=== PATIENT | male | born 1955 | race Caucasian/White ===

== ENCOUNTER 2018-05-12 09:10 | Outpatient (CLI) | payer BC ==
[2018-05-12 09:36] LABS: Basophils % (Auto) 0.4 % (0.0-1.8); Eosinophils # (Auto) 0.1 K/mm3 (0.0-0.4); Eosinophils % (Auto) 3.5 % (0.0-4.3); Hematocrit 36.8 % (35.5-45.6); Hemoglobin 12.2 gm/dl (11.8-15.2); Lymphocytes # (Auto) 1.2 K/mm3 (1.2-5.4); Lymphocytes % (Auto) 29.7 % (13.4-35.0); Mean Corpuscular HGB Conc 33 % (32-34); Mean Corpuscular Hemoglobin 28 pg (28-32); Mean Corpuscular Volume 84 fl (84-94); Monocytes # (Auto) 0.6 K/mm3 (0.0-0.8); Monocytes % (Auto) 14.3 % (0.0-7.3); Platelet Count 136 K/mm3 (140-440); Red Blood Count 4.37 M/mm3 (3.65-5.03); Red Cell Distribution Width 15.8 % (13.2-15.2)
[2018-05-12 09:46] LABS: Bilirubin,Urine NEG (Negative); Color,Urine Straw (Yellow)
[2018-05-12 09:47] LABS: Blood,Urine MOD (Negative); Protein,Urine <15 mg/dL mg/dL (Negative); Urobilinogen,Urine < 2.0 mg/dL (<2.0); WBC,Urine < 1.0 /HPF (0.0-6.0)
[2018-05-12 10:02] LABS: Alanine Aminotransferase 11 units/L (7-56); Albumin 4.2 g/dL (3.9-5); BUN/Creatinine Ratio 18; Blood Urea Nitrogen 11 mg/dL (9-20); Calcium 9.1 mg/dL (8.4-10.2); Hemolysis Index 82
== END 2018-05-12 09:11 | disposition home or self-care (01) ==
LOC: LAB 09:10
PROVIDERS: ATTEND Internal Medicine Cardiovascular Disease
DX: K59.1 Functional diarrhea (principal)
CPT/HCPCS: 36415; 80053; 81001; 83036; 84443; 85025; 86803

== ENCOUNTER 2018-08-11 16:45 | Emergency (ER) | payer BC ==
[2018-08-11 16:59] VITALS: BP 177/97
[2018-08-11] MEDS ORDERED: MORPHINE IV ONE (17:21)
[2018-08-11] MEDS ORDERED: ZOFRAN IV ONE (17:21)
[2018-08-11] MEDS ORDERED: NACL 0.9% 1000 ML 1,000 ML IV ONE (17:21)
--- NOTE | 2018-08-11 17:30 | Emergency Department Report ---
ED Abdominal Pain HPI - General Chief Complaint: Abdominal Pain Stated Complaint: STOMACH BLOATED/SHAKY Time Seen by Provider: 08/11/18 17:08 Source: patient Mode of arrival: Ambulatory Limitations: No Limitations - History of Present Illness Initial Comments: 63 y/o male c/o fo 4 day history of abdominal pain, nausea, vomiting and bloating with constipation. Seen pcp but enema and oral rx no help. last bm 2 days ago. MD Complaint: abdominal pain Location: diffuse Radiation: none Migration to: no migration Severity: moderate Quality: fullness, dull Consistency: constant Improves With: nothing Worsens With: nothing Associated Symptoms: nausea, vomiting, constipation. denies: melena, hematuria, anorexia - Related Data Previous Rx's Medication Instructions Recorded Last Taken Type Hyoscyamine Subl [Levsin Sl 0.125 0.125 mg SL Q4HR PRN #20 tablet 08/11/18 Unknown Rx TAB] Ondansetron [Zofran ODT TAB] 8 mg PO Q8HR #10 tab.rapdis 08/11/18 Unknown Rx Allergies Allergy/AdvReac Type Severity Reaction Status Date / Time No Known Allergies Allergy Unverified 05/12/18 09:11 ED Review of Systems ROS: Stated complaint: STOMACH BLOATED/SHAKY Other details as noted in HPI Constitutional: denies: chills, fever Eyes: denies: eye pain, eye discharge, vision change ENT: denies: ear pain, throat pain Respiratory: denies: cough, shortness of breath, wheezing Cardiovascular: denies: chest pain, palpitations Endocrine: no symptoms reported Gastrointestinal: abdominal pain, nausea, vomiting, constipation. denies: diarrhea Genitourinary: denies: urgency, dysuria Musculoskeletal: denies: back pain, joint swelling, arthralgia Skin: denies: rash, lesions Neurological: denies: headache, weakness, paresthesias Psychiatric: denies: anxiety, depression Hematological/Lymphatic: denies: easy bleeding, easy bruising ED Past Medical Hx - Past Medical History Previous Medical History?: No - Surgical History Past Surgical History?: No - Social History Smoking Status: Never Smoker Substance Use Type: Alcohol - Medications Home Medications: Home Medications Medication Instructions Recorded Confirmed Last Taken Type Hyoscyamine Subl [Levsin Sl 0.125 0.125 mg SL Q4HR PRN #20 tablet 08/11/18 Unknown Rx TAB] Ondansetron [Zofran ODT TAB] 8 mg PO Q8HR #10 tab.rapdis 08/11/18 Unknown Rx ED Physical Exam - General Limitations: No Limitations General appearance: alert, in no apparent distress - Head Head exam: Present: atraumatic, normocephalic - Eye Eye exam: Present: normal appearance - ENT ENT exam: Present: normal exam, normal orophraynx, mucous membranes moist - Neck Neck exam: Present: normal inspection, full ROM - Respiratory Respiratory exam: Present: normal lung sounds bilaterally. Absent: respiratory distress, wheezes, rales, rhonchi - Cardiovascular Cardiovascular Exam: Present: regular rate, normal rhythm. Absent: systolic murmur, diastolic murmur, rubs, gallop - GI/Abdominal GI/Abdominal exam: Present: soft, tenderness, normal bowel sounds, hyperactive bowel sounds, other (no cullens or rovsing sign. no greyturner. ). Absent: guarding, rebound - Rectal Rectal exam: Present: deferred - Extremities Exam Extremities exam: Present: normal inspection - Back Exam Back exam: Present: normal inspection. Absent: CVA tenderness (R), CVA tenderness (L) - Neurological Exam Neurological exam: Present: alert, oriented X3, CN II-XII intact, normal gait - Psychiatric Psychiatric exam: Present: normal affect, normal mood - Skin Skin exam: Present: warm, dry, intact, normal color. Absent: rash ED Course Vital Signs 08/11/18 16:55 Temperature 97.5 F L Pulse Rate 89 Respiratory 20 Rate Blood Pressure 177/97 O2 Sat by Pulse 98 Oximetry - Consultations Consultation #1: 08/11/18 21:[address] Barber. CT scan was reviewed as well as labs in the past medical history of the patient. Plan is to consult general surgery to evaluate for admission. As well as large bowel obstruction process going on here likely of a malignant origin ED Medical Decision Making - Lab Data Result diagrams: 08/11/18 17:38 08/11/18 17:38 - Radiology Data Radiology results: report reviewed - Medical Decision Making I did discuss with the patient the findings on the CT scan and laboratory data. Also discomfort in the discussion I had with the attending, Dr. Barber, and recommendation for admission for further evaluation and likely surgical intervention. Patient did decline these recommendations, and he understood all of the risks involved is alert and oriented 3 and of sound judgment. She doesn't understand the risk of chronic infection, chronic bleeding, chronic vomiting, perforation, , severe pain. This was discussed with the patient by myself and also the nursing staff. I spoke with him on 2 separate occasions. However, he continues to decline further recommendations. Critical care attestation.: If time is entered above; I have spent that time in minutes in the direct care of this critically ill patient, excluding procedure time. ED Disposition Clinical Impression: Abdominal pain, Large bowel obstruction Disposition: DC-01 TO HOME OR SELFCARE Is pt being admited?: No Does the pt Need Aspirin: No Condition: Stable Instructions: Acute Abdominal Pain (ED) Prescriptions: Hyoscyamine Subl [Levsin Sl 0.125 TAB] 0.125 mg SL Q4HR PRN #20 tablet PRN Reason: Spasms Ondansetron [Zofran ODT TAB] 8 mg PO Q8HR #10 tab.rapdis Referrals: PRIMARY CARE, [Primary Care Provider] - 3-5 Days Forms: AMA Form
[2018-08-11 18:04] LABS: Basophils % (Auto) 0.2 % (0.0-1.8); Eosinophils % (Auto) 0.1 % (0.0-4.3); Hematocrit 39.7 % (35.5-45.6); Hemoglobin 13.3 gm/dl (11.8-15.2); Lymphocytes # (Auto) 0.9 K/mm3 (1.2-5.4); Lymphocytes % (Auto) 8.2 % (13.4-35.0); Mean Corpuscular HGB Conc 34 % (32-34); Mean Corpuscular Volume 86 fl (84-94); Monocytes % (Auto) 8.7 % (0.0-7.3); Platelet Count 215 K/mm3 (140-440); Red Blood Count 4.62 M/mm3 (3.65-5.03); Red Cell Distribution Width 14.9 % (13.2-15.2)
[2018-08-11 18:11] LABS: Alanine Aminotransferase 9 units/L (7-56); Albumin 4.2 g/dL (3.9-5); BUN/Creatinine Ratio 29; Blood Urea Nitrogen 20 mg/dL (9-20); Calcium 8.5 mg/dL (8.4-10.2); Hemolysis Index 6
--- NOTE | 2018-08-11 19:50 | Cat Scan Report ---
FINAL REPORT PROCEDURE: CT ABDOMEN PELVIS W CON TECHNIQUE: Computerized axial tomography of the abdomen and pelvis was performed after the IV inject ion of iodinated nonionic contrast. HISTORY: Abdominal Pain COMPARISON: No prior studies are available for comparison. FINDINGS: Lower Lung andrade: No focal abnormality seen. Upper Abdomen: Possible small hiatal hernia. The stomach is otherwise unremarkable. Gallbladder is un remarkable. The adrenal glands, the pancreas and spleen are unremarkable. Kidneys, Ureters and Urinary bladder: No abnormalities are seen. Retroperitoneum: Atherosclerotic changes are seen in the abdominal aorta. No aneurysm is visualized. Nonspecific subcentimeter lymph nodes are seen in the retroperitoneum. No pathologically enlarged lym ph nodes are identified. Bowel: On axial image 92 series 2, sagittal image fifty-[age] series 601 and coronal reconstruction im age 67 series 602 there is an abrupt transition in the descending colon. Proximal to this transition large and small bowel are diffusely fluid distended, distal to this the colon is decompressed. There appears to be a short segment stricture. This has somewhat of an apple core type appearance extending over approximately 2.8 centimeters. This could represent an inflammatory stricture. Malignancy in th is area cannot be excluded. Bowel loops otherwise are unremarkable. No ascites or free intraperitonea l gas is seen. Normal-appearing appendix is seen in the right lower quadrant. Small umbilical hernia containing adipose tissue visualized. No herniated loops of bowel are seen. Reproductive organs: Nonspecific diffuse prostate enlargement visualized. Other: No acute bony abnormalities are identified. IMPRESSION: Abnormal area of lumen narrowing in the descending colon as described. A stricture appears to be pres ent. Inflammatory and malignant stricture could both present this manner. Moderate obstruction is see n at this site. No free air or ascites is visualized. Possible small hiatal hernia. Nonspecific diffuse prostate enlargement.
== END 2018-08-11 22:01 | disposition left against medical advice (07) ==
LOC: ED 16:45
DX: K56.699 Other intestinal obstruction unspecified as to partial versus complete obstruction (principal)
CPT/HCPCS: 36415; 74177; 80053; 83690; 85025; 96374; 96375; 99284; J2270; J2405; J7030; Q9967

== ENCOUNTER 2018-08-13 05:56 | Inpatient (IN) | payer BC ==
[2018-08-13] MEDS ORDERED: NACL 0.9% 1000 ML 1,000 ML IV ONE (06:06)
[2018-08-13 06:33] LABS: Hematocrit 38.8 % (35.5-45.6); Hemoglobin 13.2 gm/dl (11.8-15.2); Mean Corpuscular HGB Conc 34 % (32-34); Mean Corpuscular Volume 85 fl (84-94); Platelet Count 209 K/mm3 (140-440); Red Blood Count 4.57 M/mm3 (3.65-5.03); Red Cell Distribution Width 15.1 % (13.2-15.2)
[2018-08-13 06:45] LABS: Bilirubin,Urine NEG (Negative); Blood,Urine MOD (Negative); Color,Urine Amber (Yellow); Mucus,Urine 3+ /HPF
--- NOTE | 2018-08-13 06:50 | Emergency Department Report ---
ED Abdominal Pain HPI - General Chief Complaint: Abdominal Pain Stated Complaint: STOMACH PAIN Time Seen by Provider: 08/13/18 06:31 Source: patient Mode of arrival: Ambulatory Limitations: No Limitations - History of Present Illness Initial Comments: Vision is 63-year-old male that presents emergency room with complaints of abdominal pain going on for 4-5 days. Patient states he was seen here 2 days ago and found to have a large bowel obstruction however refused admission to the hospital. Patient states that he will stay in the hospital for necessary this time. Patient states his symptoms are worsening. Patient states his abdomen is more distended and has nausea vomiting is worsening. Patient denies bowel movement for the last few days as well. Patient denies fever or chills. There is no chest pain shortness of breath. Patient denies blood in the vomitus. MD Complaint: abdominal pain -: Sudden Location: diffuse Radiation: none Migration to: no migration Severity: severe Severity scale (0 -10): 8 Quality: aching, fullness Consistency: constant Improves With: rest Worsens With: eating, vomiting Associated Symptoms: nausea, vomiting, constipation. denies: diarrhea, fever, chills, dysuria, hematemesis, hematochezia, melena, hematuria, anorexia, syncope - Related Data Previous Rx's Medication Instructions Recorded Last Taken Type Hyoscyamine Subl [Levsin Sl 0.125 0.125 mg SL Q4HR PRN #20 tablet 08/11/18 Unknown Rx TAB] Ondansetron [Zofran ODT TAB] 8 mg PO Q8HR #10 tab.rapdis 08/11/18 Unknown Rx Allergies Allergy/AdvReac Type Severity Reaction Status Date / Time No Known Allergies Allergy Verified 08/13/18 06:05 ED Review of Systems ROS: Stated complaint: STOMACH PAIN Other details as noted in HPI Constitutional: denies: chills, fever Eyes: denies: eye pain, eye discharge, vision change ENT: denies: ear pain, throat pain Respiratory: denies: cough, shortness of breath, wheezing Cardiovascular: denies: chest pain, palpitations Endocrine: no symptoms reported Gastrointestinal: abdominal pain, nausea, vomiting, constipation. denies: diarrhea Genitourinary: denies: urgency, dysuria Musculoskeletal: denies: back pain, joint swelling, arthralgia Skin: denies: rash, lesions Neurological: denies: headache, weakness, paresthesias Psychiatric: denies: anxiety, depression Hematological/Lymphatic: denies: easy bleeding, easy bruising ED Past Medical Hx - Past Medical History Previous Medical History?: No - Surgical History Past Surgical History?: No - Family History Family history: no significant - Social History Smoking Status: Never Smoker Substance Use Type: None - Medications Home Medications: Home Medications Medication Instructions Recorded Confirmed Last Taken Type Hyoscyamine Subl [Levsin Sl 0.125 0.125 mg SL Q4HR PRN #20 tablet 08/11/18 Unknown Rx TAB] Ondansetron [Zofran ODT TAB] 8 mg PO Q8HR #10 tab.rapdis 08/11/18 Unknown Rx ED Physical Exam - General Limitations: No Limitations General appearance: alert, in no apparent distress - Head Head exam: Present: atraumatic, normocephalic - Eye Eye exam: Present: normal appearance - ENT ENT exam: Present: mucous membranes moist - Neck Neck exam: Present: normal inspection - Respiratory Respiratory exam: Present: normal lung sounds bilaterally. Absent: respiratory distress - Cardiovascular Cardiovascular Exam: Present: regular rate, normal rhythm. Absent: systolic murmur, diastolic murmur, rubs, gallop - GI/Abdominal GI/Abdominal exam: Present: soft, distended, tenderness (generalized abdominal tenderness), normal bowel sounds - Rectal Rectal exam: Present: deferred - Extremities Exam Extremities exam: Present: normal inspection - Back Exam Back exam: Present: normal inspection - Neurological Exam Neurological exam: Present: alert, oriented X3 - Psychiatric Psychiatric exam: Present: normal affect, normal mood - Skin Skin exam: Present: warm, dry, intact, normal color. Absent: rash ED Course Vital Signs 08/13/18 08/13/18 08/13/18 06:01 06:31 06:53 Temperature 97.3 F L Pulse Rate 106 H 91 H Respiratory 22 21 16 Rate Blood Pressure 147/80 141/77 Blood Pressure [Left] O2 Sat by Pulse 99 96 96 Oximetry 08/13/18 07:08 Temperature 97.6 F Pulse Rate 90 Respiratory 16 Rate Blood Pressure Blood Pressure 132/79 [Left] O2 Sat by Pulse 98 Oximetry - Reevaluation(s) Reevaluation #1: Initial evaluation done. Reviewed previous CT and labs. Discussed previous results with patient. Patient agrees to admission this time. We will consult Gen. surgery 08/13/18 06:30 - Consultations Consultation #1: Discussed case with general surgery, Dr keys. They recommended admission and did not recommend a repeat CT of the abdomen. They also recommend GI consult 08/13/18 07:20 Consultation #2: Hospital is consult for admission. Hospitalist to admit patient. Hospitalist to assume care patient. Bridge orders placed 08/13/18 07:30 ED Medical Decision Making - Lab Data Result diagrams: 08/13/18 06:09 08/13/18 06:09 - Radiology Data Radiology results: report reviewed CT from previous visit are reviewed and shows large bowel obstruction - Medical Decision Making Patient is 63-year-old male who presents emergency with worsening abdominal distention and nausea vomiting. Patient found to have on previous ER visit a large bowel obstruction. Patient refuses admission. Patient agrees to admission this time. Patient admitted to the hospitalist service for further evaluation treatment. - Differential Diagnosis large bowel obstruction. Intractable nausea and vomiting. Abdominal pain Critical Care Time: Yes Critical care attestation.: If time is entered above; I have spent that time in minutes in the direct care of this critically ill patient, excluding procedure time. Critical Care Time: 35 minutes ED Disposition Clinical Impression: Large bowel obstruction Abdominal pain Qualifiers: Abdominal location: generalized Qualified Code(s): R10.84 - Generalized abdominal pain Intractable nausea and vomiting Qualifiers: Vomiting type: unspecified Qualified Code(s): R11.2 - Nausea with vomiting, unspecified Disposition: OP ADMIT IP TO THIS HOSP Is pt being admited?: Yes Does the pt Need Aspirin: No Condition: Critical Time of Disposition: 07:30
[2018-08-13 06:57] LABS: Alanine Aminotransferase 12 units/L (7-56); Albumin 3.9 g/dL (3.9-5); BUN/Creatinine Ratio 23; Blood Urea Nitrogen 16 mg/dL (9-20); Calcium 8.6 mg/dL (8.4-10.2); Hemolysis Index 5
[2018-08-13] MEDS ORDERED: DILAUDID IV ONE (08:08)
[2018-08-13 08:44] LABS: Band Neutrophils # (Manual) 0.3 K/mm3; Total Cells Counted 100
[2018-08-13 08:45] LABS: Ovalocytes Rare; Platelet Estimate Consistent w Auto; Poikilocytosis 1+
--- NOTE | 2018-08-13 10:08 | Consultation ---
History of Present Illness Consult date: 08/13/18 Reason for consult: abdominal pain Requesting physician: CHRISTIANO LOPEZ Chief complaint: abdominal pain and bloating - History of present illness History of present illness: 63yo, o/w healthy male, presents with a 1 week h/o abdominal distention, pain, N/V. Denies any recent passage of flatus. He reports that he last had a BM 2-3 days ago with an enema. Prior to that, it had been coming in a scattered fashion. It recently has been appearing black. Denies any BRBPR. Not sure if he has lost weight. Up until recently, has been feeling well with no change in appetite. No family history of intestinal problems or cancer. No personal history of intestinal problems, infections, etc. 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 denies: smoking, prescription drug abuse, IV drug use Family history: no significant family history Medications and Allergies Allergies Allergy/AdvReac Type Severity Reaction Status Date / Time No Known Allergies Allergy Verified 08/13/18 06:05 Home Medications Medication Instructions Recorded Confirmed Last Taken Type Hyoscyamine Subl [Levsin Sl 0.125 0.125 mg SL Q4HR PRN #20 tablet 08/11/18 Unknown Rx TAB] Ondansetron [Zofran ODT TAB] 8 mg PO Q8HR #10 tab.rapdis 08/11/18 Unknown Rx Review of Systems - Constitutional no weight loss, no weight gain, no fever, no chills, no sweats, no night sweats, no chronic pain - Cardiovascular no chest pain, no shortness of breath - Respiratory no cough, no hemoptysis - Gastrointestinal abdominal pain, nausea, vomiting, change in bowel habits, dyspepsia/bloating, no hematemesis, no coffee ground emesis, no BRBPR, no melena, no hematochezia - Genitourinary no dysuria, no flank pain - Muskuloskeletal no low back pain - Integumentary no rash, no pruritis, no redness, no sores, no wounds, no jaundice, no boils Exam Vital Signs Temp Pulse Resp BP Pulse Ox 97.3 F L 106 H 22 147/80 99 08/13/18 06:01 08/13/18 06:01 08/13/18 06:01 08/13/18 06:01 08/13/18 06:01 - General physical appearance Positive: no distress, no pain, other (very pleasant) - Eyes Positive: normal occular movement. Negative: icteric - Respiratory Positive: normal expansion, normal respiratory effort, clear to auscultation - Cardiovascular Rhythm: regular - Extremities Extremities: no ischemia, pulses symmetrical, No edema - Abdomen Abdomen: Present: soft, tender (minimal), bowel sounds hypoactive, distended. Absent: masses, guarding, rigid, wound, surgical scars - Integumentary no rash, no growths, no abnormal pigmentation - Neurologic Neurologic: alert and oriented to time, place and person, motor strength and sensation are grossly intact - Psychiatric Psychiatric: appropriate mood/affect, intact judgment & insight Results - Labs 08/13/18 06:09 08/13/18 06:09 Abnormal lab results 08/13/18 08/13/18 08/13/18 Range/Units 06:09 06:09 Unknown WBC 3.4 L (4.5-11.0) K/mm3 Monocytes % (Manual) 20.0 H (0.0-7.3) % Basophils % (Manual) 3.0 H (0.0-1.8) % Seg Neutrophils # Man 1.7 L (1.8-7.7) K/mm3 Lymphocytes # (Manual) 0.6 L (1.2-5.4) K/mm3 Sodium 136 L (137-145) mmol/L Chloride 95.3 L (98-107) mmol/L Creatinine 0.7 L (0.8-1.5) mg/dL Glucose 118 H (75-100) mg/dL Lipase 12 L (13-60) units/L Ur Specific [place] 1.036 H (1.003-1.030) Diabetes panel 08/13/18 Range/Units 06:09 Sodium 136 L (137-145) mmol/L Potassium 3.8 (3.6-5.0) mmol/L Chloride 95.3 L (98-107) mmol/L Carbon Dioxide 24 (22-30) mmol/L BUN 16 (9-20) mg/dL Creatinine 0.7 L (0.8-1.5) mg/dL Glucose 118 H (75-100) mg/dL Calcium 8.6 (8.4-10.2) mg/dL AST 18 (5-40) units/L ALT 12 (7-56) units/L Alkaline Phosphatase 52 (35-129) units/L Total Protein 6.7 (6.3-8.2) g/dL Albumin 3.9 (3.9-5) g/dL Calcium panel 08/13/18 Range/Units 06:09 Calcium 8.6 (8.4-10.2) mg/dL Albumin 3.9 (3.9-5) g/dL Pituitary panel 08/13/18 Range/Units 06:09 Sodium 136 L (137-145) mmol/L Potassium 3.8 (3.6-5.0) mmol/L Chloride 95.3 L (98-107) mmol/L Carbon Dioxide 24 (22-30) mmol/L BUN 16 (9-20) mg/dL Creatinine 0.7 L (0.8-1.5) mg/dL Glucose 118 H (75-100) mg/dL Calcium 8.6 (8.4-10.2) mg/dL Adrenal panel 08/13/18 Range/Units 06:09 Sodium 136 L (137-145) mmol/L Potassium 3.8 (3.6-5.0) mmol/L Chloride 95.3 L (98-107) mmol/L Carbon Dioxide 24 (22-30) mmol/L BUN 16 (9-20) mg/dL Creatinine 0.7 L (0.8-1.5) mg/dL Glucose 118 H (75-100) mg/dL Calcium 8.6 (8.4-10.2) mg/dL Total Bilirubin 0.70 (0.1-1.2) mg/dL AST 18 (5-40) units/L ALT 12 (7-56) units/L Alkaline Phosphatase 52 (35-129) units/L Total Protein 6.7 (6.3-8.2) g/dL Albumin 3.9 (3.9-5) g/dL - Imaging CT scan - abdomen: report reviewed, image reviewed CT scan - pelvis: report reviewed, image reviewed Assessment and Plan - Patient Problems (1) Large bowel obstruction Current Visit: Yes Status: Acute Plan to address problem: Pt stable. No emergency procedure needed at this time. Pt appears to have an obstructing lesion in the left colon. My suspicion is that this is a cancer and would benefit from surgery. Pt would like to explore alternatives. I spoke with GI and asked them to consult. Hopefully, they will be able to scope the patient. Will order a CEA level. Would keep patient NPO for now. Will be available as needed. Please call with questions.
--- NOTE | 2018-08-13 10:19 | History and Physical Report ---
History of Present Illness Date of examination: 08/13/18 Date of admission: 08/13/18 07:59 History of present illness: 63-year-old male w/o ant PMH presents to the emergency room with complaints of abdominal pain going on for 4-5 days. Patient was seen here 2 days ago and found to have a large bowel obstruction however he refused admission to the hospital. but Patient states his symptoms are worsening with more abdominal distention along with N/V and that he will stay in the hospital as necessary this time. Patient denies denies fever or chills, had no bowel movement for the last few days as well. GS consulted from ER and he is being admitted for further evaluation and management. Review of Systems Constitutional: denies: chills, fever Eyes: denies: eye pain, eye discharge, vision change ENT: denies: ear pain, throat pain Respiratory: denies: cough, shortness of breath, wheezing Cardiovascular: denies: chest pain, palpitations Endocrine: no symptoms reported Gastrointestinal: abdominal pain, nausea, vomiting, constipation. denies: diarrhea Genitourinary: denies: urgency, dysuria Musculoskeletal: denies: back pain, joint swelling, arthralgia Skin: denies: rash, lesions Neurological: denies: headache, weakness, paresthesias Psychiatric: denies: anxiety, depression Hematological/Lymphatic: denies: easy bleeding, easy bruising Past History Past Medical History: No medical history Past Surgical History: No surgical history Social history: , lives with family. denies: smoking, prescription drug abuse Family history: denies: CAD, cancer, diabetes, hypertension, stroke Medications and Allergies Allergies Allergy/AdvReac Type Severity Reaction Status Date / Time No Known Allergies Allergy Verified 08/13/18 06:05 Home Medications Medication Instructions Recorded Confirmed Last Taken Type Hyoscyamine Subl [Levsin Sl 0.125 0.125 mg SL Q4HR PRN #20 tablet 08/11/18 08/13/18 Unknown Rx TAB] Ondansetron [Zofran ODT TAB] 8 mg PO Q8HR #10 tab.rapdis 08/11/18 08/13/18 Unknown Rx Exam - Constitutional Vitals: Temp Pulse Resp BP Pulse Ox 97.6 F 90 16 132/79 98 08/13/18 07:08 08/13/18 07:08 08/13/18 07:08 08/13/18 07:08 08/13/18 07:08 General appearance: Present: mild distress - EENT Eyes: Present: PERRL ENT: hearing intact, clear oral mucosa - Neck Neck: Present: supple, normal ROM - Respiratory Respiratory effort: normal Respiratory: bilateral: CTA - Cardiovascular Heart Sounds: Present: S1 & S2. Absent: rub, click - Extremities Extremities: pulses symmetrical, No edema Peripheral Pulses: within normal limits - Abdominal General gastrointestinal: Present: tender, distended, normal bowel sounds Localized gastrointestinal: tender: diffuse - Integumentary Integumentary: Present: clear, warm, dry - Musculoskeletal Musculoskeletal: gait normal, strength equal bilaterally - Psychiatric Psychiatric: appropriate mood/affect, intact judgment & insight - Neurologic Neurologic: CNII-XII intact, moves all extremities Results - Labs CBC & Chem 7: 08/13/18 06:09 08/13/18 06:09 Labs: Abnormal lab results 08/13/18 08/13/18 08/13/18 Range/Units 06:09 06:09 Unknown WBC 3.4 L (4.5-11.0) K/mm3 Monocytes % (Manual) 20.0 H (0.0-7.3) % Basophils % (Manual) 3.0 H (0.0-1.8) % Seg Neutrophils # Man 1.7 L (1.8-7.7) K/mm3 Lymphocytes # (Manual) 0.6 L (1.2-5.4) K/mm3 Sodium 136 L (137-145) mmol/L Chloride 95.3 L (98-107) mmol/L Creatinine 0.7 L (0.8-1.5) mg/dL Glucose 118 H (75-100) mg/dL Lipase 12 L (13-60) units/L Ur Specific [place] 1.036 H (1.003-1.030) Assessment and Plan Abdominal pain with n/v - Intestinal obstruction - likely due to an obstructing lesion in the left colon. - admit to surgical unit, refusing surgery and asking for different options - GI consulted, keep NPO, - supportive care with iv fluid, pain control - DVt Px CT abdomen/pelvis: Abnormal area of lumen narrowing in the descending colon as described. A stricture appears to be present. Inflammatory and malignant stricture could both present this manner. Moderate obstruction is seen at this site. No free air or ascites is visualized. Possible small hiatal hernia. Nonspecific diffuse prostate enlargement.
[2018-08-13] MEDS ORDERED: ZOFRAN IV PRN (10:20)
[2018-08-13] MEDS ORDERED: APRESOLINE IV PRN (10:20)
[2018-08-13] MEDS ORDERED: ATIVAN IV PRN (10:20)
[2018-08-13] MEDS: MORPHINE IV PRN ×2 (11:59→18:27)
[2018-08-13] MEDS: D5NS 1,000 ML IV SCH ×2 (12:00→22:47)
--- NOTE | 2018-08-13 13:53 | Gastroenterology Consultation ---
Addendum entered and electronically signed by CORRINE BARRIOS MD 08/13/18 15:14: I have personally interviewed and examined the patient. I agree with the above A/P. I discussed the risks of perforation with the patient, in someone already markedly distended (or aspiration), as well as the fact that stenting is a temporary bridge to surgery, and would not prevent the ultimate need for surgical intervention. Ideally, visualization and biopsy of the unerlying colon lesion would be done first, but given the degree of distention the high-grade obstruction, I think the patient would be most effectively treated by surgery, even if a (temporary) colostomy is needed after the procedure. The patient voiced understanding of the problem, and wishes to rediscuss surgical int ervention with Dr Teixeira. Original Note: History of Present Illness - Reason for Consult Consult date: 08/13/18 colon obstruction Requesting physician: ELISHA TEIXEIRA - History of Present Illness Patient is a 63 y/o male with no significant medical history who presented to ED with w/o abd pain with associated abd distention, N/V, and constipation. He was seen here 2 days ago and found to have a large bowel obstruction seen on CT, however he refused admission to the hospital at that time. Patient has been seen by surgery with recommendations for surgery, however patient is currently refusing and would like to explore alternative options if possible. GI has been consulted for a possible colonoscopy. This afternoon patient was resting in bed w/o acute distress. He reports intermittent abd pain with a change in bowel habits/constipation x 3 months that has progressively worsened over the last 4-5 days with developing N/V and inabilty to tolerate PO. Last BM 2-3 days ago with an enema. No recent flatus. Denies fever, CP, SOB, signs of bleeding, or d iarrhea. He is unsure if he has lost weight. No hx or Fhx of IBD or GI cancers. No previous colonoscopy. Upon exam, abdomen is distended with hypoactive bowel sounds. 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 denies: smoking, prescription drug abuse, IV drug use Family history: no significant family history Medications and Allergies Allergies Allergy/AdvReac Type Severity Reaction Status Date / Time No Known Allergies Allergy Verified 08/13/18 06:05 Home Medications Medication Instructions Recorded Confirmed Last Taken Type Hyoscyamine Subl [Levsin Sl 0.125 0.125 mg SL Q4HR PRN #20 tablet 08/11/18 Unknown Rx TAB] Ondansetron [Zofran ODT TAB] 8 mg PO Q8HR #10 tab.rapdis 08/11/18 Unknown Rx Active Meds: Active Medications Hydralazine HCl (Apresoline) 5 mg IV Q30MIN PRN PRN Reason: Hypertension Dextrose/Sodium Chloride (D5ns) 1,000 mls @ 125 mls/hr IV DIRECT CK Last Admin: 08/13/18 12:00 Dose: 125 mls/hr Documented by: Lorazepam (Ativan) 2 mg IV Q4H PRN PRN Reason: Agitation Morphine Sulfate (Morphine) 2 mg IV Q3H PRN PRN Reason: Pain, Moderate (4-6) Last Admin: 08/13/18 11:59 Dose: 2 mg Documented by: Ondansetron HCl (Zofran) 4 mg IV Q8H PRN PRN Reason: Nausea And Vomiting medications reviewed/updated as required Review of Systems - Review of Systems All systems: negative Gastrointestinal: abdominal pain, nausea, vomiting, constipation Exam - Constitutional Vital Signs: Temp Pulse Resp BP Pulse Ox 97.6 F 90 16 132/79 98 08/13/18 07:08 08/13/18 07:08 08/13/18 07:08 08/13/18 07:08 08/13/18 07:08 General appearance: no acute distress - Respiratory Respiratory: bilateral: CTA - Cardiovascular Rhythm: regular Heart Sounds: Present: S1 & S2 - Gastrointestinal General gastrointestinal: Present: soft, tender (slight generalized TTP), distended, hypoactive bowel sounds - Neurologic Neurological: alert and oriented x3 - Labs CBC & Chem 7: 08/13/18 06:09 08/13/18 06:09 Lab Results: Laboratory Results - last 24 hr 08/13/18 08/13/18 08/13/18 06:09 06:09 07:32 WBC 3.4 L RBC 4.57 Hgb 13.2 Hct 38.8 MCV 85 MCH 29 MCHC 34 RDW 15.1 Plt Count 209 [place] % (Auto) Billet Heater Add Manual Diff Complete Total Counted 100 Seg Neuts % (Manual) 49.0 Band Neutrophils % 9.0 Lymphocytes % (Manual) 18.0 Reactive Lymphs % (Man) 0 Monocytes % (Manual) 20.0 H Eosinophils % (Manual) 1.0 Basophils % (Manual) 3.0 H Metamyelocytes % 0 Myelocytes % 0 Promyelocytes % 0 Blast Cells % 0 Nucleated RBC % Not Reportable Seg Neutrophils # Man 1.7 L Band Neutrophils # 0.3 Lymphocytes # (Manual) 0.6 L Abs React Lymphs (Man) 0.0 Monocytes # (Manual) 0.7 Eosinophils # (Manual) 0.0 Basophils # (Manual) 0.1 Metamyelocytes # 0.0 Myelocytes # 0.0 Promyelocytes # 0.0 Blast Cells # 0.0 WBC Morphology Not Reportable Hypersegmented Neuts Not Reportable Hyposegmented Neuts Not Reportable Hypogranular Neuts Not Reportable Smudge Cells Not Reportable Toxic Granulation Not Reportable Toxic Vacuolation Not Reportable Dohle Bodies Not Reportable Pelger-Huet Anomaly Not Reportable Emy Rods Not Reportable Platelet Estimate Consistent w auto Clumped Platelets Not Reportable Plt Clumps, EDTA Not Reportable Large Platelets Not Reportable Giant Platelets Not Reportable Platelet Satelliting Not Reportable Plt Morphology Comment Not Reportable RBC Morphology Not Reportable Dimorphic RBCs Not Reportable Polychromasia Not Reportable Hypochromasia Not Reportable Poikilocytosis 1+ Anisocytosis Not Reportable Microcytosis Not Reportable Macrocytosis Not Reportable Spherocytes Not Reportable Pappenheimer Bodies Not Reportable Sickle Cells Not Reportable Target Cells Not Reportable Tear Drop Cells Not Reportable Ovalocytes Rare Helmet Cells Not Reportable Urias-[place] Bodies Not Reportable Zumbrota Rings Not Reportable Hixton Cells Not Reportable Bite Cells Not Reportable Crenated Cell Not Reportable Elliptocytes Not Reportable Acanthocytes (Spur) Not Reportable Rouleaux Not Reportable Hemoglobin C Crystals Not Reportable Schistocytes Not Reportable Malaria parasites Not Reportable Dannie Bodies Not Reportable Hem Pathologist Commnt No Sodium 136 L Potassium 3.8 Chloride 95.3 L Carbon Dioxide 24 Anion Gap 21 BUN 16 Creatinine 0.7 L Estimated GFR > 60 BUN/Creatinine Ratio 23 Glucose 118 H Lactic Acid 0.70 Calcium 8.6 Total Bilirubin 0.70 AST 18 ALT 12 Alkaline Phosphatase 52 Total Protein 6.7 Albumin 3.9 Albumin/Globulin Ratio 1.4 Lipase 12 L Urine Color Urine Turbidity Urine pH Ur Specific Menan Urine Protein Urine Glucose (UA) Urine Ketones Urine Blood Urine Nitrite Urine Bilirubin Urine Urobilinogen Ur Leukocyte Esterase Urine WBC (Auto) Urine RBC (Auto) U Epithel Cells (Auto) Urine Mucus 08/13/18 Unknown WBC RBC Hgb Hct MCV MCH MCHC RDW Plt Count Traverse % (Auto) Add Manual Diff Total Counted Seg Neuts % (Manual) Band Neutrophils % Lymphocytes % (Manual) Reactive Lymphs % (Man) Monocytes % (Manual) Eosinophils % (Manual) Basophils % (Manual) Metamyelocytes % Myelocytes % Promyelocytes % Blast Cells % Nucleated RBC % Seg Neutrophils # Man Band Neutrophils # Lymphocytes # (Manual) Abs React Lymphs (Man) Monocytes # (Manual) Eosinophils # (Manual) Basophils # (Manual) Metamyelocytes # Myelocytes # Promyelocytes # Blast Cells # WBC Morphology Hypersegmented Neuts Hyposegmented Neuts Hypogranular Neuts Smudge Cells Toxic Granulation Toxic Vacuolation Dohle Bodies Pelger-Huet Anomaly Emy Rods Platelet Estimate Clumped Platelets Plt Clumps, EDTA Large Platelets Giant Platelets Platelet Satelliting Plt Morphology Comment RBC Morphology Dimorphic RBCs Polychromasia Hypochromasia Poikilocytosis Anisocytosis Microcytosis Macrocytosis Spherocytes Pappenheimer Bodies Sickle Cells Target Cells Tear Drop Cells Ovalocytes Helmet Cells Urias-Rob[place] Bodies Zumbrota Rings Mariusz Cells Bite Cells Crenated Cell Elliptocytes Acanthocytes (Spur) Rouleaux Hemoglobin C Crystals Schistocytes Malaria parasites Dannie Bodies Hem Pathologist Commnt Sodium Potassium Chloride Carbon Dioxide Anion Gap BUN Creatinine Estimated GFR BUN/Creatinine Ratio Glucose Lactic Acid Calcium Total Bilirubin AST ALT Alkaline Phosphatase Total Protein Albumin Albumin/Globulin Ratio Lipase Urine Color Velia Urine Turbidity Hazy Urine pH 5.0 Ur Specific Menan 1.036 H Urine Protein 30 mg/dl Urine Glucose (UA) Neg Urine Ketones 80 Urine Blood Mod Urine Nitrite Neg Urine Bilirubin Neg Urine Urobilinogen 4.0 Ur Leukocyte Esterase Neg Urine WBC (Auto) 3.0 Urine RBC (Auto) 28.0 U Epithel Cells (Auto) < 1.0 Urine Mucus 3+ Assessment and Plan 1.large bowel obstruction -etiology-likely malignant in origin -abd CT showed abnormal area of lumen narrowing in the descending colon (inflammatory vs malignant stricture?) with moderate obstruction -surgery is following- patient currently refusing surgical intervention -CEA level pending -Keep NPO -will discuss the option of a colonoscopy/flex sig with Dr. Barrios and have him review imaging -continue supportive care -further recommendations to follow
[2018-08-13] MEDS ORDERED: FLEET PR ONE (20:00)
[2018-08-14] MEDS: D5NS 1,000 ML IV SCH ×2 (07:29→17:16)
--- NOTE | 2018-08-14 09:52 | Progress Note ---
Assessment and Plan - Patient Problems (1) Large bowel obstruction Current Visit: Yes Status: Acute Plan to address problem: Pt stable. Tentatively planning for left hemicolectomy tomorrow. Pre-op orders placed for today. Pt had good result with enema last night. Will repeat today to further aid cleaning and help decompress the colon. Consent obtained last night. Please call with questions. time=10min Subjective Date of service: 08/14/18 Patient Reports: Positive: feels better, pain is less, bowel movement (with enema). Negative: nausea, vomiting Objective Vital Signs - 12hr 08/13/18 08/14/18 08/14/18 22:00 05:00 07:45 Temperature 98.2 F 97.9 F Pulse Rate 94 H 92 H Pulse Rate [ 95 H Left Radial] Respiratory 16 18 Rate Respiratory 17 Rate [abd] Blood Pressure 109/78 114/79 [Left] O2 Sat by Pulse 95 95 96 Oximetry - General physical appearance no distress, no pain - Eyes normal occular movement - Respiratory normal expansion, normal respiratory effort - Abdomen soft, not tender, distended (less today), not masses, not guarding, not rigid - Integumentary no rash, no growths, no abnormal pigmentation - Psychiatric oriented to time, oriented to person, oriented to place, speech is normal, memory intact - Labs 08/13/18 06:09 08/13/18 06:09
[2018-08-14] MEDS ORDERED: FLEET PR ONE (10:00)
--- NOTE | 2018-08-14 11:35 | Gastroenterology Progress Note ---
Addendum entered and electronically signed by CORRINE BARRIOS MD 08/14/18 15:01: I have personally interviewed and examined the patient. I agree with the above A/P. Agree with the current plan. Original Note: Assessment and Plan 1.large bowel obstruction -etiology-likely malignant in origin -abd CT showed abnormal area of lumen narrowing in the descending colon (inflammatory vs malignant stricture?) with moderate obstruction -CEA level pending -no plans for colonoscopy-contraindicated given high-grade obstruction -surgery following with patient now agreeable to proceed with left hemicolectomy (scheduled for tomorrow) -Keep NPO -continue supportive care -further management per surgery -will sign off, please call if needed Subjective Date of service: 08/14/18 Principal diagnosis: large bowel obstruction Interval history: Patient resting in bed this am w/o acute distress. Reports feeling better today with abd pain/distention improved after BM overnight with enema. No N/V. Objective - Constitutional Vitals: Temp Pulse Resp BP Pulse Ox 97.9 F 92 H 18 114/79 96 08/14/18 07:45 08/14/18 07:45 08/14/18 07:45 08/14/18 07:45 08/14/18 07:45 General appearance: no acute distress - Respiratory Respiratory: bilateral: CTA - Cardiovascular Rhythm: regular Heart Sounds: Present: S1 & S2 - Gastrointestinal General gastrointestinal: Present: soft, non-tender, distended (improved today), hypoactive bowel sounds - Neurologic Neurological: alert and oriented x3 - Labs CBC & Chem 7: 08/13/18 06:09 08/13/18 06:09
--- NOTE | 2018-08-14 13:54 | Progress Note ---
Assessment and Plan Abdominal pain with n/v - Intestinal obstruction - likely due to an obstructing lesion in the left colon. - monitor at surgical unit, surgery following with patient now agreeable to proceed with left hemicolectomy (scheduled for tomorrow) - keep NPO, cont supportive care with iv fluid, pain control - DVt Px, monitor and replete electrolytes as needed CT abdomen/pelvis: Abnormal area of lumen narrowing in the descending colon as described. A stricture appears to be present. Inflammatory and malignant stricture could both present this manner. Moderate obstruction is seen at this site. No free air or ascites is visualized. Possible small hiatal hernia. Nonspecific diffuse prostate enlargement. Subjective Date of service: 08/14/18 Principal diagnosis: large bowel obstruction Interval history: Patient seen and examined had BM with enema as a part of bowel prep patient agreeable for surgery Objective - Exam Narrative Exam: General appearance: Present: mild distress - EENT Eyes: Present: PERRL ENT: hearing intact, clear oral mucosa - Neck Neck: Present: supple, normal ROM - Respiratory Respiratory effort: normal Respiratory: bilateral: CTA - Cardiovascular Heart Sounds: Present: S1 & S2. Absent: rub, click - Extremities Extremities: pulses symmetrical, No edema Peripheral Pulses: within normal limits - Abdominal General gastrointestinal: Present: tender, distended, normal bowel sounds Localized gastrointestinal: tender: diffuse - Integumentary Integumentary: Present: clear, warm, dry - Musculoskeletal Musculoskeletal: gait normal, strength equal bilaterally - Psychiatric Psychiatric: appropriate mood/affect, intact judgment & insight - Neurologic Neurologic: CNII-XII intact, moves all extremities - Constitutional Vitals: Vital Signs - 12hr 08/14/18 08/14/18 08/14/18 05:00 07:45 11:14 Temperature 98.2 F 97.9 F Pulse Rate 94 H 92 H 84 Respiratory 16 18 Rate Blood Pressure 127/66 Blood Pressure 109/78 114/79 [Left] O2 Sat by Pulse 95 96 96 Oximetry 08/14/18 11:20 Temperature 97.9 F Pulse Rate 74 Respiratory 18 Rate Blood Pressure 144/56 Blood Pressure [Left] O2 Sat by Pulse 93 Oximetry - Labs CBC & Chem 7: 08/15/18 05:18 08/15/18 05:18
[2018-08-15] MEDS: D5NS 1,000 ML IV SCH ×2 (00:52→08:38)
[2018-08-15 05:49] LABS: Hematocrit 32.3 % (35.5-45.6); Hemoglobin 11.2 gm/dl (11.8-15.2); Mean Corpuscular HGB Conc 35 % (32-34); Mean Corpuscular Volume 85 fl (84-94); Platelet Count 148 K/mm3 (140-440); Red Blood Count 3.79 M/mm3 (3.65-5.03); Red Cell Distribution Width 14.6 % (13.2-15.2)
[2018-08-15 06:08] LABS: BUN/Creatinine Ratio 4; Blood Urea Nitrogen 2 mg/dL (9-20); Calcium 7.7 mg/dL (8.4-10.2); Hemolysis Index 6
[2018-08-15 06:46] LABS: Band Neutrophils # (Manual) 0.2 K/mm3; Basophils % (Manual) 0 % (0.0-1.8); Total Cells Counted 100
[2018-08-15 06:47] LABS: Anisocytosis Few; Ovalocytes Rare; Platelet Estimate Consistent w Auto
[2018-08-15] MEDS: KCL 10MEQ/100ML 10 MEQ/100 ML BAG IV SCH ×2 (08:41→09:55)
--- NOTE | 2018-08-15 09:34 | Progress Note ---
Assessment and Plan - Patient Problems (1) Large bowel obstruction Current Visit: Yes Status: Acute Plan to address problem: Pt stable. left hemicolectomy today. K low. Ordered replacements. Plan for RODRIGO block in OR. Consent on chart. Please call with questions. time=10min Subjective Date of service: 08/15/18 Patient Reports: Positive: feels better, diarrhea, other (no problems o/n.) Objective Vital Signs - 12hr 08/14/18 08/15/18 08/15/18 23:43 04:23 07:42 Temperature 98.6 F 98.4 F 98.4 F Pulse Rate 80 74 73 Respiratory 20 20 18 Rate Blood Pressure 132/66 122/69 Blood Pressure 106/52 [Left] O2 Sat by Pulse 98 97 100 Oximetry - General physical appearance no distress, no pain - Eyes normal occular movement - Respiratory normal expansion, normal respiratory effort - Abdomen soft, not tender, not guarding, not rigid, other (abdomen almost back to normal size. ) - Integumentary no rash, no growths, no abnormal pigmentation - Psychiatric oriented to time, oriented to person, oriented to place, speech is normal, memory intact - Labs 08/15/18 05:18 08/15/18 05:18 Diabetes panel 08/15/18 Range/Units 05:18 Sodium 139 (137-145) mmol/L Potassium 3.1 L (3.6-5.0) mmol/L Chloride 102.8 (98-107) mmol/L Carbon Dioxide 27 (22-30) mmol/L BUN 2 L (9-20) mg/dL Creatinine 0.5 L (0.8-1.5) mg/dL Glucose 124 H (75-100) mg/dL Calcium 7.7 L (8.4-10.2) mg/dL Calcium panel 08/15/18 Range/Units 05:18 Calcium 7.7 L (8.4-10.2) mg/dL Pituitary panel 08/15/18 Range/Units 05:18 Sodium 139 (137-145) mmol/L Potassium 3.1 L (3.6-5.0) mmol/L Chloride 102.8 (98-107) mmol/L Carbon Dioxide 27 (22-30) mmol/L BUN 2 L (9-20) mg/dL Creatinine 0.5 L (0.8-1.5) mg/dL Glucose 124 H (75-100) mg/dL Calcium 7.7 L (8.4-10.2) mg/dL Adrenal panel 08/15/18 Range/Units 05:18 Sodium 139 (137-145) mmol/L Potassium 3.1 L (3.6-5.0) mmol/L Chloride 102.8 (98-107) mmol/L Carbon Dioxide 27 (22-30) mmol/L BUN 2 L (9-20) mg/dL Creatinine 0.5 L (0.8-1.5) mg/dL Glucose 124 H (75-100) mg/dL Calcium 7.7 L (8.4-10.2) mg/dL
[2018-08-15] MEDS ORDERED: UNASYN/NS 3 GM/100 ML 3 GM/100 ML BAG IV SCH (10:00)
[2018-08-15] MEDS ORDERED: MARCAINE 0.5% INFILTRATI ONE (10:26)
[2018-08-15] MEDS ORDERED: SUBLIMAZE ONE ×4 (10:30→15:25)
[2018-08-15] MEDS ORDERED: VERSED ONE (10:31)
[2018-08-15] MEDS ORDERED: DECADRON ONE (10:34)
[2018-08-15] MEDS ORDERED: LACTATED RINGERS 1,000 ML ONE (10:52)
[2018-08-15] MEDS ORDERED: DIPRIVAN 10 MG/ML IV ONE ×2 (10:53→12:32)
[2018-08-15] MEDS ORDERED: XYLOCAINE MPF 2% ONE (10:55)
[2018-08-15] MEDS ORDERED: ZEMURON IV ONE ×2 (10:55→14:31)
[2018-08-15] MEDS ORDERED: NEURONTIN ONE (11:41)
--- NOTE | 2018-08-15 12:26 | Anesthesia Day of Surgery ---
Anesthesia Day of Surgery - Day of Surgery Patient Examined: Yes Patient H&P Reviewed: Yes Patient is NPO: Yes
--- NOTE | 2018-08-15 12:41 | Anesthesia Consultation ---
Anesthesia Consult and Med Hx Date of service: 08/15/18 - Airway Anesthetic Teeth Evaluation: Poor ROM Head & Neck: Adequate Mental/Hyoid Distance: Adequate Mallampati Class: Class III Intubation Access Assessment: Possibly Difficult - Pulmonary Exam CTA: Yes - Cardiac Exam Cardiac Exam: RRR - Pre-Operative Health Status ASA Pre-Surgery Classification: ASA2 Proposed Anesthetic Plan: General
[2018-08-15] MEDS ORDERED: NACL 0.9% IR ONE (14:57)
[2018-08-15] MEDS ORDERED: ZOFRAN ONE (15:16)
[2018-08-15] MEDS ORDERED: BLOXIVERZ ONE (15:23)
[2018-08-15] MEDS ORDERED: ROBINUL ONE (15:23)
--- NOTE | 2018-08-15 15:54 | Post Operative Note ---
Date of procedure: 08/15/18 (Dictation:[id number]) Pre-op diagnosis: colon obstruction Post-op diagnosis: same Findings: mass in left colon with multiple adhesions. presumed bilateral testicles in the pelvis. appendix was retrocecal. Procedure: Open left hemicolectomy with primary anastomosis splenix flexure mobilization Anesthesia: SEBASTIAN Surgeon: ELISHA PECK Station Cook: TWAN MICHELE Estimated blood loss: 50-100ml Pathology: list (left colon and part of omentum) Specimen disposition: to lab Condition: stable Disposition: PACU
--- NOTE | 2018-08-15 17:12 | Progress Note ---
Assessment and Plan Abdominal pain with n/v - Intestinal obstruction - likely due to an obstructing lesion in the left colon. - monitor at surgical unit, surgery following with patient, planned for left hemicolectomy today - keep NPO, cont supportive care with iv fluid, pain control - DVt Px, monitor and replete electrolytes as needed CT abdomen/pelvis: Abnormal area of lumen narrowing in the descending colon as described. A stricture appears to be present. Inflammatory and malignant stricture could both present this manner. Moderate obstruction is seen at this site. No free air or ascites is visualized. Possible small hiatal hernia. Nonspecific diffuse prostate enlargement. Subjective Date of service: 08/15/18 Principal diagnosis: large bowel obstruction Interval history: Patient seen and examined patient agreeable for surgery no acute event Objective - Exam Narrative Exam: General appearance: Present: mild distress - EENT Eyes: Present: PERRL ENT: hearing intact, clear oral mucosa - Neck Neck: Present: supple, normal ROM - Respiratory Respiratory effort: normal Respiratory: bilateral: CTA - Cardiovascular Heart Sounds: Present: S1 & S2. Absent: rub, click - Extremities Extremities: pulses symmetrical, No edema Peripheral Pulses: within normal limits - Abdominal General gastrointestinal: Present: tender, distended, normal bowel sounds Localized gastrointestinal: tender: diffuse - Integumentary Integumentary: Present: clear, warm, dry - Musculoskeletal Musculoskeletal: gait normal, strength equal bilaterally - Psychiatric Psychiatric: appropriate mood/affect, intact judgment & insight - Neurologic Neurologic: CNII-XII intact, moves all extremities - Constitutional Vitals: Vital Signs - 12hr 08/15/18 08/15/18 08/15/18 07:42 11:00 11:11 Temperature 98.4 F 981 F H Pulse Rate 73 71 81 Respiratory 18 16 11 L Rate Blood Pressure 126/69 133/72 Blood Pressure 106/52 [Left] O2 Sat by Pulse 100 98 96 Oximetry 08/15/18 08/15/18 08/15/18 11:19 11:24 11:29 Temperature Pulse Rate 71 66 64 Respiratory 10 L 9 L 11 L Rate Blood Pressure 115/65 121/65 115/66 Blood Pressure [Left] O2 Sat by Pulse 94 92 96 Oximetry 08/15/18 08/15/18 08/15/18 15:50 15:55 16:00 Temperature 95 F L Pulse Rate 84 68 74 Respiratory 18 14 11 L Rate Blood Pressure 111/55 114/64 116/63 Blood Pressure [Left] O2 Sat by Pulse 100 100 100 Oximetry 08/15/18 08/15/18 08/15/18 16:05 16:10 16:15 Temperature Pulse Rate 73 70 69 Respiratory 12 11 L 16 Rate Blood Pressure 109/63 114/62 102/58 Blood Pressure [Left] O2 Sat by Pulse 100 100 100 Oximetry 08/15/18 08/15/18 16:30 17:00 Temperature 99 F 97.3 F L Pulse Rate 72 69 Respiratory 14 17 Rate Blood Pressure 108/57 Blood Pressure 103/57 [Left] O2 Sat by Pulse 100 97 Oximetry - Labs CBC & Chem 7: 08/16/18 07:50 08/16/18 07:50 Labs: Abnormal lab results 08/15/18 08/15/18 Range/Units 05:18 05:18 WBC 3.3 L (4.5-11.0) K/mm3 Hgb 11.2 L (11.8-15.2) gm/dl Hct 32.3 L D (35.5-45.6) % MCHC 35 H (32-34) % Monocytes % (Manual) 13.0 H (0.0-7.3) % Lymphocytes # (Manual) 0.6 L (1.2-5.4) K/mm3 Potassium 3.1 L (3.6-5.0) mmol/L BUN 2 L (9-20) mg/dL Creatinine 0.5 L (0.8-1.5) mg/dL Glucose 124 H (75-100) mg/dL Calcium 7.7 L (8.4-10.2) mg/dL
[2018-08-15] MEDS: D5W/0.45% NACL/KCL 20 MEQ 20 MEQ/1,000 ML BAG IV SCH (17:26)
[2018-08-15] MEDS: DILAUDID IV PRN (17:31)
--- NOTE | 2018-08-15 18:04 | Event Note ---
Date: 08/15/18 Post-op check. Pt thankful for our care. Reports that he has significant pain. The dilaudid helped a little. Nurse feels that COGNOS LEAD would be helpful. Will order COGNOS LEAD with loading dose. Continue routine care.
--- NOTE | 2018-08-15 19:00 | Operative Report ---
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 PROCEDURE: 1. Left hemicolectomy with primary anastomosis. 2. Splenic flexure mobilization. ATTENDING PHYSICIAN: Abhijeet Teixeira MD VICE PRESIDENT RISK MANAGEMENT: Dr. Cary. ANESTHESIA: General. ESTIMATED BLOOD LOSS: Approximately 100 mL. FLUIDS: 2 liters of crystalloid. URINE OUTPUT: 650 mL (no evidence of blood in the urine). SPECIMEN: Left colon and portion of omentum. DRAINS: None. COMPLICATIONS: None. DISPOSITION: Stable, transferred to Recovery. INDICATIONS: This is a 63-year-old male, who presented with abdominal distention and abdominal pain. Workup revealed a mechanical obstruction in the left colon. The patient was unable to have a colonoscopy for tissue biopsy. Based on the appearance there was concern for colon cancer as the patient had no other past medical history to suggest any other etiology. The patient assessed to need for left hemicolectomy. Procedure, risks, benefits were explained to the patient. Risks included but were not limited to infection, bleeding, pain, injury to surrounding structures, possible ostomy creation, possible need for further surgery in the future. The patient understood and consented. OPERATIVE NOTE: The patient was brought to the operating room and placed on the table in supine position. After adequate general anesthesia was established, the patient was prepped and draped in usual sterile fashion. Asif catheter was inserted. SCDs were in place. Preop antibiotics had been given. After timeout was called I made a midline incision. I entered the peritoneal cavity safely. Abdomen was inspected. We immediately identified the location of the obstruction, which was a very firm narrow mass in the left colon. There was no dense adhesion to the side wall or surrounding tissue. I did not see any signs of peritoneal implants. Spleen, stomach, liver, gallbladder all appeared normal. There was no visual or palpable abnormality. Gallbladder did not have any stones. The rest of the colon appeared normal by palpation and visually small bowel was run. I did not find any abnormalities there. Appendix was noted to be retrocecal and normal in appearance. Bookwalter retractor was set up. We packed the small bowel into the right lower quadrant and then examined the colon to decide upon how much we would resect. The patient had a very long redundant sigmoid colon. We figured this would be a good target site for the anastomosis. The planned resection would involve the left colon and the proximal division point ended up being about 9 cm away from the mass and the distal end was at least 20 cm away. We began by mobilizing the jejunum, which was adhered near the base of the omentum. We freed those adhesions. The patient was noted to have multiple adhesions between loops of colon as well as in various places along the sidewall, which was unusual. It was not really clear why he would have had those attachments or adhesions in those areas. However, we began by mobilizing the jejunum and then packed that small bowel away and then we took down the adhesions between the sigmoid and the left colon and then I proceeded to mobilize the left colon along the white line of Toldt. We did this under direct visualization and with electrocautery. Once we were close to the splenic flexure I then opened up the gastrocolic ligament and got into the lesser sac. We identified where the middle colic vessels were and then divided the colon just to the left of that to preserve the middle colic vessels. We used a 75 mm GI stapler with a blue load and divided the colon. Then from both hands both proximally and distally we approached the splenic flexure using a combination of blunt dissection and advanced bipolar device, which was the Voyant. We took down the attachments to the spleen. We did have a couple of areas of bleeding despite sealing that area twice with the Voyant device. These areas were then controlled with electrocautery. We were then able to mobilize the colon completely and there was no obvious damage to the spleen or the stomach and we dissected the mesentery bluntly towards the midline. We were in the right fascial plane such that the retroperitoneum was not disturbed at all. There were no tears or breaks in the retroperitoneum. Therefore, we were not concerned about any potential injury to the ureter. We were able to mobilize the omentum all the way to the midline. In palpating the mesentery, which ended up being surprisingly short. We identified its attachment all the way down to the retroperitoneum and then we divided this with the Voyant device. Again, we doubled field each time before we divided. We not able to identify the left colic artery; however, on CT scan prior to the start of the procedure, I was also not able to identify it, so I think the blood supply was coming from one of the other major vessels and the patient did not have the normal left colic artery or it was very small in its diameter, but in any case, neither Dr. Cary or I could feel a pulsation in that area. Once the mesentery was divided the specimen was passed off the table. We placed a stitch at the distal end to aixa that and we again checked where the staple ends were from the center of the tumor the proximal staple line was 9 cm away. The distal was at least 20. Specimens passed off table in sterile fashion. We examined the field again. There was no residual mesentery that we could take so as to make sure we had enough lymph nodes for evaluation. It appeared as though we got all the mesentery that was available to get. We washed out the abdomen, checked for hemostasis. Everything looked good. We then proceeded to line up the transverse colon and the remaining portion of sigmoid colon. It laid together very nicely. 6-0 silk stitch was used to hold the two limbs together. We cut portions of the staple line from each end so that we could slide the JOSE ANTONIO stapler with a blue load into each lumen. We made sure that the tinea of both were lined up and once we had made sure that there was no fat or anything in between the two limbs that might interfere with anastomosis we then fired. We had excellent hemostasis inside. We used the TA stapler to close the enterotomies that we had made, which was now one enterotomy and then we oversewed that staple line with interrupted 3-0 silk suture. Mesentery was also closed with 3-0 silk suture. We attached the mesentery to the scar tissue in the retroperitoneum to make sure that we did not have any opening left through which a small bowel could slip through. The new anastomosis was easily palpable and fairly wide. I was pleased with that. There was no tension on the anastomosis. We put an extra 3-0 silk stitch closer to the staple line crotch to minimize any excess pressure there. Once we had done that, we examined the abdomen again. We looked in the left upper quadrant to make sure there was no bleeding there. We had previously noted some bleeding from where the omentum had been attached and we divided it. We examined that area again. We saw no further evidence of bleeding. As a precaution, Jewel was placed all along the left upper quadrant and the left gutter to minimize any postoperative bleeding risk. We at this point had already irrigated the abdomen, so no further irrigation was necessary. We examined everything and then at that time we noticed that the patient had 2 masses in the pelvis. Upon further inspection, we came to the conclusion that these were bilateral undescended testicles. They appeared normal. At the end of the case, we checked the scrotum and indeed the patient did not have any testicles in the scrotum, therefore we think that had been undescended. We will discuss this with him once he recovers from the anesthesia. We examined the appendix as well. This was retrocecal. We discussed whether we should take it out at this time or not as this showed no signs of any abnormalities there. We felt it would be best not to do any further resections at this time for fear of leak and subsequent complication. I had already mentioned that the gallbladder was completely normal and had no stones; therefore, we did not consider removing that. At this point, we laid the omentum over the small bowel as well as the anastomosis and then we closed the fascia with a running #1 looped PDS suture and tied it at the superior end. We took care periodically to check the suture line to make sure nothing was caught in there. We had a malleable down against the bowel as we were closing the fascia. We then cleaned the subcutaneous tissue with saline irrigation. Hemostasis was achieved with electrocautery and skin was closed with ángel. Skin was cleaned and dried, dressings were placed. The patient tolerated procedure well. There were no complications. All counts were correct at the end of the case. JOB# [id number] COOPER/LOBITO QUEZADA
[2018-08-15] MEDS: DILAUDID PCA 6MG/30ML IV SCH (19:45)
[2018-08-16] MEDS: D5W/0.45% NACL/KCL 20 MEQ 20 MEQ/1,000 ML BAG IV SCH ×3 (00:39→21:16)
[2018-08-16 08:12] LABS: Basophils % (Auto) 0.3 % (0.0-1.8); Eosinophils % (Auto) 0.2 % (0.0-4.3); Hematocrit 34.1 % (35.5-45.6); Hemoglobin 11.7 gm/dl (11.8-15.2); Lymphocytes # (Auto) 0.9 K/mm3 (1.2-5.4); Lymphocytes % (Auto) 13.6 % (13.4-35.0); Mean Corpuscular HGB Conc 34 % (32-34); Mean Corpuscular Volume 85 fl (84-94); Monocytes # (Auto) 0.8 K/mm3 (0.0-0.8); Monocytes % (Auto) 12.8 % (0.0-7.3); Platelet Count 164 K/mm3 (140-440); Red Blood Count 3.99 M/mm3 (3.65-5.03); Red Cell Distribution Width 15.1 % (13.2-15.2)
[2018-08-16 08:27] LABS: BUN/Creatinine Ratio 12; Blood Urea Nitrogen 7 mg/dL (9-20); Calcium 7.2 mg/dL (8.4-10.2); Hemolysis Index 22
[2018-08-16] MEDS ORDERED: NACL 0.9% 1000 ML 1,000 ML IV ONE (12:26)
--- NOTE | 2018-08-16 12:43 | Progress Note ---
Assessment and Plan 63 yo M s/p exlap, left hemicolectomy, POD1 Plan: 1. NPO except ice chip and sips of water. If no n/v this pm, will start clear liquid diet for dinner 2. IVF 3. void trial 4. YARN WASHER for pain control 5. DVT ppx 6. OOB/ambulate 7. IS/pulm toilet 8. await path Thank you, please call with questions. Subjective Date of service: 08/16/18 Narrative: Pt seen and examined. No complaints. Pain is well controlled. NO f/c, cp, sob, n/v. No flatus or BM. Has not been OOB. Asif removed this am. Objective Vital Signs - 12hr 08/16/18 08/16/18 08/16/18 01:45 03:45 04:37 Temperature 98.9 F Pulse Rate 89 Respiratory 16 17 17 Rate Respiratory Rate [abd] Blood Pressure 90/54 Blood Pressure [Left] Blood Pressure [Right] O2 Sat by Pulse 97 Oximetry 08/16/18 08/16/18 08/16/18 04:44 05:45 06:35 Temperature 98.9 F Pulse Rate 90 78 Respiratory 17 17 17 Rate Respiratory Rate [abd] Blood Pressure 94/49 Blood Pressure 91/50 [Left] Blood Pressure 90/58 [Right] O2 Sat by Pulse 100 100 Oximetry 08/16/18 08/16/18 08/16/18 07:45 07:52 09:45 Temperature 98.2 F Pulse Rate 90 Respiratory 17 18 18 Rate Respiratory Rate [abd] Blood Pressure 94/60 Blood Pressure [Left] Blood Pressure [Right] O2 Sat by Pulse 100 Oximetry 08/16/18 08/16/18 10:00 11:46 Temperature 99.1 F Pulse Rate 91 H Respiratory 18 Rate Respiratory 16 Rate [abd] Blood Pressure 96/56 Blood Pressure [Left] Blood Pressure [Right] O2 Sat by Pulse 93 Oximetry - General physical appearance Narrative Exam: Gen: AAOx3. NAD CV: S1, S2+ Resp: even and unlabored Abd: soft, ND, mild incisional TTP. no r/r/g. Dressing c/d/i Ext: no c/c/e - Labs 08/16/18 07:50 08/16/18 07:50 Diabetes panel 08/16/18 Range/Units 07:50 Sodium 136 L (137-145) mmol/L Potassium 4.4 D (3.6-5.0) mmol/L Chloride 100.4 (98-107) mmol/L Carbon Dioxide 27 (22-30) mmol/L BUN 7 L (9-20) mg/dL Creatinine 0.6 L (0.8-1.5) mg/dL Glucose 138 H (75-100) mg/dL Calcium 7.2 L (8.4-10.2) mg/dL Calcium panel 08/16/18 Range/Units 07:50 Calcium 7.2 L (8.4-10.2) mg/dL Pituitary panel 08/16/18 Range/Units 07:50 Sodium 136 L (137-145) mmol/L Potassium 4.4 D (3.6-5.0) mmol/L Chloride 100.4 (98-107) mmol/L Carbon Dioxide 27 (22-30) mmol/L BUN 7 L (9-20) mg/dL Creatinine 0.6 L (0.8-1.5) mg/dL Glucose 138 H (75-100) mg/dL Calcium 7.2 L (8.4-10.2) mg/dL Adrenal panel 08/16/18 Range/Units 07:50 Sodium 136 L (137-145) mmol/L Potassium 4.4 D (3.6-5.0) mmol/L Chloride 100.4 (98-107) mmol/L Carbon Dioxide 27 (22-30) mmol/L BUN 7 L (9-20) mg/dL Creatinine 0.6 L (0.8-1.5) mg/dL Glucose 138 H (75-100) mg/dL Calcium 7.2 L (8.4-10.2) mg/dL
[2018-08-16] MEDS: DILAUDID PCA 6MG/30ML IV SCH (13:17)
--- NOTE | 2018-08-16 15:22 | Progress Note ---
Assessment and Plan Abdominal pain with n/v - Intestinal obstruction - likely due to an obstructing lesion in the left colon. - monitor at surgical unit, surgery following with patient, s/p left hemicolectomy yesterday - keep NPO, cont supportive care with iv fluid, pain control - DVt Px, monitor and replete electrolytes as needed CT abdomen/pelvis: Abnormal area of lumen narrowing in the descending colon as described. A stricture appears to be present. Inflammatory and malignant stricture could both present this manner. Moderate obstruction is seen at this site. No free air or ascites is visualized. Possible small hiatal hernia. Nonspecific diffuse prostate enlargement. Subjective Date of service: 08/16/18 Principal diagnosis: large bowel obstruction Interval history: Patient seen and examined no acute event, POD #`1 doing well, on PSYCH TECH pump Objective - Exam Narrative Exam: General appearance: Present: no distress - EENT Eyes: Present: PERRL ENT: hearing intact, clear oral mucosa - Neck Neck: Present: supple, normal ROM - Respiratory Respiratory effort: normal Respiratory: bilateral: CTA - Cardiovascular Heart Sounds: Present: S1 & S2. Absent: rub, click - Extremities Extremities: pulses symmetrical, No edema Peripheral Pulses: within normal limits - Abdominal General gastrointestinal: Present: no bowel sounds, - Integumentary Integumentary: Present: clear, warm, dry - Musculoskeletal Musculoskeletal: gait normal, strength equal bilaterally - Psychiatric Psychiatric: appropriate mood/affect, intact judgment & insight - Neurologic Neurologic: CNII-XII intact, moves all extremities - Constitutional Vitals: Vital Signs - 12hr 08/16/18 08/16/18 08/16/18 03:45 04:37 04:44 Temperature 98.9 F 98.9 F Pulse Rate 89 90 Respiratory 17 17 17 Rate Respiratory Rate [abd] Blood Pressure 90/54 94/49 Blood Pressure [Left] Blood Pressure [Right] O2 Sat by Pulse 97 100 Oximetry 08/16/18 08/16/18 08/16/18 05:45 06:35 07:45 Temperature Pulse Rate 78 Respiratory 17 17 17 Rate Respiratory Rate [abd] Blood Pressure Blood Pressure 91/50 [Left] Blood Pressure 90/58 [Right] O2 Sat by Pulse 100 Oximetry 08/16/18 08/16/18 08/16/18 07:52 09:45 10:00 Temperature 98.2 F Pulse Rate 90 Respiratory 18 18 Rate Respiratory 16 Rate [abd] Blood Pressure 94/60 Blood Pressure [Left] Blood Pressure [Right] O2 Sat by Pulse 100 Oximetry 08/16/18 08/16/18 08/16/18 11:45 11:46 13:45 Temperature 99.1 F Pulse Rate 91 H Respiratory 18 18 18 Rate Respiratory Rate [abd] Blood Pressure 96/56 Blood Pressure [Left] Blood Pressure [Right] O2 Sat by Pulse 93 Oximetry - Labs CBC & Chem 7: 08/16/18 07:50 08/16/18 07:50 Labs: Abnormal lab results 08/16/18 08/16/18 Range/Units 07:50 07:50 Hgb 11.7 L (11.8-15.2) gm/dl Hct 34.1 L (35.5-45.6) % Richardson % (Auto) 12.8 H (0.0-7.3) % Lymph # 0.9 L (1.2-5.4) K/mm3 Seg Neutrophils % 73.1 H (40.0-70.0) % Sodium 136 L (137-145) mmol/L BUN 7 L (9-20) mg/dL Creatinine 0.6 L (0.8-1.5) mg/dL Glucose 138 H (75-100) mg/dL Calcium 7.2 L (8.4-10.2) mg/dL
[2018-08-16] MEDS: LOVENOX SUB-Q SCH (21:16)
[2018-08-17] MEDS: DILAUDID PCA 6MG/30ML IV SCH (03:51)
[2018-08-17] MEDS: D5W/0.45% NACL/KCL 20 MEQ 20 MEQ/1,000 ML BAG IV SCH ×2 (06:18→18:17)
[2018-08-17] MEDS ORDERED: TYLENOL PO ONE (10:13)
[2018-08-17] MEDS ORDERED: ZOFRAN IV ONE (10:13)
[2018-08-17] MEDS ORDERED: ZOFRAN IV PRN (10:14)
--- NOTE | 2018-08-17 11:17 | Progress Note ---
Assessment and Plan 63 yo M s/p exlap, left hemicolectomy, POD2 Plan: 1. NPO except ice chips. Will not advance diet 2. IVF 3. CLIENT SOLUTIONS SPECIALIST for pain control 4. DVT ppx 5. OOB/ambulate - I explained to the patient the importance of being OOB today. He needs to be up in a chair today 6. IS/pulm toilet - encouraged 7. await path 8. prn nausea control - will give additional dose of zofran now 9. tylenol for low grade temp - likely secondary to atelectasis 10. BMP, Mg, Phos today Thank you, please call with questions. Subjective Date of service: 08/17/18 Narrative: Pt seen and examined. States he started feeling unwell last night when his IV stopped working and he was not getting fluids or able to get pain medication. IV was replaced but infiltrated shortly after. He feels better now that the IV was replaced again and he was able to get pain medications. He had multiple episodes of emesis overnight which he describes as mucous. He attempted to walk yesterday but states his right leg gave out on him and feels "". He has not been OOB since. He is urinating. Tm 99.7. He is not using incentive spirometry often. No flatus or BM Objective Vital Signs - 12hr 08/16/18 08/16/18 08/16/18 23:17 23:42 23:43 Temperature 100.5 F H Pulse Rate 104 H 106 H Respiratory 18 18 Rate Blood Pressure 121/68 Blood Pressure [Right] O2 Sat by Pulse 96 95 Oximetry 08/17/18 08/17/18 08/17/18 01:17 04:35 05:18 Temperature 99.7 F H Pulse Rate 91 H 95 H Respiratory 18 20 Rate Blood Pressure Blood Pressure 124/68 [Right] O2 Sat by Pulse 96 95 Oximetry 08/17/18 08/17/18 05:51 07:04 Temperature 98.6 F Pulse Rate 90 Respiratory 18 18 Rate Blood Pressure 107/61 Blood Pressure [Right] O2 Sat by Pulse 95 Oximetry - General physical appearance Narrative Exam: Gen: AAOx3. appears flushed ENT: no scleral icterus or conjunctival pallor CV: s1, s2+ Resp: even and unlabored. poor inspiratory effort - <500cc on IS Abd: soft, distended, mild incisional TTP. Dressing removed, incision c/d/i Ext; no c/c/e. 5/5/ strength in right leg and sensation intact, full independent ROM - Labs 08/16/18 07:50 08/16/18 07:50
[2018-08-17 12:12] LABS: BUN/Creatinine Ratio 14; Blood Urea Nitrogen 7 mg/dL (9-20); Calcium 7.9 mg/dL (8.4-10.2)
[2018-08-17 12:13] LABS: Hemolysis Index 5
[2018-08-17] MEDS ORDERED: NACL 0.9% 1000 ML 1,000 ML IV ONE (13:00)
--- NOTE | 2018-08-17 15:10 | Progress Note ---
Assessment and Plan Abdominal pain with n/v - Intestinal obstruction - likely due to an obstructing lesion in the left colon. - monitor at surgical unit, surgery following with patient, s/p left hemicolectomy on 08/15/18 - keep NPO, cont supportive care with iv fluid, pain control, PT eval for ambulation - DVt Px, monitor and replete electrolytes as needed CT abdomen/pelvis: Abnormal area of lumen narrowing in the descending colon as described. A strictu re appears to be present. Inflammatory and malignant stricture could both present this manner. Moderate obstruction is seen at this site. No free air or ascites is visualized. Possible small hiatal hernia. Nonspecific diffuse prostate enlargement. Subjective Date of service: 08/17/18 Principal diagnosis: large bowel obstruction Interval history: Patient seen and examined no acute event, POD #`2 doing well, on WATER REUSE PROGRAM MANAGER pump, PT consulted Objective - Exam Narrative Exam: General appearance: Present: no distress - EENT Eyes: Present: PERRL ENT: hearing intact, clear oral mucosa - Neck Neck: Present: supple, normal ROM - Respiratory Respiratory effort: normal Respiratory: bilateral: CTA - Cardiovascular Heart Sounds: Present: S1 & S2. Absent: rub, click - Extremities Extremities: pulses symmetrical, No edema Peripheral Pulses: within normal limits - Abdominal General gastrointestinal: Present: no bowel sounds, - Integumentary Integumentary: Present: clear, warm, dry - Musculoskeletal Musculoskeletal: gait normal, strength equal bilaterally - Psychiatric Psychiatric: appropriate mood/affect, intact judgment & insight - Neurologic Neurologic: CNII-XII intact, moves all extremities - Constitutional Vitals: Vital Signs - 12hr 08/17/18 08/17/18 08/17/18 04:35 05:18 05:51 Temperature 99.7 F H Pulse Rate 91 H 95 H Respiratory 20 18 Rate Blood Pressure Blood Pressure 124/68 [Right] O2 Sat by Pulse 96 95 Oximetry 08/17/18 08/17/18 07:04 11:13 Temperature 98.6 F 98.0 F Pulse Rate 90 86 Respiratory 18 20 Rate Blood Pressure 107/61 121/71 Blood Pressure [Right] O2 Sat by Pulse 95 95 Oximetry - Labs CBC & Chem 7: 08/16/18 07:50 08/18/18 05:49 Labs: Abnormal lab results 08/17/18 Range/Units 11:36 Sodium 132 L (137-145) mmol/L Chloride 94.6 L (98-107) mmol/L BUN 7 L (9-20) mg/dL Creatinine 0.5 L (0.8-1.5) mg/dL Glucose 164 H (75-100) mg/dL Calcium 7.9 L (8.4-10.2) mg/dL
[2018-08-18] MEDS: LOVENOX SUB-Q SCH ×2 (02:49→21:18)
[2018-08-18 06:24] LABS: BUN/Creatinine Ratio 13; Blood Urea Nitrogen 8 mg/dL (9-20); Calcium 7.9 mg/dL (8.4-10.2); Hemolysis Index 5
--- NOTE | 2018-08-18 08:39 | Progress Note ---
Assessment and Plan - Patient Problems (1) Large bowel obstruction Current Visit: Yes Status: Acute Plan to address problem: Pt stable. s/p left hemicolectomy with primary anastomosis - 08/15/18 - POD#3. Pt had issues with IV problems, pain control, and vomiting over the weekend. All better now. Need to work on ambulation. There is no objective evidence of neuro problem with lower extremities. Needs to at least get OOB to chair today. IS effort is very poor. Instructed on proper technique and goal for today. Bilious fluid in NGT is expected with prolonged obstruction that he had. Pt is clinically dry. Will hydrate and replace Ca. 1) OOB to chair 2) IS 3) hydrate 4) Cont NGT. Please call with questions. time=10min Subjective Date of service: 08/18/18 Patient Reports: Positive: feels better, pain is less, no flatus, no bowel movement. Negative: nausea, vomiting Objective Vital Signs - 12hr 08/17/18 08/17/18 08/17/18 21:17 21:51 23:17 Temperature Pulse Rate Respiratory 18 18 18 Rate Blood Pressure O2 Sat by Pulse Oximetry 08/17/18 08/18/18 08/18/18 23:51 00:20 01:17 Temperature 98.8 F Pulse Rate 103 H Respiratory 18 17 18 Rate Blood Pressure 121/69 O2 Sat by Pulse 97 Oximetry 08/18/18 08/18/18 08/18/18 01:51 03:17 03:51 Temperature Pulse Rate Respiratory 18 18 18 Rate Blood Pressure O2 Sat by Pulse Oximetry 08/18/18 08/18/18 08/18/18 04:07 05:17 06:47 Temperature 98.2 F 98.2 F Pulse Rate 92 H 90 Respiratory 17 18 20 Rate Blood Pressure 122/76 105/75 O2 Sat by Pulse 97 98 Oximetry - General physical appearance no distress, no pain, other (has apprehensive look) - Eyes normal occular movement - Respiratory normal expansion, normal respiratory effort, other (poor IS effort.) - Abdomen soft, not tender, bowel sounds hypoactive, distended (mild), not guarding, not rigid, surgical scars (C/D/I) - Integumentary no rash, no growths, no abnormal pigmentation - Neurologic normal coordination, normal sensation (no evidence of decreased sensation) - Psychiatric oriented to time, oriented to person, oriented to place, speech is normal, memory intact - Labs 08/16/18 07:50 08/18/18 05:49 Diabetes panel 08/17/18 08/18/18 Range/Units 11:36 05:49 Sodium 132 L 135 L (137-145) mmol/L Potassium 3.7 3.5 L (3.6-5.0) mmol/L Chloride 94.6 L 93.5 L (98-107) mmol/L Carbon Dioxide 27 30 (22-30) mmol/L BUN 7 L 8 L (9-20) mg/dL Creatinine 0.5 L 0.6 L (0.8-1.5) mg/dL Glucose 164 H 146 H (75-100) mg/dL Calcium 7.9 L 7.9 L (8.4-10.2) mg/dL Calcium panel 08/17/18 08/18/18 Range/Units 11:36 05:49 Calcium 7.9 L 7.9 L (8.4-10.2) mg/dL Phosphorus 2.90 2.50 (2.5-4.5) mg/dL Pituitary panel 08/17/18 08/18/18 Range/Units 11:36 05:49 Sodium 132 L 135 L (137-145) mmol/L Potassium 3.7 3.5 L (3.6-5.0) mmol/L Chloride 94.6 L 93.5 L (98-107) mmol/L Carbon Dioxide 27 30 (22-30) mmol/L BUN 7 L 8 L (9-20) mg/dL Creatinine 0.5 L 0.6 L (0.8-1.5) mg/dL Glucose 164 H 146 H (75-100) mg/dL Calcium 7.9 L 7.9 L (8.4-10.2) mg/dL Adrenal panel 08/17/18 08/18/18 Range/Units 11:36 05:49 Sodium 132 L 135 L (137-145) mmol/L Potassium 3.7 3.5 L (3.6-5.0) mmol/L Chloride 94.6 L 93.5 L (98-107) mmol/L Carbon Dioxide 27 30 (22-30) mmol/L BUN 7 L 8 L (9-20) mg/dL Creatinine 0.5 L 0.6 L (0.8-1.5) mg/dL Glucose 164 H 146 H (75-100) mg/dL Calcium 7.9 L 7.9 L (8.4-10.2) mg/dL
[2018-08-18] MEDS ORDERED: CALCIUM GLUCONATE 2,000 MG in NACL 0.9% 100 ML IV ONE (08:40)
[2018-08-18] MEDS: NACL 0.9% 1000 ML 1,000 ML IV SCH ×2 (11:42→14:43)
[2018-08-18] MEDS: D5W/0.45% NACL/KCL 20 MEQ 20 MEQ/1,000 ML BAG IV SCH (14:30)
--- NOTE | 2018-08-18 14:31 | Progress Note ---
Assessment and Plan Abdominal pain with n/v - Intestinal obstruction - likely due to an obstructing lesion in the left colon. - monitor at surgical unit, surgery following with patient, s/p left hemicolectomy on 08/15/18 - keep NPO, cont supportive care with iv fluid, pain control, PT eval for ambulation, cont NG suction - DVt Px, monitor and replete electrolytes as needed CT abdomen/pelvis: Abnormal area of lumen narrowing in the descending colon as described. A stricture appears to be present. Inflammatory and malignant stricture could both present this manner. Moderate obstruction is seen at this site. No free air or ascites is visualized. Possible small hiatal hernia. Nonspecific diffuse prostate enlargement. Brief History: 63-year-old male w/o any PMH presented to the emergency room with complaints of abdominal pain, CT abdomen showed a large bowel obstruction however he refused admission to the hospital. but Patient came back in 2 dys with worsening abdominal distention along with N/V, GS consulted, s/p s/p left hemicolectomy on 08/15/18 . Biopsy result pending. Subjective Date of service: 08/18/18 Principal diagnosis: large bowel obstruction Interval history: Patient seen and examined no acute event, POD #`3 doing well, on SUPPORT TEACHER pump, PT consulted On NG suction Objective - Exam Narrative Exam: General appearance: Present: no distress - EENT Eyes: Present: PERRL ENT: hearing intact, clear oral mucosa - Neck Neck: Present: supple, normal ROM - Respiratory Respiratory effort: normal Respiratory: bilateral: CTA - Cardiovascular Heart Sounds: Present: S1 & S2. Absent: rub, click - Extremities Extremities: pulses symmetrical, No edema Peripheral Pulses: within normal limits - Abdominal General gastrointestinal: Present: no bowel sounds, - Integumentary Integumentary: Present: clear, warm, dry - Musculoskeletal Musculoskeletal: gait normal, strength equal bilaterally - Psychiatric Psychiatric: appropriate mood/affect, intact judgment & insight - Neurologic Neurologic: CNII-XII intact, moves all extremities - Constitutional Vitals: Vital Signs - 12hr 08/18/18 08/18/18 08/18/18 03:17 03:51 04:07 Temperature 98.2 F Pulse Rate 92 H Respiratory 18 18 17 Rate Blood Pressure 122/76 O2 Sat by Pulse 97 Oximetry 08/18/18 08/18/18 05:17 06:47 Temperature 98.2 F Pulse Rate 90 Respiratory 18 20 Rate Blood Pressure 105/75 O2 Sat by Pulse 98 Oximetry - Labs CBC & Chem 7: 08/16/18 07:50 08/18/18 05:49 Labs: Abnormal lab results 08/18/18 Range/Units 05:49 Sodium 135 L (137-145) mmol/L Potassium 3.5 L (3.6-5.0) mmol/L Chloride 93.5 L (98-107) mmol/L BUN 8 L (9-20) mg/dL Creatinine 0.6 L (0.8-1.5) mg/dL Glucose 146 H (75-100) mg/dL Calcium 7.9 L (8.4-10.2) mg/dL
[2018-08-18] MEDS: TORADOL IV SCH ×2 (16:28→23:25)
[2018-08-18] MEDS: DILAUDID PCA 6MG/30ML IV SCH (17:31)
[2018-08-19 05:51] LABS: Basophils % (Auto) 0.5 % (0.0-1.8); Eosinophils # (Auto) 0.1 K/mm3 (0.0-0.4); Eosinophils % (Auto) 1.2 % (0.0-4.3); Hematocrit 29.2 % (35.5-45.6); Hemoglobin 9.9 gm/dl (11.8-15.2); Lymphocytes # (Auto) 0.6 K/mm3 (1.2-5.4); Lymphocytes % (Auto) 11.5 % (13.4-35.0); Mean Corpuscular HGB Conc 34 % (32-34); Mean Corpuscular Volume 85 fl (84-94); Monocytes # (Auto) 0.8 K/mm3 (0.0-0.8); Monocytes % (Auto) 15.3 % (0.0-7.3); Platelet Count 204 K/mm3 (140-440); Red Blood Count 3.42 M/mm3 (3.65-5.03); Red Cell Distribution Width 14.8 % (13.2-15.2)
[2018-08-19 06:18] LABS: BUN/Creatinine Ratio 14; Blood Urea Nitrogen 7 mg/dL (9-20); Calcium 7.6 mg/dL (8.4-10.2); Hemolysis Index 1
[2018-08-19] MEDS: TORADOL IV SCH ×4 (06:26→23:18)
[2018-08-19] MEDS ORDERED: CALCIUM GLUCONATE 2,000 MG in NACL 0.9% 100 ML IV ONE (09:30)
[2018-08-19] MEDS ORDERED: HURRICAINE ONE 20% TOPICAL SPRAY MM NR (09:30)
[2018-08-19] MEDS ORDERED: LIDOCAINE VISCOUS 2% MM ONE (09:30)
[2018-08-19] MEDS ORDERED: LIDOCAINE VISCOUS 2% PO ONE (09:30)
--- NOTE | 2018-08-19 09:54 | Progress Note ---
Assessment and Plan - Patient Problems (1) Large bowel obstruction Current Visit: Yes Status: Acute Plan to address problem: Pt stable. s/p left hemicolectomy with primary anastomosis - 08/15/18 - POD#4. Pt looks better today Weakness - able to ambulate in hallway with assistance. No obvious neuro deficit. Work with PT NGT - accidental removal last night. As patient is asymptomatic now and nose is hurting, will replace only if patient becomes symptomatic. Dehydration - improved. Still with dark urine and some dry mouth. Will give another 1L bolus Anemia - part acute blood loss and part dilutional. VS are completely stable. Doubt active bleed. Will recheck in AM. Atelectasis - re-educated on appropriate IS technique. Must do frequently. Hypocalcemia - replace again today. May shower. Please call with questions. time=10min Subjective Date of service: 08/19/18 Patient Reports: Positive: feels better, pain is less, no flatus, no bowel movement, other (Feel better. Was sitting up with family yesterday. NGT came out o/n. Multiple attempts made to replace. ). Negative: nausea, vomiting Objective Vital Signs - 12hr 08/18/18 08/18/18 08/18/18 22:00 23:25 23:50 Temperature 99.1 F Pulse Rate 87 Respiratory 17 17 17 Rate Blood Pressure 121/58 Blood Pressure [Right] O2 Sat by Pulse 98 98 Oximetry 08/19/18 08/19/18 08/19/18 04:17 05:26 06:26 Temperature 98.5 F 97.8 F Pulse Rate 85 80 Respiratory 17 17 16 Rate Blood Pressure 115/69 112/66 Blood Pressure [Right] O2 Sat by Pulse 98 97 Oximetry 08/19/18 07:08 Temperature 98.1 F Pulse Rate 71 Respiratory 18 Rate Blood Pressure Blood Pressure 110/60 [Right] O2 Sat by Pulse 99 Oximetry - General physical appearance no distress, no pain, other (looks better today) - Eyes normal occular movement - Respiratory normal expansion, normal respiratory effort, other (still poor IS effort. ) - Abdomen soft, not tender, bowel sounds hypoactive (improved BS), distended, not guarding, not rigid, surgical scars (C/D/I) - Integumentary no rash, no growths, no abnormal pigmentation - Musculoskeletal other (ambulated in hallway with periodic support due to intermittent weakness) - Psychiatric oriented to time, oriented to person, oriented to place, speech is normal, memory intact - Labs 08/19/18 05:21 08/19/18 05:21 Diabetes panel 08/19/18 Range/Units 05:21 Sodium 138 (137-145) mmol/L Potassium 3.5 L (3.6-5.0) mmol/L Chloride 100.0 (98-107) mmol/L Carbon Dioxide 28 (22-30) mmol/L BUN 7 L (9-20) mg/dL Creatinine 0.5 L (0.8-1.5) mg/dL Glucose 130 H (75-100) mg/dL Calcium 7.6 L (8.4-10.2) mg/dL Calcium panel 08/19/18 Range/Units 05:21 Calcium 7.6 L (8.4-10.2) mg/dL Pituitary panel 08/19/18 Range/Units 05:21 Sodium 138 (137-145) mmol/L Potassium 3.5 L (3.6-5.0) mmol/L Chloride 100.0 (98-107) mmol/L Carbon Dioxide 28 (22-30) mmol/L BUN 7 L (9-20) mg/dL Creatinine 0.5 L (0.8-1.5) mg/dL Glucose 130 H (75-100) mg/dL Calcium 7.6 L (8.4-10.2) mg/dL Adrenal panel 08/19/18 Range/Units 05:21 Sodium 138 (137-145) mmol/L Potassium 3.5 L (3.6-5.0) mmol/L Chloride 100.0 (98-107) mmol/L Carbon Dioxide 28 (22-30) mmol/L BUN 7 L (9-20) mg/dL Creatinine 0.5 L (0.8-1.5) mg/dL Glucose 130 H (75-100) mg/dL Calcium 7.6 L (8.4-10.2) mg/dL
[2018-08-19] MEDS ORDERED: NACL 0.9% 1000 ML 1,000 ML IV ONE (10:00)
--- NOTE | 2018-08-19 11:04 | Progress Note ---
Assessment and Plan Assessment and plan: 63-year-old male w/o any PMH presented to the emergency room with complaints of abdominal pain, CT abdomen showed a large bowel obstruction however he refused admission to the hospital. but Patient came back in 2 dys with worsening abdominal distention along with N/V, GS consulted, s/p s/p left hemicolectomy on 08/15/18 . Biopsy result pending. --Abdominal pain with n/v -Large Bowel obstruction s/p Open left hemicolectomy with primary anastomosis 08/15/18 and splenic flexure mobilization Continue postop care, nothing by mouth status, PT as tolerated --Hypokalemia; replace per protocol and monitor levels --DVt prophylaxis, SCDs, ambulate as tolerated Surgery recommendations noted and appreciated. Continue current management Plan of care is reviewed with the patient and his nurse Possible discharge in 1-2 days if stable History Interval history: Patient seen and examined medical records reviewed The patient feels slightly better no new complaints Did not have flatus, no bowel movement Mild nausea no vomiting Patient is sitting in the chair is alert awake oriented 3 Vital signs reviewed Hospitalist Physical - Constitutional Vitals: Temp Pulse Resp BP Pulse Ox 98.1 F 71 18 110/60 99 08/19/18 07:08 08/19/18 07:08 08/19/18 07:08 08/19/18 07:08 08/19/18 07:08 General appearance: Present: no acute distress, well-nourished - EENT Eyes: Present: PERRL, EOM intact - Neck Neck: Present: supple, normal ROM - Respiratory Respiratory effort: normal Respiratory: bilateral: diminished, negative: rales, rhonchi, wheezing - Cardiovascular Rhythm: regular Heart Sounds: Present: S1 & S2 - Extremities Extremities: no ischemia, No edema - Abdominal General gastrointestinal: soft, non-tender, non-distended, normal bowel sounds - Integumentary Integumentary: Present: clear, warm - Psychiatric Psychiatric: appropriate mood/affect, cooperative - Neurologic Neurologic: moves all extremities Results - Labs CBC & Chem 7: 08/19/18 05:21 08/19/18 05:21 Labs: Laboratory Last Values WBC 4.9 K/mm3 (4.5-11.0) 08/19/18 05:21 RBC 3.42 M/mm3 (3.65-5.03) L 08/19/18 05:21 Hgb 9.9 gm/dl (11.8-15.2) L 08/19/18 05:21 Hct 29.2 % (35.5-45.6) L 08/19/18 05:21 MCV 85 fl (84-94) 08/19/18 05:21 MCH 29 pg (28-32) 08/19/18 05:21 MCHC 34 % (32-34) 08/19/18 05:21 RDW 14.8 % (13.2-15.2) 08/19/18 05:21 Plt Count 204 K/mm3 (140-440) 08/19/18 05:21 Lymph % (Auto) 11.5 % (13.4-35.0) L 08/19/18 05:21 Grand % (Auto) 15.3 % (0.0-7.3) H 08/19/18 05:21 Eos % (Auto) 1.2 % (0.0-4.3) 08/19/18 05:21 Baso % (Auto) 0.5 % (0.0-1.8) 08/19/18 05:21 Lymph # 0.6 K/mm3 (1.2-5.4) L 08/19/18 05:21 Grand # 0.8 K/mm3 (0.0-0.8) 08/19/18 05:21 Eos # 0.1 K/mm3 (0.0-0.4) 08/19/18 05:21 Baso # 0.0 K/mm3 (0.0-0.1) 08/19/18 05:21 Add Manual Diff Complete 08/15/18 05:18 Total Counted 100 08/15/18 05:18 Seg Neutrophils % 71.5 % (40.0-70.0) H 08/19/18 05:21 Seg Neuts % (Manual) 58.0 % (40.0-70.0) 08/15/18 05:18 Band Neutrophils % 6.0 % 08/15/18 05:18 Lymphocytes % (Manual) 19.0 % (13.4-35.0) 08/15/18 05:18 Reactive Lymphs % (Man) 0 % 08/15/18 05:18 Monocytes % (Manual) 13.0 % (0.0-7.3) H 08/15/18 05:18 Eosinophils % (Manual) 4.0 % (0.0-4.3) 08/15/18 05:18 Basophils % (Manual) 0 % (0.0-1.8) 08/15/18 05:18 Metamyelocytes % 0 % 08/15/18 05:18 Myelocytes % 0 % 08/15/18 05:18 Promyelocytes % 0 % 08/15/18 05:18 Blast Cells % 0 % 08/15/18 05:18 Nucleated RBC % Not Reportable 08/15/18 05:18 Seg Neutrophils # 3.5 K/mm3 (1.8-7.7) 08/19/18 05:21 Seg Neutrophils # Man 1.9 K/mm3 (1.8-7.7) 08/15/18 05:18 Band Neutrophils # 0.2 K/mm3 08/15/18 05:18 Lymphocytes # (Manual) 0.6 K/mm3 (1.2-5.4) L 08/15/18 05:18 Abs React Lymphs (Man) 0.0 K/mm3 08/15/18 05:18 Monocytes # (Manual) 0.4 K/mm3 (0.0-0.8) 08/15/18 05:18 Eosinophils # (Manual) 0.1 K/mm3 (0.0-0.4) 08/15/18 05:18 Basophils # (Manual) 0.0 K/mm3 (0.0-0.1) 08/15/18 05:18 Metamyelocytes # 0.0 K/mm3 08/15/18 05:18 Myelocytes # 0.0 K/mm3 08/15/18 05:18 Promyelocytes # 0.0 K/mm3 08/15/18 05:18 Blast Cells # 0.0 K/mm3 08/15/18 05:18 WBC Morphology Not Reportable 08/15/18 05:18 Hypersegmented Neuts Not Reportable 08/15/18 05:18 Hyposegmented Neuts Not Reportable 08/15/18 05:18 Hypogranular Neuts Not Reportable 08/15/18 05:18 Smudge Cells Not Reportable 08/15/18 05:18 Toxic Granulation Not Reportable 08/15/18 05:18 Toxic Vacuolation Not Reportable 08/15/18 05:18 Dohle Bodies Not Reportable 08/15/18 05:18 Pelger-Huet Anomaly Not Reportable 08/15/18 05:18 Emy Rods Not Reportable 08/15/18 05:18 Platelet Estimate Consistent w auto 08/15/18 05:18 Clumped Platelets Not Reportable 08/15/18 05:18 Plt Clumps, EDTA Not Reportable 08/15/18 05:18 Large Platelets Not Reportable 08/15/18 05:18 Giant Platelets Not Reportable 08/15/18 05:18 Platelet Satelliting Not Reportable 08/15/18 05:18 Plt Morphology Comment Not Reportable 08/15/18 05:18 RBC Morphology Not Reportable 08/15/18 05:18 Dimorphic RBCs Not Reportable 08/15/18 05:18 Polychromasia Not Reportable 08/15/18 05:18 Hypochromasia Not Reportable 08/15/18 05:18 Poikilocytosis Not Reportable 08/15/18 05:18 Anisocytosis Few 08/15/18 05:18 Microcytosis Not Reportable 08/15/18 05:18 Macrocytosis Not Reportable 08/15/18 05:18 Spherocytes Not Reportable 08/15/18 05:18 Pappenheimer Bodies Not Reportable 08/15/18 05:18 Sickle Cells Not Reportable 08/15/18 05:18 Target Cells Not Reportable 08/15/18 05:18 Tear Drop Cells Not Reportable 08/15/18 05:18 Ovalocytes Rare 08/15/18 05:18 Helmet Cells Not Reportable 08/15/18 05:18 [place] Bodies Not Reportable 08/15/18 05:18 [place] Rings Not Reportable 08/15/18 05:18 Mariusz Cells Not Reportable 08/15/18 05:18 Bite Cells Not Reportable 08/15/18 05:18 Crenated Cell Not Reportable 08/15/18 05:18 Elliptocytes Not Reportable 08/15/18 05:18 Acanthocytes (Spur) Not Reportable 08/15/18 05:18 Rouleaux Not Reportable 08/15/18 05:18 Hemoglobin C Crystals Not Reportable 08/15/18 05:18 Schistocytes Not Reportable 08/15/18 05:18 Malaria parasites Not Reportable 08/15/18 05:18 Dannie Bodies Not Reportable 08/15/18 05:18 Hem Pathologist Commnt No 08/15/18 05:18 Sodium 138 mmol/L (137-145) 08/19/18 05:21 Potassium 3.5 mmol/L (3.6-5.0) L 08/19/18 05:21 Chloride 100.0 mmol/L (98-107) 08/19/18 05:21 Carbon Dioxide 28 mmol/L (22-30) 08/19/18 05:21 Anion Gap 14 mmol/L 08/19/18 05:21 BUN 7 mg/dL (9-20) L 08/19/18 05:21 Creatinine 0.5 mg/dL (0.8-1.5) L 08/19/18 05:21 Estimated GFR > 60 ml/min 08/19/18 05:21 BUN/Creatinine Ratio 14 % 08/19/18 05:21 Glucose 130 mg/dL (75-100) H 08/19/18 05:21 Lactic Acid 0.70 mmol/L (0.7-2.0) 08/13/18 07:32 Calcium 7.6 mg/dL (8.4-10.2) L 08/19/18 05:21 Phosphorus 2.50 mg/dL (2.5-4.5) 08/18/18 05:49 Magnesium 1.80 mg/dL (1.7-2.3) 08/18/18 05:49 Total Bilirubin 0.70 mg/dL (0.1-1.2) 08/13/18 06:09 AST 18 units/L (5-40) 08/13/18 06:09 ALT 12 units/L (7-56) 08/13/18 06:09 Alkaline Phosphatase 52 units/L (35-129) 08/13/18 06:09 Total Protein 6.7 g/dL (6.3-8.2) 08/13/18 06:09 Albumin 3.9 g/dL (3.9-5) 08/13/18 06:09 Albumin/Globulin Ratio 1.4 % 08/13/18 06:09 Lipase 12 units/L (13-60) L 01/09/19 06:09 Urine Color Velia (Yellow) 08/13/18 Unknown Urine Turbidity Hazy (Clear) 08/13/18 Unknown Urine pH 5.0 (5.0-7.0) 08/13/18 Unknown Ur Specific [place] 1.036 (1.003-1.030) H 08/13/18 Unknown Urine Protein 30 mg/dl mg/dL (Negative) 08/13/18 Unknown Urine Glucose (UA) Neg mg/dL (Negative) 08/13/18 Unknown Urine Ketones 80 mg/dL (Negative) 08/13/18 Unknown Urine Blood Mod (Negative) 08/13/18 Unknown Urine Nitrite Neg (Negative) 08/13/18 Unknown Urine Bilirubin Neg (Negative) 08/13/18 Unknown Urine Urobilinogen 4.0 mg/dL (<2.0) 08/13/18 Unknown Ur Leukocyte Esterase Neg (Negative) 08/13/18 Unknown Urine WBC (Auto) 3.0 /HPF (0.0-6.0) 08/13/18 Unknown Urine RBC (Auto) 28.0 /HPF (0.0-6.0) 08/13/18 Unknown U Epithel Cells (Auto) < 1.0 /HPF (0-13.0) 08/13/18 Unknown Urine Mucus 3+ /HPF 08/13/18 Unknown
[2018-08-19] MEDS: LOVENOX SUB-Q SCH (21:38)
[2018-08-19] MEDS: D5W/0.45% NACL/KCL 20 MEQ 20 MEQ/1,000 ML BAG IV SCH (23:18)
[2018-08-20] MEDS: TORADOL IV SCH ×4 (05:40→18:02)
[2018-08-20 09:03] LABS: Hemoglobin 10.7 gm/dl (11.8-15.2)
[2018-08-20 09:41] LABS: BUN/Creatinine Ratio 15; Blood Urea Nitrogen 6 mg/dL (9-20); Calcium 8.2 mg/dL (8.4-10.2); Hemolysis Index 2
--- NOTE | 2018-08-20 11:50 | Progress Note ---
Assessment and Plan - Patient Problems (1) Large bowel obstruction Current Visit: Yes Status: Acute Plan to address problem: Pt stable. s/p left hemicolectomy with primary anastomosis - 08/15/18 - POD#5. Pt looks much better today. Bowel function seems to be returning with liquid BM this AM. Will start clears. Path - Spoke with pathologist. AdenoCa - Mod Diff -- [id number]. Probably Stage IIIC. Discussed with Dr. Raya who will see him as an outpatient. Will give report to patient and family this afternoon. Weakness - Walked more with PT. continue PT Dehydration - improved. Anemia - Improved today. Lab error? Atelectasis - IS much better. Hypocalcemia - better today. No further replacement. May shower. Please call with questions. time=10min Subjective Date of service: 08/20/18 Patient Reports: Positive: feels better, pain is less, bowel movement (liquid). Negative: nausea, vomiting Objective Vital Signs - 12hr 08/20/18 08/20/18 04:44 05:40 Temperature 98.2 F Pulse Rate 78 Respiratory 18 18 Rate Blood Pressure 123/67 O2 Sat by Pulse 99 Oximetry - General physical appearance no distress, no pain, other (looks great) - Eyes normal occular movement - Respiratory normal expansion, normal respiratory effort - Abdomen soft, not tender, bowel sounds hypoactive, not distended, not guarding, not rigid, surgical scars (C/D/I) - Integumentary no rash, no growths, no abnormal pigmentation - Psychiatric oriented to time, oriented to person, oriented to place, speech is normal, memory intact - Labs 08/20/18 07:54 08/20/18 07:54 Diabetes panel 08/20/18 Range/Units 07:54 Sodium 137 (137-145) mmol/L Potassium 3.6 (3.6-5.0) mmol/L Chloride 97.4 L (98-107) mmol/L Carbon Dioxide 26 (22-30) mmol/L BUN 6 L (9-20) mg/dL Creatinine 0.4 L (0.8-1.5) mg/dL Glucose 98 (75-100) mg/dL Calcium 8.2 L (8.4-10.2) mg/dL Calcium panel 08/20/18 Range/Units 07:54 Calcium 8.2 L (8.4-10.2) mg/dL Pituitary panel 08/20/18 Range/Units 07:54 Sodium 137 (137-145) mmol/L Potassium 3.6 (3.6-5.0) mmol/L Chloride 97.4 L (98-107) mmol/L Carbon Dioxide 26 (22-30) mmol/L BUN 6 L (9-20) mg/dL Creatinine 0.4 L (0.8-1.5) mg/dL Glucose 98 (75-100) mg/dL Calcium 8.2 L (8.4-10.2) mg/dL Adrenal panel 08/20/18 Range/Units 07:54 Sodium 137 (137-145) mmol/L Potassium 3.6 (3.6-5.0) mmol/L Chloride 97.4 L (98-107) mmol/L Carbon Dioxide 26 (22-30) mmol/L BUN 6 L (9-20) mg/dL Creatinine 0.4 L (0.8-1.5) mg/dL Glucose 98 (75-100) mg/dL Calcium 8.2 L (8.4-10.2) mg/dL
--- NOTE | 2018-08-20 16:17 | Event Note ---
Date: 08/20/18 Spoke with patient and family. Discussed pathology report. Patient has been set up to see Dr. Raya. A PETCT will be ordered as an outpt. All questions were answered. Pt is currently tolerating clears well.
--- NOTE | 2018-08-20 19:12 | Progress Note ---
Assessment and Plan Assessment and plan: 63-year-old male w/o any PMH presented to the emergency room with complaints of abdominal pain, CT abdomen showed a large bowel obstruction however he refused admission to the hospital. but Patient came back in 2 dys with worsening abdominal distention along with N/V, GS consulted, s/p s/p left hemicolectomy on 08/15/18 . Biopsy result pending. 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 Surgeon discussed the findings with the patient and the family Referred to oncologist --Hypokalemia; corrected --DVt prophylaxis, SCDs, Increase ambulation as tolerated Possible discharge in 1-2 days if stable History Interval history: Reason seen and examined medical records reviewed No new events reported by the nursing Patient had a bowel movement, started clear liquids patient is tolerating well Histopathology report reviewed Vital signs noted Hospitalist Physical - Constitutional Vitals: Temp Pulse Resp BP Pulse Ox 98.3 F 85 18 149/77 98 08/20/18 16:57 08/20/18 16:57 08/20/18 16:57 08/20/18 16:57 08/20/18 16:57 General appearance: Present: no acute distress, well-nourished - EENT Eyes: Present: PERRL, EOM intact - Neck Neck: Present: supple, normal ROM - Respiratory Respiratory effort: normal Respiratory: bilateral: diminished, negative: rales, rhonchi, wheezing - Cardiovascular Rhythm: regular Heart Sounds: Present: S1 & S2 - Extremities Extremities: no ischemia, No edema - Abdominal General gastrointestinal: soft, non-tender, non-distended, normal bowel sounds - Integumentary Integumentary: Present: clear, warm - Psychiatric Psychiatric: appropriate mood/affect, cooperative - Neurologic Neurologic: CNII-XII intact, moves all extremities Results - Labs CBC & Chem 7: 08/20/18 07:54 08/20/18 07:54 Labs: Laboratory Last Values WBC 4.9 K/mm3 (4.5-11.0) 08/19/18 05:21 RBC 3.42 M/mm3 (3.65-5.03) L 08/19/18 05:21 Hgb 10.7 gm/dl (11.8-15.2) L 08/20/18 07:54 Hct 31.0 % (35.5-45.6) L 08/20/18 07:54 MCV 85 fl (84-94) 08/19/18 05:21 MCH 29 pg (28-32) 08/19/18 05:21 MCHC 34 % (32-34) 08/19/18 05:21 RDW 14.8 % (13.2-15.2) 08/19/18 05:21 Plt Count 204 K/mm3 (140-440) 08/19/18 05:21 Lymph % (Auto) 11.5 % (13.4-35.0) L 08/19/18 05:21 [place] % (Auto) 15.3 % (0.0-7.3) H 08/19/18 05:21 Eos % (Auto) 1.2 % (0.0-4.3) 08/19/18 05:21 Baso % (Auto) 0.5 % (0.0-1.8) 08/19/18 05:21 Lymph # 0.6 K/mm3 (1.2-5.4) L 08/19/18 05:21 [place] # 0.8 K/mm3 (0.0-0.8) 08/19/18 05:21 Eos # 0.1 K/mm3 (0.0-0.4) 08/19/18 05:21 Baso # 0.0 K/mm3 (0.0-0.1) 08/19/18 05:21 Add Manual Diff Complete 08/15/18 05:18 Total Counted 100 08/15/18 05:18 Seg Neutrophils % 71.5 % (40.0-70.0) H 08/19/18 05:21 Seg Neuts % (Manual) 58.0 % (40.0-70.0) 08/15/18 05:18 Band Neutrophils % 6.0 % 08/15/18 05:18 Lymphocytes % (Manual) 19.0 % (13.4-35.0) 08/15/18 05:18 Reactive Lymphs % (Man) 0 % 08/15/18 05:18 Monocytes % (Manual) 13.0 % (0.0-7.3) H 08/15/18 05:18 Eosinophils % (Manual) 4.0 % (0.0-4.3) 08/15/18 05:18 Basophils % (Manual) 0 % (0.0-1.8) 08/15/18 05:18 Metamyelocytes % 0 % 08/15/18 05:18 Myelocytes % 0 % 08/15/18 05:18 Promyelocytes % 0 % 08/15/18 05:18 Blast Cells % 0 % 08/15/18 05:18 Nucleated RBC % Not Reportable 08/15/18 05:18 Seg Neutrophils # 3.5 K/mm3 (1.8-7.7) 08/19/18 05:21 Seg Neutrophils # Man 1.9 K/mm3 (1.8-7.7) 08/15/18 05:18 Band Neutrophils # 0.2 K/mm3 08/15/18 05:18 Lymphocytes # (Manual) 0.6 K/mm3 (1.2-5.4) L 08/15/18 05:18 Abs React Lymphs (Man) 0.0 K/mm3 08/15/18 05:18 Monocytes # (Manual) 0.4 K/mm3 (0.0-0.8) 08/15/18 05:18 Eosinophils # (Manual) 0.1 K/mm3 (0.0-0.4) 08/15/18 05:18 Basophils # (Manual) 0.0 K/mm3 (0.0-0.1) 08/15/18 05:18 Metamyelocytes # 0.0 K/mm3 08/15/18 05:18 Myelocytes # 0.0 K/mm3 08/15/18 05:18 Promyelocytes # 0.0 K/mm3 08/15/18 05:18 Blast Cells # 0.0 K/mm3 08/15/18 05:18 WBC Morphology Not Reportable 08/15/18 05:18 Hypersegmented Neuts Not Reportable 08/15/18 05:18 Hyposegmented Neuts Not Reportable 08/15/18 05:18 Hypogranular Neuts Not Reportable 08/15/18 05:18 Smudge Cells Not Reportable 08/15/18 05:18 Toxic Granulation Not Reportable 08/15/18 05:18 Toxic Vacuolation Not Reportable 08/15/18 05:18 Dohle Bodies Not Reportable 08/15/18 05:18 Pelger-Huet Anomaly Not Reportable 08/15/18 05:18 Emy Rods Not Reportable 08/15/18 05:18 Platelet Estimate Consistent w auto 08/15/18 05:18 Clumped Platelets Not Reportable 08/15/18 05:18 Plt Clumps, EDTA Not Reportable 08/15/18 05:18 Large Platelets Not Reportable 08/15/18 05:18 Giant Platelets Not Reportable 08/15/18 05:18 Platelet Satelliting Not Reportable 08/15/18 05:18 Plt Morphology Comment Not Reportable 08/15/18 05:18 RBC Morphology Not Reportable 08/15/18 05:18 Dimorphic RBCs Not Reportable 08/15/18 05:18 Polychromasia Not Reportable 08/15/18 05:18 Hypochromasia Not Reportable 08/15/18 05:18 Poikilocytosis Not Reportable 08/15/18 05:18 Anisocytosis Few 08/15/18 05:18 Microcytosis Not Reportable 08/15/18 05:18 Macrocytosis Not Reportable 08/15/18 05:18 Spherocytes Not Reportable 08/15/18 05:18 Pappenheimer Bodies Not Reportable 08/15/18 05:18 Sickle Cells Not Reportable 08/15/18 05:18 Target Cells Not Reportable 08/15/18 05:18 Tear Drop Cells Not Reportable 08/15/18 05:18 Ovalocytes Rare 08/15/18 05:18 Helmet Cells Not Reportable 08/15/18 05:18 [place] Bodies Not Reportable 08/15/18 05:18 [place] Rings Not Reportable 08/15/18 05:18 Mariusz Cells Not Reportable 08/15/18 05:18 Bite Cells Not Reportable 08/15/18 05:18 Crenated Cell Not Reportable 08/15/18 05:18 Elliptocytes Not Reportable 08/15/18 05:18 Acanthocytes (Spur) Not Reportable 08/15/18 05:18 Rouleaux Not Reportable 08/15/18 05:18 Hemoglobin C Crystals Not Reportable 08/15/18 05:18 Schistocytes Not Reportable 08/15/18 05:18 Malaria parasites Not Reportable 08/15/18 05:18 Dannie Bodies Not Reportable 08/15/18 05:18 Hem Pathologist Commnt No 08/15/18 05:18 Sodium 137 mmol/L (137-145) 08/20/18 07:54 Potassium 3.6 mmol/L (3.6-5.0) 08/20/18 07:54 Chloride 97.4 mmol/L (98-107) L 08/20/18 07:54 Carbon Dioxide 26 mmol/L (22-30) 08/20/18 07:54 Anion Gap 17 mmol/L 08/20/18 07:54 BUN 6 mg/dL (9-20) L 08/20/18 07:54 Creatinine 0.4 mg/dL (0.8-1.5) L 08/20/18 07:54 Estimated GFR > 60 ml/min 08/20/18 07:54 BUN/Creatinine Ratio 15 % 08/20/18 07:54 Glucose 98 mg/dL (75-100) 08/20/18 07:54 Lactic Acid 0.70 mmol/L (0.7-2.0) 08/13/18 07:32 Calcium 8.2 mg/dL (8.4-10.2) L 08/20/18 07:54 Phosphorus 2.50 mg/dL (2.5-4.5) 08/18/18 05:49 Magnesium 1.80 mg/dL (1.7-2.3) 08/18/18 05:49 Total Bilirubin 0.70 mg/dL (0.1-1.2) 08/13/18 06:09 AST 18 units/L (5-40) 08/13/18 06:09 ALT 12 units/L (7-56) 08/13/18 06:09 Alkaline Phosphatase 52 units/L (35-129) 08/13/18 06:09 Total Protein 6.7 g/dL (6.3-8.2) 08/13/18 06:09 Albumin 3.9 g/dL (3.9-5) 08/13/18 06:09 Albumin/Globulin Ratio 1.4 % 08/13/18 06:09 Lipase 12 units/L (13-60) L 08/13/18 06:09 Urine Color Velia (Yellow) 08/13/18 Unknown Urine Turbidity Hazy (Clear) 08/13/18 Unknown Urine pH 5.0 (5.0-7.0) 08/13/18 Unknown Ur Specific [place] 1.036 (1.003-1.030) H 08/13/18 Unknown Urine Protein 30 mg/dl mg/dL (Negative) 08/13/18 Unknown Urine Glucose (UA) Neg mg/dL (Negative) 08/13/18 Unknown Urine Ketones 80 mg/dL (Negative) 08/13/18 Unknown Urine Blood Mod (Negative) 08/13/18 Unknown Urine Nitrite Neg (Negative) 08/13/18 Unknown Urine Bilirubin Neg (Negative) 08/13/18 Unknown Urine Urobilinogen 4.0 mg/dL (<2.0) 08/13/18 Unknown Ur Leukocyte Esterase Neg (Negative) 08/13/18 Unknown Urine WBC (Auto) 3.0 /HPF (0.0-6.0) 08/13/18 Unknown Urine RBC (Auto) 28.0 /HPF (0.0-6.0) 08/13/18 Unknown U Epithel Cells (Auto) < 1.0 /HPF (0-13.0) 08/13/18 Unknown Urine Mucus 3+ /HPF 08/13/18 Unknown Nutrition/Malnutrition Assess - Dietary Evaluation Nutrition/Malnutrition Findings: Nutrition Notes Start: 08/20/18 14:18 Freq: Status: Active Protocol: Document 08/20/18 14:18 RM (Rec: 08/20/18 14:33 RM [id number]) Nutrition Notes Need for Assessment generated from: LOS Initial or Follow up Assessment Other Pertinent Diagnosis Abdominal surgical wound, Large bowel obstruction, S/P left hemicolectomy Current Diet Clear liquid Labs/Tests Reviewed Pertinent Medications Reviewed Height 5 ft 9 in Weight 95.6 kg Usual Body Weight 72.27 kg [place] Body Weight (lbs) 160.0 BMI 31.1 Subjective/Other Information Pt screened for LOS. NGT removed. NPO in place earlier today. Diet advanced to clear liquid later today. Pt stated that he has no appetite. Denied N/V today. Stated that his UBW was 159 lbs 1 week ago. Burn Absent Trauma Absent #1 Nutrition Diagnosis Altered GI function Etiology large bowel obstruction As Evidenced by Signs and Symptoms S/P hemicolectomy Is patient on ventilator? No Is Patient Ambulatory and/or Out of Bed Yes REE-([facility]-ambulatory/OOB) [ 2276.794 NUTR.MSJOOB] Calculation Used for Recommendations [facility] Additional Notes Protein Needs: 101-126g (1.2-1 .5g/kg, 84kg adjBW) Fluid Needs: 1 ml/kcal Nutrition Intervention Change Diet Order: Advance diet when medically able Add Supplement/Snack (indicate name/kcal Ensure Clear Mixed [place] 1 /protein ) daily Provides kCal: 240 Provides Protein (gm) 8 Goal #1 Diet advancement Anticipated Discharge Needs: Unable to determine at this time Follow-Up By: 08/22/18 Additional Comments Follow for PO and ONS intakes
[2018-08-20] MEDS: DILAUDID IV PRN (20:52)
[2018-08-20] MEDS: D5W/0.45% NACL/KCL 20 MEQ 20 MEQ/1,000 ML BAG IV SCH (21:30)
[2018-08-20] MEDS: LOVENOX SUB-Q SCH (21:30)
[2018-08-21] MEDS: TORADOL IV SCH ×4 (00:29→18:14)
--- NOTE | 2018-08-21 11:15 | Progress Note ---
Assessment and Plan - Patient Problems (1) Large bowel obstruction Current Visit: Yes Status: Acute Plan to address problem: Pt stable. s/p left hemicolectomy with primary anastomosis - 08/15/18 - POD#6. Looks well. Having regular bowel function now. advance to soft diet. If tolerated, may d/c home with f/u in 2 weeks with me. May shower. d/c IVF. Path - Spoke with pathologist. AdenoCa - Mod Diff -- [id number]. Probably Stage IIIC. Appreciate Dr. Raya seeing the patient today. Weakness - Walked more with PT. continue PT. Overall, improved. May shower. Please call with questions. time=10min Subjective Date of service: 08/21/18 Patient Reports: Positive: no new complaints, feels better, tolerating liquids well, flatus, bowel movement. Negative: nausea, vomiting Objective Vital Signs - 12hr 08/21/18 08/21/18 08/21/18 00:29 00:59 05:00 Temperature 97.6 F Pulse Rate 82 Respiratory 17 17 17 Rate Blood Pressure 125/62 [Right] O2 Sat by Pulse 97 Oximetry 08/21/18 08/21/18 05:20 05:50 Temperature Pulse Rate Respiratory 17 17 Rate Blood Pressure [Right] O2 Sat by Pulse Oximetry - General physical appearance no distress, no pain, other (looks well) - Eyes normal occular movement - Abdomen soft, not tender, not distended, not guarding, not rigid, surgical scars (C/D/I) - Psychiatric oriented to time, oriented to person, oriented to place, speech is normal, memory intact - Labs 08/20/18 07:54 08/20/18 07:54
--- NOTE | 2018-08-21 13:07 | Progress Note ---
Assessment and Plan Assessment and plan: 63-year-old male w/o any PMH presented to the emergency room with complaints of abdominal pain, CT abdomen showed a large bowel obstruction however he refused admission to the hospital. but Patient came back in 2 dys with worsening abdominal distention along with N/V, GS consulted, s/p s/p left hemicolectomy on 08/15/18 . 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 Surgeon discussed the findings with the patient and the family oncologist evaluated the patient Recommend follow up upon discharge --Hypokalemia; corrected --DVt prophylaxis, SCDs, Increase ambulation as tolerated Possible discharge in 1-2 days if stable Plan of care is reviewed with the patient and his nurse History Interval history: Patient seen and examined medical records reviewed Patient feels better, ambulatory Had bowel movement, tolerating diet Denies any nausea vomiting Vital signs reviewed Hospitalist Physical - Constitutional Vitals: Temp Pulse Resp BP Pulse Ox 97.6 F 82 20 125/62 97 08/21/18 05:00 08/21/18 05:00 08/21/18 11:54 08/21/18 05:00 08/21/18 05:00 General appearance: Present: no acute distress, well-nourished - EENT Eyes: Present: PERRL, EOM intact - Neck Neck: Present: supple, normal ROM - Respiratory Respiratory effort: normal Respiratory: bilateral: diminished, negative: rales, rhonchi, wheezing - Cardiovascular Rhythm: regular Heart Sounds: Present: S1 & S2 - Extremities Extremities: no ischemia, No edema Peripheral Pulses: within normal limits - Abdominal General gastrointestinal: soft, non-tender, non-distended, normal bowel sounds, other (surgical sutures clean) - Integumentary Integumentary: Present: clear, warm - Psychiatric Psychiatric: appropriate mood/affect, cooperative - Neurologic Neurologic: CNII-XII intact, moves all extremities Results - Labs CBC & Chem 7: 08/20/18 07:54 08/20/18 07:54 Labs: Laboratory Last Values WBC 4.9 K/mm3 (4.5-11.0) 08/19/18 05:21 RBC 3.42 M/mm3 (3.65-5.03) L 08/19/18 05:21 Hgb 10.7 gm/dl (11.8-15.2) L 08/20/18 07:54 Hct 31.0 % (35.5-45.6) L 08/20/18 07:54 MCV 85 fl (84-94) 08/19/18 05:21 MCH 29 pg (28-32) 08/19/18 05:21 MCHC 34 % (32-34) 08/19/18 05:21 RDW 14.8 % (13.2-15.2) 08/19/18 05:21 Plt Count 204 K/mm3 (140-440) 08/19/18 05:21 Lymph % (Auto) 11.5 % (13.4-35.0) L 08/19/18 05:21 [place] % (Auto) 15.3 % (0.0-7.3) H 08/19/18 05:21 Eos % (Auto) 1.2 % (0.0-4.3) 08/19/18 05:21 Baso % (Auto) 0.5 % (0.0-1.8) 08/19/18 05:21 Lymph # 0.6 K/mm3 (1.2-5.4) L 08/19/18 05:21 [place] # 0.8 K/mm3 (0.0-0.8) 08/19/18 05:21 Eos # 0.1 K/mm3 (0.0-0.4) 08/19/18 05:21 Baso # 0.0 K/mm3 (0.0-0.1) 08/19/18 05:21 Add Manual Diff Complete 08/15/18 05:18 Total Counted 100 08/15/18 05:18 Seg Neutrophils % 71.5 % (40.0-70.0) H 08/19/18 05:21 Seg Neuts % (Manual) 58.0 % (40.0-70.0) 08/15/18 05:18 Band Neutrophils % 6.0 % 08/15/18 05:18 Lymphocytes % (Manual) 19.0 % (13.4-35.0) 08/15/18 05:18 Reactive Lymphs % (Man) 0 % 08/15/18 05:18 Monocytes % (Manual) 13.0 % (0.0-7.3) H 08/15/18 05:18 Eosinophils % (Manual) 4.0 % (0.0-4.3) 08/15/18 05:18 Basophils % (Manual) 0 % (0.0-1.8) 08/15/18 05:18 Metamyelocytes % 0 % 08/15/18 05:18 Myelocytes % 0 % 08/15/18 05:18 Promyelocytes % 0 % 08/15/18 05:18 Blast Cells % 0 % 08/15/18 05:18 Nucleated RBC % Not Reportable 08/15/18 05:18 Seg Neutrophils # 3.5 K/mm3 (1.8-7.7) 08/19/18 05:21 Seg Neutrophils # Man 1.9 K/mm3 (1.8-7.7) 08/15/18 05:18 Band Neutrophils # 0.2 K/mm3 08/15/18 05:18 Lymphocytes # (Manual) 0.6 K/mm3 (1.2-5.4) L 08/15/18 05:18 Abs React Lymphs (Man) 0.0 K/mm3 08/15/18 05:18 Monocytes # (Manual) 0.4 K/mm3 (0.0-0.8) 08/15/18 05:18 Eosinophils # (Manual) 0.1 K/mm3 (0.0-0.4) 08/15/18 05:18 Basophils # (Manual) 0.0 K/mm3 (0.0-0.1) 08/15/18 05:18 Metamyelocytes # 0.0 K/mm3 08/15/18 05:18 Myelocytes # 0.0 K/mm3 08/15/18 05:18 Promyelocytes # 0.0 K/mm3 08/15/18 05:18 Blast Cells # 0.0 K/mm3 08/15/18 05:18 WBC Morphology Not Reportable 08/15/18 05:18 Hypersegmented Neuts Not Reportable 08/15/18 05:18 Hyposegmented Neuts Not Reportable 08/15/18 05:18 Hypogranular Neuts Not Reportable 08/15/18 05:18 Smudge Cells Not Reportable 08/15/18 05:18 Toxic Granulation Not Reportable 08/15/18 05:18 Toxic Vacuolation Not Reportable 08/15/18 05:18 Dohle Bodies Not Reportable 08/15/18 05:18 Pelger-Huet Anomaly Not Reportable 08/15/18 05:18 Emy Rods Not Reportable 08/15/18 05:18 Platelet Estimate Consistent w auto 08/15/18 05:18 Clumped Platelets Not Reportable 08/15/18 05:18 Plt Clumps, EDTA Not Reportable 08/15/18 05:18 Large Platelets Not Reportable 08/15/18 05:18 Giant Platelets Not Reportable 08/15/18 05:18 Platelet Satelliting Not Reportable 08/15/18 05:18 Plt Morphology Comment Not Reportable 08/15/18 05:18 RBC Morphology Not Reportable 08/15/18 05:18 Dimorphic RBCs Not Reportable 08/15/18 05:18 Polychromasia Not Reportable 08/15/18 05:18 Hypochromasia Not Reportable 08/15/18 05:18 Poikilocytosis Not Reportable 08/15/18 05:18 Anisocytosis Few 08/15/18 05:18 Microcytosis Not Reportable 08/15/18 05:18 Macrocytosis Not Reportable 08/15/18 05:18 Spherocytes Not Reportable 08/15/18 05:18 Pappenheimer Bodies Not Reportable 08/15/18 05:18 Sickle Cells Not Reportable 08/15/18 05:18 Target Cells Not Reportable 08/15/18 05:18 Tear Drop Cells Not Reportable 08/15/18 05:18 Ovalocytes Rare 08/15/18 05:18 Helmet Cells Not Reportable 08/15/18 05:18 Uri[place] Bodies Not Reportable 08/15/18 05:18 [place] Rings Not Reportable 08/15/18 05:18 Mariusz Cells Not Reportable 08/15/18 05:18 Bite Cells Not Reportable 08/15/18 05:18 Crenated Cell Not Reportable 08/15/18 05:18 Elliptocytes Not Reportable 08/15/18 05:18 Acanthocytes (Spur) Not Reportable 08/15/18 05:18 Rouleaux Not Reportable 08/15/18 05:18 Hemoglobin C Crystals Not Reportable 08/15/18 05:18 Schistocytes Not Reportable 08/15/18 05:18 Malaria parasites Not Reportable 08/15/18 05:18 Dannie Bodies Not Reportable 08/15/18 05:18 Hem Pathologist Commnt No 08/15/18 05:18 Sodium 137 mmol/L (137-145) 08/20/18 07:54 Potassium 3.6 mmol/L (3.6-5.0) 08/20/18 07:54 Chloride 97.4 mmol/L (98-107) L 08/20/18 07:54 Carbon Dioxide 26 mmol/L (22-30) 08/20/18 07:54 Anion Gap 17 mmol/L 08/20/18 07:54 BUN 6 mg/dL (9-20) L 08/20/18 07:54 Creatinine 0.4 mg/dL (0.8-1.5) L 08/20/18 07:54 Estimated GFR > 60 ml/min 08/20/18 07:54 BUN/Creatinine Ratio 15 % 08/20/18 07:54 Glucose 98 mg/dL (75-100) 08/20/18 07:54 Lactic Acid 0.70 mmol/L (0.7-2.0) 08/13/18 07:32 Calcium 8.2 mg/dL (8.4-10.2) L 08/20/18 07:54 Phosphorus 2.50 mg/dL (2.5-4.5) 08/18/18 05:49 Magnesium 1.80 mg/dL (1.7-2.3) 08/18/18 05:49 Total Bilirubin 0.70 mg/dL (0.1-1.2) 08/13/18 06:09 AST 18 units/L (5-40) 08/13/18 06:09 ALT 12 units/L (7-56) 08/13/18 06:09 Alkaline Phosphatase 52 units/L (35-129) 08/13/18 06:09 Total Protein 6.7 g/dL (6.3-8.2) 08/13/18 06:09 Albumin 3.9 g/dL (3.9-5) 08/13/18 06:09 Albumin/Globulin Ratio 1.4 % 08/13/18 06:09 Lipase 12 units/L (13-60) L 08/13/18 06:09 Urine Color Velia (Yellow) 08/13/18 Unknown Urine Turbidity Hazy (Clear) 08/13/18 Unknown Urine pH 5.0 (5.0-7.0) 08/13/18 Unknown Ur Specific [place] 1.036 (1.003-1.030) H 08/13/18 Unknown Urine Protein 30 mg/dl mg/dL (Negative) 08/13/18 Unknown Urine Glucose (UA) Neg mg/dL (Negative) 08/13/18 Unknown Urine Ketones 80 mg/dL (Negative) 08/13/18 Unknown Urine Blood Mod (Negative) 08/13/18 Unknown Urine Nitrite Neg (Negative) 08/13/18 Unknown Urine Bilirubin Neg (Negative) 08/13/18 Unknown Urine Urobilinogen 4.0 mg/dL (<2.0) 08/13/18 Unknown Ur Leukocyte Esterase Neg (Negative) 08/13/18 Unknown Urine WBC (Auto) 3.0 /HPF (0.0-6.0) 08/13/18 Unknown Urine RBC (Auto) 28.0 /HPF (0.0-6.0) 08/13/18 Unknown U Epithel Cells (Auto) < 1.0 /HPF (0-13.0) 08/13/18 Unknown Urine Mucus 3+ /HPF 08/13/18 Unknown Nutrition/Malnutrition Assess - Dietary Evaluation Nutrition/Malnutrition Findings: Nutrition Notes Start: 08/20/18 14:18 Freq: Status: Active Protocol: Document 08/20/18 14:18 RM (Rec: 08/20/18 14:33 RM [id number]) Nutrition Notes Need for Assessment generated from: LOS Initial or Follow up Assessment Other Pertinent Diagnosis Abdominal surgical wound, Large bowel obstruction, S/P left hemicolectomy Current Diet Clear liquid Labs/Tests Reviewed Pertinent Medications Reviewed Height 5 ft 9 in Weight 95.6 kg Usual Body Weight 72.27 kg [place] Body Weight (lbs) 160.0 BMI 31.1 Subjective/Other Information Pt screened for LOS. NGT removed. NPO in place earlier today. Diet advanced to clear liquid later today. Pt stated that he has no appetite. Denied N/V today. Stated that his UBW was 159 lbs 1 week ago. Burn Absent Trauma Absent #1 Nutrition Diagnosis Altered GI function Etiology large bowel obstruction As Evidenced by Signs and Symptoms S/P hemicolectomy Is patient on ventilator? No Is Patient Ambulatory and/or Out of Bed Yes REE-([facility]-ambulatory/OOB) [ 2276.794 NUTR.MSJOOB] Calculation Used for Recommendations [facility] Additional Notes Protein Needs: 101-126g (1.2-1 .5g/kg, 84kg adjBW) Fluid Needs: 1 ml/kcal Nutrition Intervention Change Diet Order: Advance diet when medically able Add Supplement/Snack (indicate name/kcal Ensure Clear Mixed [place] 1 /protein ) daily Provides kCal: 240 Provides Protein (gm) 8 Goal #1 Diet advancement Anticipated Discharge Needs: Unable to determine at this time Follow-Up By: 08/22/18 Additional Comments Follow for PO and ONS intakes
[2018-08-21] MEDS: NORCO 5/325 PO PRN (14:24)
--- NOTE | 2018-08-21 17:20 | Event Note ---
Date: 08/21/18 I stopped by to discuss the operative finding of the undescended testicles and what we recommend. He informed me that he was already aware of it and has already been evaluated by a urologist in the past. According to him, the urologist recommended that nothing be done about it.
--- NOTE | 2018-08-21 21:42 | Event Note ---
Date: 08/21/18 [id number]
[2018-08-21] MEDS: LOVENOX SUB-Q SCH (22:11)
--- NOTE | 2018-08-21 22:46 | Consultation ---
REFERRED BY: Dr. Teixeira. REASON FOR CONSULTATION: Colon cancer stage 3, postop. HISTORY PRESENT ILLNESS: I saw the patient, a 63-year-old male in the medical floor. The patient came to the hospital because of abdominal pain, who was in the ER, was found to have large bowel obstruction; however, he refused admission and went home, he came back because of increased distention, nausea, vomiting. During this time, the patient has been seen by GI team and surgical team. The patient underwent surgery on 08/15/2018. This shows left hemicolectomy, 4 cm adenocarcinoma, moderately differentiated, extending through muscularis propria to serosa and continuous with serosal surface. Margins negative. No lymphovascular or perineural invasion identified. A 4/14 lymph nodes are positive. Stage T4a N2a Mx. At this time, the patient is having abdominal discomfort, distention. He has had a bowel movement. He is on a liquid diet. CEA was ordered and it is not elevated surprisingly. REVIEW OF SYSTEMS: at this time, no headache, no visual disturbances. No ear discharge, no chest pain, no palpitations, no shortness of breath at rest. He has abdominal discomfort. The patient is postop and has ángel. No seizure or syncope. PAST MEDICAL HISTORY: Not contributory. PAST SURGICAL HISTORY: Nil. SOCIAL HISTORY: , lives with some relatives. No history of smoking. FAMILY HISTORY: Nil acute. PHYSICAL EXAMINATION: VITAL SIGNS: Temperature 98, pulse 83, respirations 18, BP 125/68. HEENT: Mild pallor, no icterus. NECK: No neck lymph nodes. HEART: S1, S2. LUNGS: Clear to auscultation anteriorly. ABDOMEN: Soft. [place] seen, distended. EXTREMITIES: No calf tenderness. NEUROLOGIC: Alert, awake, oriented. LABORATORY DATA: White cell 4.9, hemoglobin 10.7, MCV 85, platelet 204, potassium 3.6, creatinine 0.4, hemoglobin A1c 6.3, calcium 8.2, bilirubin 0.7, B12 of 213. ASSESSMENT: T4a N2a colon cancer, 4/14 lymph node positive, tumor extending through muscularis propria to serosa. CT abdomen done on 08/11/2018 shows abnormal areas of lumen, descending colon stricture. ASSESSMENT AND PLAN: 1. Colon cancer adenocarcinoma. 2. CEA is surprisingly not elevated. 3. The patient is postop. 4. PET CT will help as an outpatient. 5. Electrolyte issues. 6. The patient would need port placement as most likely chemotherapy options will be looked into. We will also look into genetic testing as an outpatient. 7. Mild anemia, we will follow. B12 level is on the low normal side. JOB# [id number] NM/NTS
[2018-08-22] MEDS: TORADOL IV SCH ×5 (00:24→22:05)
--- NOTE | 2018-08-22 12:11 | Progress Note ---
Assessment and Plan Assessment and plan: 63-year-old male w/o any PMH presented to the emergency room with complaints of abdominal pain, CT abdomen showed a large bowel obstruction however he refused admission to the hospital. but Patient came back in 2 dys with worsening abdominal distention along with N/V, GS consulted, s/p s/p left hemicolectomy on 08/15/18 . Biopsy result adenocarcinoma colon IIIC -Large Bowel obstruction: Present on admission s/p Open left hemicolectomy with primary anastomosis 08/15/18 and splenic flexure mobilization, --Cancer cancer /adenocarcinoma colon/probably stage III C Oncologist following --Hypokalemia; corrected --DVt prophylaxis, SCDs, Increase ambulation as tolerated Possible discharge in 1-2 days if stable Plan of care is reviewed with the patient and his nurse History Interval history: Patient seen and examined medical records reviewed Patient feels better no new complaints Ambulatory, tolerating oral nutrition Vital signs noted Hospitalist Physical - Constitutional Vitals: Temp Pulse Resp BP Pulse Ox 97.6 F 98 H 18 111/73 99 08/22/18 08:08 08/22/18 08:08 08/22/18 08:08 08/22/18 08:08 08/22/18 08:08 General appearance: Present: no acute distress, well-nourished - EENT Eyes: Present: PERRL, EOM intact - Neck Neck: Present: supple, normal ROM - Respiratory Respiratory effort: normal Respiratory: negative: rales, rhonchi, wheezing - Cardiovascular Rhythm: regular Heart Sounds: Present: S1 & S2 - Extremities Extremities: no ischemia, No edema - Abdominal General gastrointestinal: soft, non-tender, non-distended, normal bowel sounds, other (surgical scar clean) - Integumentary Integumentary: Present: clear, warm - Psychiatric Psychiatric: appropriate mood/affect, cooperative - Neurologic Neurologic: CNII-XII intact, moves all extremities Results - Labs CBC & Chem 7: 08/20/18 07:54 08/20/18 07:54 Labs: Laboratory Last Values WBC 4.9 K/mm3 (4.5-11.0) 08/19/18 05:21 RBC 3.42 M/mm3 (3.65-5.03) L 08/19/18 05:21 Hgb 10.7 gm/dl (11.8-15.2) L 08/20/18 07:54 Hct 31.0 % (35.5-45.6) L 08/20/18 07:54 MCV 85 fl (84-94) 08/19/18 05:21 MCH 29 pg (28-32) 08/19/18 05:21 MCHC 34 % (32-34) 08/19/18 05:21 RDW 14.8 % (13.2-15.2) 08/19/18 05:21 Plt Count 204 K/mm3 (140-440) 08/19/18 05:21 Lymph % (Auto) 11.5 % (13.4-35.0) L 08/19/18 05:21 [place] % (Auto) 15.3 % (0.0-7.3) H 08/19/18 05:21 Eos % (Auto) 1.2 % (0.0-4.3) 08/19/18 05:21 Baso % (Auto) 0.5 % (0.0-1.8) 08/19/18 05:21 Lymph # 0.6 K/mm3 (1.2-5.4) L 08/19/18 05:21 [place] # 0.8 K/mm3 (0.0-0.8) 08/19/18 05:21 Eos # 0.1 K/mm3 (0.0-0.4) 08/19/18 05:21 Baso # 0.0 K/mm3 (0.0-0.1) 08/19/18 05:21 Add Manual Diff Complete 08/15/18 05:18 Total Counted 100 08/15/18 05:18 Seg Neutrophils % 71.5 % (40.0-70.0) H 08/19/18 05:21 Seg Neuts % (Manual) 58.0 % (40.0-70.0) 08/15/18 05:18 Band Neutrophils % 6.0 % 08/15/18 05:18 Lymphocytes % (Manual) 19.0 % (13.4-35.0) 08/15/18 05:18 Reactive Lymphs % (Man) 0 % 08/15/18 05:18 Monocytes % (Manual) 13.0 % (0.0-7.3) H 08/15/18 05:18 Eosinophils % (Manual) 4.0 % (0.0-4.3) 08/15/18 05:18 Basophils % (Manual) 0 % (0.0-1.8) 08/15/18 05:18 Metamyelocytes % 0 % 08/15/18 05:18 Myelocytes % 0 % 08/15/18 05:18 Promyelocytes % 0 % 08/15/18 05:18 Blast Cells % 0 % 08/15/18 05:18 Nucleated RBC % Not Reportable 08/15/18 05:18 Seg Neutrophils # 3.5 K/mm3 (1.8-7.7) 08/19/18 05:21 Seg Neutrophils # Man 1.9 K/mm3 (1.8-7.7) 08/15/18 05:18 Band Neutrophils # 0.2 K/mm3 08/15/18 05:18 Lymphocytes # (Manual) 0.6 K/mm3 (1.2-5.4) L 08/15/18 05:18 Abs React Lymphs (Man) 0.0 K/mm3 08/15/18 05:18 Monocytes # (Manual) 0.4 K/mm3 (0.0-0.8) 08/15/18 05:18 Eosinophils # (Manual) 0.1 K/mm3 (0.0-0.4) 08/15/18 05:18 Basophils # (Manual) 0.0 K/mm3 (0.0-0.1) 08/15/18 05:18 Metamyelocytes # 0.0 K/mm3 08/15/18 05:18 Myelocytes # 0.0 K/mm3 08/15/18 05:18 Promyelocytes # 0.0 K/mm3 08/15/18 05:18 Blast Cells # 0.0 K/mm3 08/15/18 05:18 WBC Morphology Not Reportable 08/15/18 05:18 Hypersegmented Neuts Not Reportable 08/15/18 05:18 Hyposegmented Neuts Not Reportable 08/15/18 05:18 Hypogranular Neuts Not Reportable 08/15/18 05:18 Smudge Cells Not Reportable 08/15/18 05:18 Toxic Granulation Not Reportable 08/15/18 05:18 Toxic Vacuolation Not Reportable 08/15/18 05:18 Dohle Bodies Not Reportable 08/15/18 05:18 Pelger-Huet Anomaly Not Reportable 08/15/18 05:18 Emy Rods Not Reportable 08/15/18 05:18 Platelet Estimate Consistent w auto 08/15/18 05:18 Clumped Platelets Not Reportable 08/15/18 05:18 Plt Clumps, EDTA Not Reportable 08/15/18 05:18 Large Platelets Not Reportable 08/15/18 05:18 Giant Platelets Not Reportable 08/15/18 05:18 Platelet Satelliting Not Reportable 08/15/18 05:18 Plt Morphology Comment Not Reportable 08/15/18 05:18 RBC Morphology Not Reportable 08/15/18 05:18 Dimorphic RBCs Not Reportable 08/15/18 05:18 Polychromasia Not Reportable 08/15/18 05:18 Hypochromasia Not Reportable 08/15/18 05:18 Poikilocytosis Not Reportable 08/15/18 05:18 Anisocytosis Few 08/15/18 05:18 Microcytosis Not Reportable 08/15/18 05:18 Macrocytosis Not Reportable 08/15/18 05:18 Spherocytes Not Reportable 08/15/18 05:18 Pappenheimer Bodies Not Reportable 08/15/18 05:18 Sickle Cells Not Reportable 08/15/18 05:18 Target Cells Not Reportable 08/15/18 05:18 Tear Drop Cells Not Reportable 08/15/18 05:18 Ovalocytes Rare 08/15/18 05:18 Helmet Cells Not Reportable 08/15/18 05:18 Urias-Harts Bodies Not Reportable 08/15/18 05:18 [place] Rings Not Reportable 08/15/18 05:18 Mariusz Cells Not Reportable 08/15/18 05:18 Bite Cells Not Reportable 08/15/18 05:18 Crenated Cell Not Reportable 08/15/18 05:18 Elliptocytes Not Reportable 08/15/18 05:18 Acanthocytes (Spur) Not Reportable 08/15/18 05:18 Rouleaux Not Reportable 08/15/18 05:18 Hemoglobin C Crystals Not Reportable 08/15/18 05:18 Schistocytes Not Reportable 08/15/18 05:18 Malaria parasites Not Reportable 08/15/18 05:18 Dannie Bodies Not Reportable 08/15/18 05:18 Hem Pathologist Commnt No 08/15/18 05:18 Sodium 137 mmol/L (137-145) 08/20/18 07:54 Potassium 3.6 mmol/L (3.6-5.0) 08/20/18 07:54 Chloride 97.4 mmol/L (98-107) L 08/20/18 07:54 Carbon Dioxide 26 mmol/L (22-30) 08/20/18 07:54 Anion Gap 17 mmol/L 08/20/18 07:54 BUN 6 mg/dL (9-20) L 08/20/18 07:54 Creatinine 0.4 mg/dL (0.8-1.5) L 08/20/18 07:54 Estimated GFR > 60 ml/min 08/20/18 07:54 BUN/Creatinine Ratio 15 % 08/20/18 07:54 Glucose 98 mg/dL (75-100) 08/20/18 07:54 Lactic Acid 0.70 mmol/L (0.7-2.0) 08/13/18 07:32 Calcium 8.2 mg/dL (8.4-10.2) L 08/20/18 07:54 Phosphorus 2.50 mg/dL (2.5-4.5) 08/18/18 05:49 Magnesium 1.80 mg/dL (1.7-2.3) 08/18/18 05:49 Total Bilirubin 0.70 mg/dL (0.1-1.2) 08/13/18 06:09 AST 18 units/L (5-40) 08/13/18 06:09 ALT 12 units/L (7-56) 08/13/18 06:09 Alkaline Phosphatase 52 units/L (35-129) 08/13/18 06:09 Total Protein 6.7 g/dL (6.3-8.2) 08/13/18 06:09 Albumin 3.9 g/dL (3.9-5) 08/13/18 06:09 Albumin/Globulin Ratio 1.4 % 08/13/18 06:09 Lipase 12 units/L (13-60) L 08/13/18 06:09 Carcinoembryonic Ag See scanned report 08/13/18 11:39 Urine Color Velia (Yellow) 08/13/18 Unknown Urine Turbidity Hazy (Clear) 08/13/18 Unknown Urine pH 5.0 (5.0-7.0) 08/13/18 Unknown Ur Specific [place] 1.036 (1.003-1.030) H 08/13/18 Unknown Urine Protein 30 mg/dl mg/dL (Negative) 08/13/18 Unknown Urine Glucose (UA) Neg mg/dL (Negative) 08/13/18 Unknown Urine Ketones 80 mg/dL (Negative) 08/13/18 Unknown Urine Blood Mod (Negative) 08/13/18 Unknown Urine Nitrite Neg (Negative) 08/13/18 Unknown Urine Bilirubin Neg (Negative) 08/13/18 Unknown Urine Urobilinogen 4.0 mg/dL (<2.0) 08/13/18 Unknown Ur Leukocyte Esterase Neg (Negative) 08/13/18 Unknown Urine WBC (Auto) 3.0 /HPF (0.0-6.0) 08/13/18 Unknown Urine RBC (Auto) 28.0 /HPF (0.0-6.0) 08/13/18 Unknown U Epithel Cells (Auto) < 1.0 /HPF (0-13.0) 08/13/18 Unknown Urine Mucus 3+ /HPF 08/13/18 Unknown Nutrition/Malnutrition Assess - Dietary Evaluation Nutrition/Malnutrition Findings: Nutrition Notes Start: 08/20/18 14:18 Freq: Status: Active Protocol: Document 08/20/18 14:18 RM (Rec: 08/20/18 14:33 RM [id number]) Nutrition Notes Need for Assessment generated from: LOS Initial or Follow up Assessment Other Pertinent Diagnosis Abdominal surgical wound, Large bowel obstruction, S/P left hemicolectomy Current Diet Clear liquid Labs/Tests Reviewed Pertinent Medications Reviewed Height 5 ft 9 in Weight 95.6 kg Usual Body Weight 72.27 kg [place] Body Weight (lbs) 160.0 BMI 31.1 Subjective/Other Information Pt screened for LOS. NGT removed. NPO in place earlier today. Diet advanced to clear liquid later today. Pt stated that he has no appetite. Denied N/V today. Stated that his UBW was 159 lbs 1 week ago. Burn Absent Trauma Absent #1 Nutrition Diagnosis Altered GI function Etiology large bowel obstruction As Evidenced by Signs and Symptoms S/P hemicolectomy Is patient on ventilator? No Is Patient Ambulatory and/or Out of Bed Yes REE-([facility]-ambulatory/OOB) [ [id number] [id number]] Calculation Used for Recommendations [facility] Additional Notes Protein Needs: 101-126g (1.2-1 .5g/kg, 84kg adjBW) Fluid Needs: 1 ml/kcal Nutrition Intervention Change Diet Order: Advance diet when medically able Add Supplement/Snack (indicate name/kcal Ensure Clear Mixed [place] 1 /protein ) daily Provides kCal: 240 Provides Protein (gm) 8 Goal #1 Diet advancement Anticipated Discharge Needs: Unable to determine at this time Follow-Up By: 08/22/18 Additional Comments Follow for PO and ONS intakes
--- NOTE | 2018-08-22 15:22 | Query- SIRS ---
Cal Mena___Nu Date:___08/22/18 Core Shaper/CDS:__manju Phone#:____[phone] Exercise your independent professional judgment when responding to query. Questions asked do not imply a particular answer is desired or expected. We greatly appreciate your clarification on this issue. Clinical Documentation States: 63-year-old male w/o any PMH presented to the emergency room with complaints of abdominal pain, CT abdomen showed a large bowel obstruction however he refused admission to the hospital. but Patient came back in 2 dys with worsening abdominal distention along with N/V, GS consulted, s/p s/p left hemicolectomy on 08/15/18 . Biopsy result adenocarcinoma colon IIIC -Large Bowel obstruction: Present on admission s/p Open left hemicolectomy with primary anastomosis 08/15/18 and splenic flexure mobilization, --Cancer cancer /adenocarcinoma colon/probably stage III C Oncologist following --Hypokalemia; corrected Clinical Findings Show (include reference to source document): 08/13/18 WBC 3.4 OH 106 RR 25 Based on the above clinical scenario and your knowledge of the patient, please indicate the most appropriate diagnosis: [ ] SIRS (non-infectious) with Acute Organ Dysfunction [x ] SIRS (non-infectious) without Acute Organ Dysfunction [ ] Other: [ ] Unable to determine [ ] Comment/Explanation: Present on Admission: [ x] Yes (Y) [ ] Clinically undeterminable (W) [ ] No (N) Please also document response in your Progress Notes and/or Discharge Summary and indicate if the condition was present on admission. MTDD
--- NOTE | 2018-08-22 15:52 | Progress Note ---
Assessment and Plan - Patient Problems (1) Large bowel obstruction Current Visit: Yes Status: Acute Plan to address problem: Pt stable. s/p left hemicolectomy with primary anastomosis - 08/15/18 - POD#7. Looks well. Having regular bowel function now. tolerating soft diet. May d/c home with f/u in 2 weeks with me. May shower. d/c IVF. Path - [facility]eno[facility] - Mod Diff -- [id number]. Probably Stage IIIC. Weakness - Overall, improved. Please call with questions. time=10min Subjective Date of service: 08/22/18 Patient Reports: Positive: feels better, tolerating a regular diet, bowel movement. Negative: nausea, vomiting Objective Vital Signs - 12hr 08/22/18 08/22/18 08/22/18 04:23 08:08 12:00 Temperature 98.3 F 97.6 F 97.8 F Pulse Rate 85 98 H 73 Respiratory 18 18 18 Rate Blood Pressure 107/70 111/73 Blood Pressure 126/71 [Right] O2 Sat by Pulse 100 99 Oximetry 08/22/18 15:26 Temperature 97.2 F L Pulse Rate 85 Respiratory 18 Rate Blood Pressure 133/72 Blood Pressure [Right] O2 Sat by Pulse 100 Oximetry - General physical appearance no distress, no pain, other (looks well) - Eyes normal occular movement - Respiratory normal expansion, normal respiratory effort - Labs 08/20/18 07:54 08/20/18 07:54
--- NOTE | 2018-08-22 18:53 | Hem/Onc Progress Note ---
Assessment and Plan 1. Colon cancer adenocarcinoma. 2. CEA is surprisingly not elevated. 3. The patient is postop. 4. PET CT will help as an outpatient. 5. Electrolyte issues. 6. The patient would need port placement as most likely chemotherapy options will be looked into. We will also look into genetic testing as an outpatient. 7. Mild anemia, we will follow. B12 level is on the low normal side. mma level - will look into b12 inj d/w pt reg need for chemo - Patient Problems (1) Colon cancer Current Visit: Yes Status: Acute Subjective Date of service: 08/22/18 Principal diagnosis: colon ca Interval history: eating - ngt removed Objective - Constitutional Vitals: Last Vital Signs Temp 97.2 F L 08/22/18 15:26 Pulse 85 08/22/18 15:26 Resp 18 08/22/18 15:26 BP 133/72 08/22/18 15:26 Pulse Ox 100 08/22/18 15:26 Pain Intensity (0-10): 1/10 (abdo pain) General appearance: no acute distress Performance status: 3-limited selfcare - EENT Eyes: EOM intact ENT: clear oral mucosa Lymph node exam: negative cervical, negative supraclavicular - Neck Neck: normal ROM - Respiratory Respiratory effort: Positive: normal Respiratory: bilateral: CTA - Cardiovascular Heart Sounds: Present: S1 & S2 Extremities: No edema - Gastrointestinal General gastrointestinal: Present: soft, other (s/p sx) Rectal Exam: deferred - Genitourinary Male genitourinary: Present: deferred - Integumentary Integumentary: warm - Musculoskeletal Musculoskeletal: strength equal bilaterally - Neurologic Neurologic: moves all extremities Medications & Allergies - Medications Allergies/Adverse Reactions: Allergies No Known Allergies Allergy (Verified 08/13/18 06:05) Home Medications: Home Medications Medication Instructions Recorded Confirmed Last Taken Type Hyoscyamine Subl [Levsin Sl 0.125 0.125 mg SL Q4HR PRN #20 tablet 08/11/18 08/13/18 Unknown Rx TAB] Ondansetron [Zofran ODT TAB] 8 mg PO Q8HR #10 tab.rapdis 08/11/18 08/13/18 Unknown Rx Active Medications: Generic Name Dose Route Start Last Admin Trade Name Freq PRN Reason Stop Dose Admin Acetaminophen/Hydrocodone Bitart 2 each 08/21/18 09:55 08/21/18 14:24 [employer] 5/325 PO 1 each Q6H PRN Administration Pain, Moderate (4-6) Enoxaparin Sodium 40 mg 08/16/18 22:00 08/21/18 22:11 Lovenox SUB-Q 40 mg QDAY@2200 CK Administration Hydralazine HCl 5 mg 08/13/18 10:20 Apresoline IV Q30MIN PRN Hypertension Hydromorphone HCl 0.5 mg 08/15/18 15:52 08/20/18 20:52 Dilaudid IV 0.5 mg Q3H PRN Administration Pain , Severe (7-10) Ketorolac Tromethamine 30 mg 08/18/18 16:00 08/22/18 12:20 Toradol IV 08/23/18 15:59 30 mg Q6H CK Administration Lorazepam 2 mg 08/13/18 10:20 Ativan IV Q4H PRN Agitation Ondansetron HCl 4 mg 08/17/18 10:14 Zofran IV Q6H PRN Nausea And Vomiting
[2018-08-22] MEDS: NORCO 5/325 PO PRN (21:18)
[2018-08-22] MEDS: LOVENOX SUB-Q SCH (21:19)
[2018-08-23 04:34] LABS: Basophils % (Auto) 0.6 % (0.0-1.8); Eosinophils # (Auto) 0.1 K/mm3 (0.0-0.4); Eosinophils % (Auto) 0.9 % (0.0-4.3); Hematocrit 28.1 % (35.5-45.6); Hemoglobin 9.6 gm/dl (11.8-15.2); Lymphocytes % (Auto) 14.3 % (13.4-35.0); Mean Corpuscular HGB Conc 34 % (32-34); Mean Corpuscular Volume 84 fl (84-94); Monocytes # (Auto) 0.6 K/mm3 (0.0-0.8); Monocytes % (Auto) 8.3 % (0.0-7.3); Platelet Count 251 K/mm3 (140-440); Red Blood Count 3.36 M/mm3 (3.65-5.03); Red Cell Distribution Width 14.9 % (13.2-15.2)
[2018-08-23 05:02] LABS: Alanine Aminotransferase 112 units/L (7-56); Albumin 2.9 g/dL (3.9-5); BUN/Creatinine Ratio 23; Blood Urea Nitrogen 9 mg/dL (9-20); Calcium 8.2 mg/dL (8.4-10.2); Hemolysis Index 3
[2018-08-23] MEDS: TORADOL IV SCH ×2 (06:00→09:37)
--- NOTE | 2018-08-23 07:23 | Hem/Onc Progress Note ---
Assessment and Plan 1. Colon cancer adenocarcinoma. IIIC - will review as OP 2. CEA is surprisingly not elevated. 3. The patient is postop. 4. PET CT will help as an outpatient. 5. Electrolyte issues. 6. The patient would need port placement as most likely chemotherapy options will be looked into. We will also look into genetic testing as an outpatient. 7. Mild anemia, we will follow. B12 level is on the low normal side. 08/23/18 - mma level - will look into b12 inj - pt says he does not want anything now d/w pt reg need for chemo - port placement later anemia - will follow abn LFTs - Patient Problems (1) Colon cancer Current Visit: Yes Status: Acute Subjective Date of service: 08/23/18 Principal diagnosis: colo n ca Interval history: pt says doing better Objective - Constitutional Vitals: Last Vital Signs Temp 97.4 F L 08/23/18 03:27 Pulse 81 08/23/18 03:27 Resp 16 08/23/18 03:27 BP 115/72 08/23/18 03:27 Pulse Ox 97 08/23/18 03:27 Pain Intensity (0-10): denies any pain General appearance: no acute distress Performance status: 3-limited selfcare - EENT Eyes: EOM intact ENT: clear oral mucosa Lymph node exam: negative cervical - Neck Neck: normal ROM - Respiratory Respiratory effort: Positive: normal Respiratory: bilateral: CTA - Cardiovascular Heart Sounds: Present: S1 & S2 Extremities: No edema - Gastrointestinal General gastrointestinal: Present: soft Rectal Exam: deferred - Genitourinary Male genitourinary: Present: deferred - Integumentary Integumentary: warm - Musculoskeletal Musculoskeletal: strength equal bilaterally - Neurologic Neurologic: moves all extremities - Psychiatric Psychiatric: appropriate mood/affect - Labs Lab Results: Laboratory Results - last 24 hr 08/23/18 08/23/18 03:48 03:48 WBC 6.9 RBC 3.36 L Hgb 9.6 L Hct 28.1 L MCV 84 MCH 29 MCHC 34 RDW 14.9 Plt Count 251 Lymph % (Auto) 14.3 [place] % (Auto) 8.3 H Eos % (Auto) 0.9 Baso % (Auto) 0.6 Lymph # 1.0 L [place] # 0.6 Eos # 0.1 Baso # 0.0 Seg Neutrophils % 75.9 H Seg Neutrophils # 5.2 Sodium 137 Potassium 3.2 L Chloride 100.6 Carbon Dioxide 25 Anion Gap 15 BUN 9 Creatinine 0.4 L Estimated GFR > 60 BUN/Creatinine Ratio 23 Glucose 108 H Calcium 8.2 L Total Bilirubin 0.20 AST 79 H ALT 112 H Alkaline Phosphatase 107 Total Protein 5.4 L Albumin 2.9 L Albumin/Globulin Ratio 1.2 Medications & Allergies - Medications Allergies/Adverse Reactions: Allergies No Known Allergies Allergy (Verified 08/13/18 06:05) Home Medications: Home Medications Medication Instructions Recorded Confirmed Last Taken Type Hyoscyamine Subl [Levsin Sl 0.125 0.125 mg SL Q4HR PRN #20 tablet 08/11/18 08/13/18 Unknown Rx TAB] Ondansetron [Zofran ODT TAB] 8 mg PO Q8HR #10 tab.rapdis 08/11/18 08/13/18 Unknown Rx Active Medications: Generic Name Dose Route Start Last Admin Trade Name Freq PRN Reason Stop Dose Admin Acetaminophen/Hydrocodone Bitart 2 each 08/21/18 09:55 08/22/18 21:18 [place] 5/325 PO 2 each Q6H PRN Administration Pain, Moderate (4-6) Enoxaparin Sodium 40 mg 08/16/18 22:00 08/22/18 21:19 Lovenox SUB-Q 40 mg QDAY@2200 CK Administration Hydralazine HCl 5 mg 08/13/18 10:20 Apresoline IV Q30MIN PRN Hypertension Hydromorphone HCl 0.5 mg 08/15/18 15:52 08/20/18 20:52 Dilaudid IV 0.5 mg Q3H PRN Administration Pain , Severe (7-10) Ketorolac Tromethamine 30 mg 08/18/18 16:00 08/22/18 22:05 Toradol IV 08/23/18 15:59 Not Given Q6H CK Lorazepam 2 mg 08/13/18 10:20 Ativan IV Q4H PRN Agitation Ondansetron HCl 4 mg 08/17/18 10:14 Zofran IV Q6H PRN Nausea And Vomiting
--- NOTE | 2018-08-23 16:55 | Progress Note ---
Assessment and Plan Assessment and plan: 63-year-old male w/o any PMH presented to the emergency room with complaints of abdominal pain, CT abdomen showed a large bowel obstruction however he refused admission to the hospital. but Patient came back in 2 dys with worsening abdominal distention along with N/V, GS consulted, s/p s/p left hemicolectomy on 08/15/18 . Biopsy result adenocarcinoma colon IIIC --Large Bowel obstruction: Present on admission s/p Open left hemicolectomy with primary anastomosis 08/15/18 and splenic flexure mobilization, --Colon cancer /adenocarcinoma colon/probably stage III C Oncologist following, need port placement --Hypokalemia; corrected --DVt prophylaxis, SCDs, Increase ambulation as tolerated Possible discharge in 1-2 days if stable Plan of care is reviewed with the patient and his nurse History Interval history: Patient seen and examined medical records reviewed Patient feels better no new complaints Vital signs noted Alert awake oriented 3, no acute distress Hospitalist Physical - Constitutional Vitals: Temp Pulse Resp BP Pulse Ox 98.0 F 80 20 133/72 100 08/23/18 11:09 08/23/18 11:09 08/23/18 11:09 08/23/18 11:09 08/23/18 11:09 General appearance: Present: no acute distress, well-nourished - EENT Eyes: Present: PERRL, EOM intact - Neck Neck: Present: supple, normal ROM - Respiratory Respiratory effort: normal Respiratory: negative: rales, rhonchi, wheezing - Cardiovascular Rhythm: regular Heart Sounds: Present: S1 & S2 - Extremities Extremities: no ischemia, No edema - Abdominal General gastrointestinal: soft, non-tender, non-distended, normal bowel sounds, other (surgical scars intact) - Integumentary Integumentary: Present: clear, warm - Psychiatric Psychiatric: appropriate mood/affect, cooperative - Neurologic Neurologic: CNII-XII intact, moves all extremities Results - Labs CBC & Chem 7: 08/23/18 03:48 08/23/18 03:48 Labs: Laboratory Last Values WBC 6.9 K/mm3 (4.5-11.0) 08/23/18 03:48 RBC 3.36 M/mm3 (3.65-5.03) L 08/23/18 03:48 Hgb 9.6 gm/dl (11.8-15.2) L 08/23/18 03:48 Hct 28.1 % (35.5-45.6) L 08/23/18 03:48 MCV 84 fl (84-94) 08/23/18 03:48 MCH 29 pg (28-32) 08/23/18 03:48 MCHC 34 % (32-34) 08/23/18 03:48 RDW 14.9 % (13.2-15.2) 08/23/18 03:48 Plt Count 251 K/mm3 (140-440) 08/23/18 03:48 Lymph % (Auto) 14.3 % (13.4-35.0) 08/23/18 03:48 [place] % (Auto) 8.3 % (0.0-7.3) H 08/23/18 03:48 Eos % (Auto) 0.9 % (0.0-4.3) 08/23/18 03:48 Baso % (Auto) 0.6 % (0.0-1.8) 08/23/18 03:48 Lymph # 1.0 K/mm3 (1.2-5.4) L 08/23/18 03:48 [place] # 0.6 K/mm3 (0.0-0.8) 08/23/18 03:48 Eos # 0.1 K/mm3 (0.0-0.4) 08/23/18 03:48 Baso # 0.0 K/mm3 (0.0-0.1) 08/23/18 03:48 Add Manual Diff Complete 08/15/18 05:18 Total Counted 100 08/15/18 05:18 Seg Neutrophils % 75.9 % (40.0-70.0) H 08/23/18 03:48 Seg Neuts % (Manual) 58.0 % (40.0-70.0) 08/15/18 05:18 Band Neutrophils % 6.0 % 08/15/18 05:18 Lymphocytes % (Manual) 19.0 % (13.4-35.0) 08/15/18 05:18 Reactive Lymphs % (Man) 0 % 08/15/18 05:18 Monocytes % (Manual) 13.0 % (0.0-7.3) H 08/15/18 05:18 Eosinophils % (Manual) 4.0 % (0.0-4.3) 08/15/18 05:18 Basophils % (Manual) 0 % (0.0-1.8) 08/15/18 05:18 Metamyelocytes % 0 % 08/15/18 05:18 Myelocytes % 0 % 08/15/18 05:18 Promyelocytes % 0 % 08/15/18 05:18 Blast Cells % 0 % 08/15/18 05:18 Nucleated RBC % Not Reportable 08/15/18 05:18 Seg Neutrophils # 5.2 K/mm3 (1.8-7.7) 08/23/18 03:48 Seg Neutrophils # Man 1.9 K/mm3 (1.8-7.7) 08/15/18 05:18 Band Neutrophils # 0.2 K/mm3 08/15/18 05:18 Lymphocytes # (Manual) 0.6 K/mm3 (1.2-5.4) L 08/15/18 05:18 Abs React Lymphs (Man) 0.0 K/mm3 08/15/18 05:18 Monocytes # (Manual) 0.4 K/mm3 (0.0-0.8) 08/15/18 05:18 Eosinophils # (Manual) 0.1 K/mm3 (0.0-0.4) 08/15/18 05:18 Basophils # (Manual) 0.0 K/mm3 (0.0-0.1) 08/15/18 05:18 Metamyelocytes # 0.0 K/mm3 08/15/18 05:18 Myelocytes # 0.0 K/mm3 08/15/18 05:18 Promyelocytes # 0.0 K/mm3 08/15/18 05:18 Blast Cells # 0.0 K/mm3 08/15/18 05:18 WBC Morphology Not Reportable 08/15/18 05:18 Hypersegmented Neuts Not Reportable 08/15/18 05:18 Hyposegmented Neuts Not Reportable 08/15/18 05:18 Hypogranular Neuts Not Reportable 08/15/18 05:18 Smudge Cells Not Reportable 08/15/18 05:18 Toxic Granulation Not Reportable 08/15/18 05:18 Toxic Vacuolation Not Reportable 08/15/18 05:18 Dohle Bodies Not Reportable 08/15/18 05:18 Pelger-Huet Anomaly Not Reportable 08/15/18 05:18 Emy Rods Not Reportable 08/15/18 05:18 Platelet Estimate Consistent w auto 08/15/18 05:18 Clumped Platelets Not Reportable 08/15/18 05:18 Plt Clumps, EDTA Not Reportable 08/15/18 05:18 Large Platelets Not Reportable 08/15/18 05:18 Giant Platelets Not Reportable 08/15/18 05:18 Platelet Satelliting Not Reportable 08/15/18 05:18 Plt Morphology Comment Not Reportable 08/15/18 05:18 RBC Morphology Not Reportable 08/15/18 05:18 Dimorphic RBCs Not Reportable 08/15/18 05:18 Polychromasia Not Reportable 08/15/18 05:18 Hypochromasia Not Reportable 08/15/18 05:18 Poikilocytosis Not Reportable 08/15/18 05:18 Anisocytosis Few 08/15/18 05:18 Microcytosis Not Reportable 08/15/18 05:18 Macrocytosis Not Reportable 08/15/18 05:18 Spherocytes Not Reportable 08/15/18 05:18 Pappenheimer Bodies Not Reportable 08/15/18 05:18 Sickle Cells Not Reportable 08/15/18 05:18 Target Cells Not Reportable 08/15/18 05:18 Tear Drop Cells Not Reportable 08/15/18 05:18 Ovalocytes Rare 08/15/18 05:18 Helmet Cells Not Reportable 08/15/18 05:18 [place] Bodies Not Reportable 08/15/18 05:18 [place] Rings Not Reportable 08/15/18 05:18 [place] Cells Not Reportable 08/15/18 05:18 Bite Cells Not Reportable 08/15/18 05:18 Crenated Cell Not Reportable 08/15/18 05:18 Elliptocytes Not Reportable 08/15/18 05:18 Acanthocytes (Spur) Not Reportable 08/15/18 05:18 Rouleaux Not Reportable 08/15/18 05:18 Hemoglobin C Crystals Not Reportable 08/15/18 05:18 Schistocytes Not Reportable 08/15/18 05:18 Malaria parasites Not Reportable 08/15/18 05:18 Dannie Bodies Not Reportable 08/15/18 05:18 Hem Pathologist Commnt No 08/15/18 05:18 Sodium 137 mmol/L (137-145) 08/23/18 03:48 Potassium 3.2 mmol/L (3.6-5.0) L 08/23/18 03:48 Chloride 100.6 mmol/L (98-107) 08/23/18 03:48 Carbon Dioxide 25 mmol/L (22-30) 08/23/18 03:48 Anion Gap 15 mmol/L 08/23/18 03:48 BUN 9 mg/dL (9-20) 08/23/18 03:48 Creatinine 0.4 mg/dL (0.8-1.5) L 08/23/18 03:48 Estimated GFR > 60 ml/min 08/23/18 03:48 BUN/Creatinine Ratio 23 % 08/23/18 03:48 Glucose 108 mg/dL (75-100) H 08/23/18 03:48 Lactic Acid 0.70 mmol/L (0.7-2.0) 08/13/18 07:32 Calcium 8.2 mg/dL (8.4-10.2) L 08/23/18 03:48 Phosphorus 2.50 mg/dL (2.5-4.5) 08/18/18 05:49 Magnesium 1.80 mg/dL (1.7-2.3) 08/18/18 05:49 Total Bilirubin 0.20 mg/dL (0.1-1.2) 08/23/18 03:48 AST 79 units/L (5-40) H 08/23/18 03:48 ALT 112 units/L (7-56) H 08/23/18 03:48 Alkaline Phosphatase 107 units/L (35-129) 08/23/18 03:48 Total Protein 5.4 g/dL (6.3-8.2) L 08/23/18 03:48 Albumin 2.9 g/dL (3.9-5) L 08/23/18 03:48 Albumin/Globulin Ratio 1.2 % 08/23/18 03:48 Lipase 12 units/L (13-60) L 08/13/18 06:09 Carcinoembryonic Ag See scanned report 08/13/18 11:39 Urine Color [place] (Yellow) 08/13/18 Unknown Urine Turbidity Hazy (Clear) 08/13/18 Unknown Urine pH 5.0 (5.0-7.0) 08/13/18 Unknown Ur Specific [place] 1.036 (1.003-1.030) H 08/13/18 Unknown Urine Protein 30 mg/dl mg/dL (Negative) 08/13/18 Unknown Urine Glucose (UA) Neg mg/dL (Negative) 08/13/18 Unknown Urine Ketones 80 mg/dL (Negative) 08/13/18 Unknown Urine Blood Mod (Negative) 08/13/18 Unknown Urine Nitrite Neg (Negative) 08/13/18 Unknown Urine Bilirubin Neg (Negative) 08/13/18 Unknown Urine Urobilinogen 4.0 mg/dL (<2.0) 08/13/18 Unknown Ur Leukocyte Esterase Neg (Negative) 08/13/18 Unknown Urine WBC (Auto) 3.0 /HPF (0.0-6.0) 08/13/18 Unknown Urine RBC (Auto) 28.0 /HPF (0.0-6.0) 08/13/18 Unknown U Epithel Cells (Auto) < 1.0 /HPF (0-13.0) 08/13/18 Unknown Urine Mucus 3+ /HPF 08/13/18 Unknown Nutrition/Malnutrition Assess - Dietary Evaluation Nutrition/Malnutrition Findings: Nutrition Notes Start: 08/20/18 14:18 Freq: Status: Active Protocol: Document 08/22/18 12:46 LM (Rec: 08/22/18 13:18 LM [id number]) Co-Sign 08/22/18 12:46 LP Nutrition Notes Initial or Follow up Reassessment Other Pertinent Diagnosis Abdominal surgical wound, Large bowel obstruction, S/P left hemicolectomy Current Diet GI soft Labs/Tests Reviewed Pertinent Medications Reviewed Height 5 ft 9 in Weight 95.6 kg [place] Body Weight (lbs) 160.0 BMI 31.1 Subjective/Other Information Pt stated that he has a good appetite now. Pt ate 75% of his breakfast. Percent of energy/protein needs met: 91%/71% Burn Absent Trauma Absent #1 Nutrition Diagnosis Altered GI function Diagnosis Progress(for reassessment Continues documentation) Is patient on ventilator? No Is Patient Ambulatory and/or Out of Bed Yes REE-([place]-ambulatory/OOB) [ 2276.794 NUTR.MSJOOB] Calculation Used for Recommendations [place] Additional Notes Protein Needs: 114-143g (1.2-1 .5g/kg) Fluid Needs: 1 ml/kcal Nutrition Intervention Change Diet Order: Continue GI soft Add Supplement/Snack (indicate name/kcal Ensure Enlive vanilla BID /protein ) Provides kCal: 700 Provides Protein (gm) 40 Goal #1 Meet at least 75% of energy and preotein needs Anticipated Discharge Needs: Unable to determine at this time Follow-Up By: 08/26/18 Additional Comments F/U for PO intakes
[2018-08-23] MEDS: LOVENOX SUB-Q SCH (21:34)
[2018-08-23] MEDS: DILAUDID IV PRN (21:36)
--- NOTE | 2018-08-24 12:47 | Progress Note ---
Assessment and Plan Assessment and plan: 63-year-old male w/o any PMH presented to the emergency room with complaints of abdominal pain, CT abdomen showed a large bowel obstruction however he refused admission to the hospital. but Patient came back in 2 dys with worsening abdominal distention along with N/V, GS consulted, s/p s/p left hemicolectomy on 08/15/18 . Biopsy result adenocarcinoma colon IIIC --Large Bowel obstruction: Present on admission s/p Open left hemicolectomy with primary anastomosis 08/15/18 and splenic flexure mobilization, --Colon cancer /adenocarcinoma colon/probably stage III C Oncologist following, onc advised port placement. Patient refused --Hypokalemia; corrected --DVt prophylaxis, SCDs, Increase ambulation as tolerated Possible discharge in 1-2 days if stable Plan of care is reviewed with the patient and his nurse History Interval history: Patient seen and examined medical records reviewed No new events reported by the nursing Patient feels better ambulate treat tolerating oral nutrition Hematology oncology evaluated the patient recommend outpatient follow-up for possible chemotherapy Recommended port placement prior to discharge However patient refused Hospitalist Physical - Constitutional Vitals: Temp Pulse Resp BP Pulse Ox 98.1 F 81 19 114/65 97 08/24/18 07:17 08/24/18 07:17 08/24/18 07:17 08/24/18 07:17 08/24/18 07:17 General appearance: Present: no acute distress, well-nourished - EENT Eyes: Present: PERRL, EOM intact - Neck Neck: Present: supple, normal ROM - Respiratory Respiratory effort: normal Respiratory: bilateral: diminished, negative: rales, rhonchi, wheezing - Cardiovascular Rhythm: regular Heart Sounds: Present: S1 & S2 - Extremities Extremities: no ischemia, No edema - Abdominal General gastrointestinal: soft, non-tender, non-distended, normal bowel sounds, other (surgical scar clean) - Integumentary Integumentary: Present: clear, warm - Psychiatric Psychiatric: appropriate mood/affect, cooperative - Neurologic Neurologic: CNII-XII intact, moves all extremities Results - Labs CBC & Chem 7: 08/23/18 03:48 08/23/18 03:48 Labs: Laboratory Last Values WBC 6.9 K/mm3 (4.5-11.0) 08/23/18 03:48 RBC 3.36 M/mm3 (3.65-5.03) L 08/23/18 03:48 Hgb 9.6 gm/dl (11.8-15.2) L 08/23/18 03:48 Hct 28.1 % (35.5-45.6) L 08/23/18 03:48 MCV 84 fl (84-94) 08/23/18 03:48 MCH 29 pg (28-32) 08/23/18 03:48 MCHC 34 % (32-34) 08/23/18 03:48 RDW 14.9 % (13.2-15.2) 08/23/18 03:48 Plt Count 251 K/mm3 (140-440) 08/23/18 03:48 Lymph % (Auto) 14.3 % (13.4-35.0) 08/23/18 03:48 [place] % (Auto) 8.3 % (0.0-7.3) H 08/23/18 03:48 Eos % (Auto) 0.9 % (0.0-4.3) 08/23/18 03:48 Baso % (Auto) 0.6 % (0.0-1.8) 08/23/18 03:48 Lymph # 1.0 K/mm3 (1.2-5.4) L 08/23/18 03:48 [place] # 0.6 K/mm3 (0.0-0.8) 08/23/18 03:48 Eos # 0.1 K/mm3 (0.0-0.4) 08/23/18 03:48 Baso # 0.0 K/mm3 (0.0-0.1) 08/23/18 03:48 Add Manual Diff Complete 08/15/18 05:18 Total Counted 100 08/15/18 05:18 Seg Neutrophils % 75.9 % (40.0-70.0) H 08/23/18 03:48 Seg Neuts % (Manual) 58.0 % (40.0-70.0) 08/15/18 05:18 Band Neutrophils % 6.0 % 08/15/18 05:18 Lymphocytes % (Manual) 19.0 % (13.4-35.0) 08/15/18 05:18 Reactive Lymphs % (Man) 0 % 08/15/18 05:18 Monocytes % (Manual) 13.0 % (0.0-7.3) H 08/15/18 05:18 Eosinophils % (Manual) 4.0 % (0.0-4.3) 08/15/18 05:18 Basophils % (Manual) 0 % (0.0-1.8) 08/15/18 05:18 Metamyelocytes % 0 % 08/15/18 05:18 Myelocytes % 0 % 08/15/18 05:18 Promyelocytes % 0 % 08/15/18 05:18 Blast Cells % 0 % 08/15/18 05:18 Nucleated RBC % Not Reportable 08/15/18 05:18 Seg Neutrophils # 5.2 K/mm3 (1.8-7.7) 08/23/18 03:48 Seg Neutrophils # Man 1.9 K/mm3 (1.8-7.7) 08/15/18 05:18 Band Neutrophils # 0.2 K/mm3 08/15/18 05:18 Lymphocytes # (Manual) 0.6 K/mm3 (1.2-5.4) L 08/15/18 05:18 Abs React Lymphs (Man) 0.0 K/mm3 08/15/18 05:18 Monocytes # (Manual) 0.4 K/mm3 (0.0-0.8) 08/15/18 05:18 Eosinophils # (Manual) 0.1 K/mm3 (0.0-0.4) 08/15/18 05:18 Basophils # (Manual) 0.0 K/mm3 (0.0-0.1) 08/15/18 05:18 Metamyelocytes # 0.0 K/mm3 08/15/18 05:18 Myelocytes # 0.0 K/mm3 08/15/18 05:18 Promyelocytes # 0.0 K/mm3 08/15/18 05:18 Blast Cells # 0.0 K/mm3 08/15/18 05:18 WBC Morphology Not Reportable 08/15/18 05:18 Hypersegmented Neuts Not Reportable 08/15/18 05:18 Hyposegmented Neuts Not Reportable 08/15/18 05:18 Hypogranular Neuts Not Reportable 08/15/18 05:18 Smudge Cells Not Reportable 08/15/18 05:18 Toxic Granulation Not Reportable 08/15/18 05:18 Toxic Vacuolation Not Reportable 08/15/18 05:18 Dohle Bodies Not Reportable 08/15/18 05:18 Pelger-Huet Anomaly Not Reportable 08/15/18 05:18 Emy Rods Not Reportable 08/15/18 05:18 Platelet Estimate Consistent w auto 08/15/18 05:18 Clumped Platelets Not Reportable 08/15/18 05:18 Plt Clumps, EDTA Not Reportable 08/15/18 05:18 Large Platelets Not Reportable 08/15/18 05:18 Giant Platelets Not Reportable 08/15/18 05:18 Platelet Satelliting Not Reportable 08/15/18 05:18 Plt Morphology Comment Not Reportable 08/15/18 05:18 RBC Morphology Not Reportable 08/15/18 05:18 Dimorphic RBCs Not Reportable 08/15/18 05:18 Polychromasia Not Reportable 08/15/18 05:18 Hypochromasia Not Reportable 08/15/18 05:18 Poikilocytosis Not Reportable 08/15/18 05:18 Anisocytosis Few 08/15/18 05:18 Microcytosis Not Reportable 08/15/18 05:18 Macrocytosis Not Reportable 08/15/18 05:18 Spherocytes Not Reportable 08/15/18 05:18 Pappenheimer Bodies Not Reportable 08/15/18 05:18 Sickle Cells Not Reportable 08/15/18 05:18 Target Cells Not Reportable 08/15/18 05:18 Tear Drop Cells Not Reportable 08/15/18 05:18 Ovalocytes Rare 08/15/18 05:18 Helmet Cells Not Reportable 08/15/18 05:18 [place] Bodies Not Reportable 08/15/18 05:18 [place] Rings Not Reportable 08/15/18 05:18 [place] Cells Not Reportable 08/15/18 05:18 Bite Cells Not Reportable 08/15/18 05:18 Crenated Cell Not Reportable 08/15/18 05:18 Elliptocytes Not Reportable 08/15/18 05:18 Acanthocytes (Spur) Not Reportable 08/15/18 05:18 Rouleaux Not Reportable 08/15/18 05:18 Hemoglobin C Crystals Not Reportable 08/15/18 05:18 Schistocytes Not Reportable 08/15/18 05:18 Malaria parasites Not Reportable 08/15/18 05:18 Dannie Bodies Not Reportable 08/15/18 05:18 Hem Pathologist Commnt No 08/15/18 05:18 Sodium 137 mmol/L (137-145) 08/23/18 03:48 Potassium 3.2 mmol/L (3.6-5.0) L 08/23/18 03:48 Chloride 100.6 mmol/L (98-107) 08/23/18 03:48 Carbon Dioxide 25 mmol/L (22-30) 08/23/18 03:48 Anion Gap 15 mmol/L 08/23/18 03:48 BUN 9 mg/dL (9-20) 08/23/18 03:48 Creatinine 0.4 mg/dL (0.8-1.5) L 08/23/18 03:48 Estimated GFR > 60 ml/min 08/23/18 03:48 BUN/Creatinine Ratio 23 % 08/23/18 03:48 Glucose 108 mg/dL (75-100) H 08/23/18 03:48 Lactic Acid 0.70 mmol/L (0.7-2.0) 08/13/18 07:32 Calcium 8.2 mg/dL (8.4-10.2) L 08/23/18 03:48 Phosphorus 2.50 mg/dL (2.5-4.5) 08/18/18 05:49 Magnesium 1.80 mg/dL (1.7-2.3) 08/18/18 05:49 Total Bilirubin 0.20 mg/dL (0.1-1.2) 08/23/18 03:48 AST 79 units/L (5-40) H 08/23/18 03:48 ALT 112 units/L (7-56) H 08/23/18 03:48 Alkaline Phosphatase 107 units/L (35-129) 08/23/18 03:48 Total Protein 5.4 g/dL (6.3-8.2) L 08/23/18 03:48 Albumin 2.9 g/dL (3.9-5) L 08/23/18 03:48 Albumin/Globulin Ratio 1.2 % 08/23/18 03:48 Lipase 12 units/L (13-60) L 08/13/18 06:09 Carcinoembryonic Ag See scanned report 08/13/18 11:39 Urine Color [place] (Yellow) 08/13/18 Unknown Urine Turbidity Hazy (Clear) 08/13/18 Unknown Urine pH 5.0 (5.0-7.0) 08/13/18 Unknown Ur Specific [place] 1.036 (1.003-1.030) H 08/13/18 Unknown Urine Protein 30 mg/dl mg/dL (Negative) 08/13/18 Unknown Urine Glucose (UA) Neg mg/dL (Negative) 08/13/18 Unknown Urine Ketones 80 mg/dL (Negative) 08/13/18 Unknown Urine Blood Mod (Negative) 08/13/18 Unknown Urine Nitrite Neg (Negative) 08/13/18 Unknown Urine Bilirubin Neg (Negative) 08/13/18 Unknown Urine Urobilinogen 4.0 mg/dL (<2.0) 08/13/18 Unknown Ur Leukocyte Esterase Neg (Negative) 08/13/18 Unknown Urine WBC (Auto) 3.0 /HPF (0.0-6.0) 08/13/18 Unknown Urine RBC (Auto) 28.0 /HPF (0.0-6.0) 08/13/18 Unknown U Epithel Cells (Auto) < 1.0 /HPF (0-13.0) 08/13/18 Unknown Urine Mucus 3+ /HPF 08/13/18 Unknown Nutrition/Malnutrition Assess - Dietary Evaluation Nutrition/Malnutrition Findings: Nutrition Notes Start: 08/20/18 14:18 Freq: Status: Active Protocol: Document 08/22/18 12:46 LM (Rec: 08/22/18 13:18 LM [id number]) Co-Sign 08/22/18 12:46 LP Nutrition Notes Initial or Follow up Reassessment Other Pertinent Diagnosis Abdominal surgical wound, Large bowel obstruction, S/P left hemicolectomy Current Diet GI soft Labs/Tests Reviewed Pertinent Medications Reviewed Height 5 ft 9 in Weight 95.6 kg [place] Body Weight (lbs) 160.0 BMI 31.1 Subjective/Other Information Pt stated that he has a good appetite now. Pt ate 75% of his breakfast. Percent of energy/protein needs met: 91%/71% Burn Absent Trauma Absent #1 Nutrition Diagnosis Altered GI function Diagnosis Progress(for reassessment Continues documentation) Is patient on ventilator? No Is Patient Ambulatory and/or Out of Bed Yes REE-([facility]-ambulatory/OOB) [ 2276.794 NUTR.MSJOOB] Calculation Used for Recommendations [facility] Additional Notes Protein Needs: 114-143g (1.2-1 .5g/kg) Fluid Needs: 1 ml/kcal Nutrition Intervention Change Diet Order: Continue GI soft Add Supplement/Snack (indicate name/kcal Ensure Enlive vanilla BID /protein ) Provides kCal: 700 Provides Protein (gm) 40 Goal #1 Meet at least 75% of energy and preotein needs Anticipated Discharge Needs: Unable to determine at this time Follow-Up By: 08/26/18 Additional Comments F/U for PO intakes
[2018-08-24] MEDS: NORCO 5/325 PO PRN (21:46)
[2018-08-24] MEDS: LOVENOX SUB-Q SCH (21:47)
--- NOTE | 2018-08-25 08:05 | Hem/Onc Progress Note ---
Assessment and Plan 1. Colon cancer adenocarcinoma. IIIC - will review as OP 2. CEA is surprisingly not elevated. 3. The patient is postop. 4. PET CT will help as an outpatient. 5. Electrolyte issues. 6. The patient would need port placement as most likely chemotherapy options will be looked into. We will also look into genetic testing as an outpatient. 7. Mild anemia, we will follow. B12 level is on the low normal side. 08/23/18 - mma level - will look into b12 inj - pt says he does not want anything now d/w pt reg need for chemo - port placement later anemia - will follow abn LFTs 08/25/2018 - d/w dr Judge sutures - followed by Surgical team - Patient Problems (1) Colon cancer Current Visit: Yes Status: Acute Subjective Date of service: 08/25/18 Principal diagnosis: colon ca Interval history: pt says doing better as per RN - discharge from sutures Objective - Constitutional Vitals: Last Vital Signs Temp 98.6 F 08/25/18 07:26 Pulse 84 08/25/18 07:26 Resp 19 08/25/18 07:26 BP 115/72 08/25/18 07:26 Pulse Ox 97 08/25/18 07:26 Pain Intensity (0-10): denies any pain General appearance: no acute distress Performance status: 2- selfcare, ambulatory - EENT Eyes: EOM intact ENT: clear oral mucosa Lymph node exam: negative cervical, negative supraclavicular - Neck Neck: normal ROM - Respiratory Respiratory effort: Positive: normal Respiratory: bilateral: CTA - Cardiovascular Heart Sounds: Present: S1 & S2 Extremities: No edema - Gastrointestinal General gastrointestinal: Present: soft, other (suture) Rectal Exam: deferred - Genitourinary Male genitourinary: Present: deferred - Integumentary Integumentary: warm - Musculoskeletal Musculoskeletal: strength equal bilaterally - Neurologic Neurologic: moves all extremities Medications & Allergies - Medications Allergies/Adverse Reactions: Allergies No Known Allergies Allergy (Verified 08/13/18 06:05) Home Medications: Home Medications Medication Instructions Recorded Confirmed Last Taken Type Hyoscyamine Subl [Levsin Sl 0.125 0.125 mg SL Q4HR PRN #20 tablet 08/11/18 08/13/18 Unknown Rx TAB] Ondansetron [Zofran ODT TAB] 8 mg PO Q8HR #10 tab.rapdis 08/11/18 08/13/18 Unknown Rx Active Medications: Generic Name Dose Route Start Last Admin Trade Name Freq PRN Reason Stop Dose Admin Acetaminophen/Hydrocodone Bitart 2 each 08/21/18 09:55 08/24/18 21:46 [place] 5/325 PO 2 each Q6H PRN Administration Pain, Moderate (4-6) Enoxaparin Sodium 40 mg 08/16/18 22:00 08/24/18 21:47 Lovenox SUB-Q 40 mg QDAY@2200 CK Administration Hydralazine HCl 5 mg 08/13/18 10:20 Apresoline IV Q30MIN PRN Hypertension Hydromorphone HCl 0.5 mg 08/15/18 15:52 08/23/18 21:36 Dilaudid IV 0.5 mg Q3H PRN Administration Pain , Severe (7-10) Lorazepam 2 mg 08/13/18 10:20 Ativan IV Q4H PRN Agitation Ondansetron HCl 4 mg 08/17/18 10:14 Zofran IV Q6H PRN Nausea And Vomiting
--- NOTE | 2018-08-25 16:05 | Event Note ---
Date: 08/25/18 Called by nursing staff that patient had some bleeding from the incision this morning. He reports that he is doing very well. He is getting stronger. He had one episode of blood from the lower part of the incision. It has not drained since that time. Incision is clean, dry, intact. I was not able to express any fluid from the incision. Perhaps it was fluid accumulated underneath incision and then finally came out. No need for a dressing unless he continues to drain fluid. He is still cleared for discharge from my standpoint. Please call with any questions.
--- NOTE | 2018-08-25 17:52 | Progress Note ---
Assessment and Plan Assessment and plan: 63-year-old male w/o any PMH presented to the emergency room with complaints of abdominal pain, CT abdomen showed a large bowel obstruction however he refused admission to the hospital. but Patient came back in 2 dys with worsening abdominal distention along with N/V, GS consulted, s/p s/p left hemicolectomy on 08/15/18 . Biopsy result adenocarcinoma colon IIIC --Large Bowel obstruction: Present on admission s/p Open left hemicolectomy with primary anastomosis 08/15/18 and splenic flexure mobilization, --Colon cancer /adenocarcinoma colon/probably stage III C Oncologist following, onc advised port placement. Patient refused --Hypokalemia; corrected --DVt prophylaxis, SCDs, Increase ambulation as tolerated Surgery cleared for discharge Possible discharge home tomorrow if stable History Interval history: Patient seen and examined this afternoon medical records reviewed The patient feels better new complaints Had mild bleeding from the surgical scar, resolved has evaluated the patient and cleared for discharge Echo oriented 3 not in acute distress Hospitalist Physical - Constitutional Vitals: Temp Pulse Resp BP Pulse Ox 98.2 F 90 18 121/65 99 08/25/18 15:30 08/25/18 15:30 08/25/18 15:30 08/25/18 15:30 08/25/18 15:30 General appearance: Present: no acute distress, well-nourished - EENT Eyes: Present: PERRL, EOM intact - Neck Neck: Present: supple, normal ROM - Respiratory Respiratory effort: normal Respiratory: bilateral: diminished, negative: rales, rhonchi, wheezing - Cardiovascular Rhythm: regular Heart Sounds: Present: S1 & S2 - Extremities Extremities: no ischemia, No edema - Abdominal General gastrointestinal: soft, non-tender, non-distended, normal bowel sounds - Integumentary Integumentary: Present: clear, warm - Psychiatric Psychiatric: appropriate mood/affect, cooperative - Neurologic Neurologic: CNII-XII intact, moves all extremities Results - Labs CBC & Chem 7: 08/23/18 03:48 08/23/18 03:48 Labs: Laboratory Last Values WBC 6.9 K/mm3 (4.5-11.0) 08/23/18 03:48 RBC 3.36 M/mm3 (3.65-5.03) L 08/23/18 03:48 Hgb 9.6 gm/dl (11.8-15.2) L 08/23/18 03:48 Hct 28.1 % (35.5-45.6) L 08/23/18 03:48 MCV 84 fl (84-94) 08/23/18 03:48 MCH 29 pg (28-32) 08/23/18 03:48 MCHC 34 % (32-34) 08/23/18 03:48 RDW 14.9 % (13.2-15.2) 08/23/18 03:48 Plt Count 251 K/mm3 (140-440) 08/23/18 03:48 Lymph % (Auto) 14.3 % (13.4-35.0) 08/23/18 03:48 [place] % (Auto) 8.3 % (0.0-7.3) H 08/23/18 03:48 Eos % (Auto) 0.9 % (0.0-4.3) 08/23/18 03:48 Baso % (Auto) 0.6 % (0.0-1.8) 08/23/18 03:48 Lymph # 1.0 K/mm3 (1.2-5.4) L 08/23/18 03:48 [place] # 0.6 K/mm3 (0.0-0.8) 08/23/18 03:48 Eos # 0.1 K/mm3 (0.0-0.4) 08/23/18 03:48 Baso # 0.0 K/mm3 (0.0-0.1) 08/23/18 03:48 Add Manual Diff Complete 08/15/18 05:18 Total Counted 100 08/15/18 05:18 Seg Neutrophils % 75.9 % (40.0-70.0) H 08/23/18 03:48 Seg Neuts % (Manual) 58.0 % (40.0-70.0) 08/15/18 05:18 Band Neutrophils % 6.0 % 08/15/18 05:18 Lymphocytes % (Manual) 19.0 % (13.4-35.0) 08/15/18 05:18 Reactive Lymphs % (Man) 0 % 08/15/18 05:18 Monocytes % (Manual) 13.0 % (0.0-7.3) H 08/15/18 05:18 Eosinophils % (Manual) 4.0 % (0.0-4.3) 08/15/18 05:18 Basophils % (Manual) 0 % (0.0-1.8) 08/15/18 05:18 Metamyelocytes % 0 % 08/15/18 05:18 Myelocytes % 0 % 08/15/18 05:18 Promyelocytes % 0 % 08/15/18 05:18 Blast Cells % 0 % 08/15/18 05:18 Nucleated RBC % Not Reportable 08/15/18 05:18 Seg Neutrophils # 5.2 K/mm3 (1.8-7.7) 08/23/18 03:48 Seg Neutrophils # Man 1.9 K/mm3 (1.8-7.7) 08/15/18 05:18 Band Neutrophils # 0.2 K/mm3 08/15/18 05:18 Lymphocytes # (Manual) 0.6 K/mm3 (1.2-5.4) L 08/15/18 05:18 Abs React Lymphs (Man) 0.0 K/mm3 08/15/18 05:18 Monocytes # (Manual) 0.4 K/mm3 (0.0-0.8) 08/15/18 05:18 Eosinophils # (Manual) 0.1 K/mm3 (0.0-0.4) 08/15/18 05:18 Basophils # (Manual) 0.0 K/mm3 (0.0-0.1) 08/15/18 05:18 Metamyelocytes # 0.0 K/mm3 08/15/18 05:18 Myelocytes # 0.0 K/mm3 08/15/18 05:18 Promyelocytes # 0.0 K/mm3 08/15/18 05:18 Blast Cells # 0.0 K/mm3 08/15/18 05:18 WBC Morphology Not Reportable 08/15/18 05:18 Hypersegmented Neuts Not Reportable 08/15/18 05:18 Hyposegmented Neuts Not Reportable 08/15/18 05:18 Hypogranular Neuts Not Reportable 08/15/18 05:18 Smudge Cells Not Reportable 08/15/18 05:18 Toxic Granulation Not Reportable 08/15/18 05:18 Toxic Vacuolation Not Reportable 08/15/18 05:18 Dohle Bodies Not Reportable 08/15/18 05:18 Pelger-Huet Anomaly Not Reportable 08/15/18 05:18 Emy Rods Not Reportable 08/15/18 05:18 Platelet Estimate Consistent w auto 08/15/18 05:18 Clumped Platelets Not Reportable 08/15/18 05:18 Plt Clumps, EDTA Not Reportable 08/15/18 05:18 Large Platelets Not Reportable 08/15/18 05:18 Giant Platelets Not Reportable 08/15/18 05:18 Platelet Satelliting Not Reportable 08/15/18 05:18 Plt Morphology Comment Not Reportable 08/15/18 05:18 RBC Morphology Not Reportable 08/15/18 05:18 Dimorphic RBCs Not Reportable 08/15/18 05:18 Polychromasia Not Reportable 08/15/18 05:18 Hypochromasia Not Reportable 08/15/18 05:18 Poikilocytosis Not Reportable 08/15/18 05:18 Anisocytosis Few 08/15/18 05:18 Microcytosis Not Reportable 08/15/18 05:18 Macrocytosis Not Reportable 08/15/18 05:18 Spherocytes Not Reportable 08/15/18 05:18 Pappenheimer Bodies Not Reportable 08/15/18 05:18 Sickle Cells Not Reportable 08/15/18 05:18 Target Cells Not Reportable 08/15/18 05:18 Tear Drop Cells Not Reportable 08/15/18 05:18 Ovalocytes Rare 08/15/18 05:18 Helmet Cells Not Reportable 08/15/18 05:18 [employer] Bodies Not Reportable 08/15/18 05:18 [place] Rings Not Reportable 08/15/18 05:18 [place] Cells Not Reportable 08/15/18 05:18 Bite Cells Not Reportable 08/15/18 05:18 Crenated Cell Not Reportable 08/15/18 05:18 Elliptocytes Not Reportable 08/15/18 05:18 Acanthocytes (Spur) Not Reportable 08/15/18 05:18 Rouleaux Not Reportable 08/15/18 05:18 Hemoglobin C Crystals Not Reportable 08/15/18 05:18 Schistocytes Not Reportable 08/15/18 05:18 Malaria parasites Not Reportable 08/15/18 05:18 Dannie Bodies Not Reportable 08/15/18 05:18 Hem Pathologist Commnt No 08/15/18 05:18 Sodium 137 mmol/L (137-145) 08/23/18 03:48 Potassium 3.2 mmol/L (3.6-5.0) L 08/23/18 03:48 Chloride 100.6 mmol/L (98-107) 08/23/18 03:48 Carbon Dioxide 25 mmol/L (22-30) 08/23/18 03:48 Anion Gap 15 mmol/L 08/23/18 03:48 BUN 9 mg/dL (9-20) 08/23/18 03:48 Creatinine 0.4 mg/dL (0.8-1.5) L 08/23/18 03:48 Estimated GFR > 60 ml/min 08/23/18 03:48 BUN/Creatinine Ratio 23 % 08/23/18 03:48 Glucose 108 mg/dL (75-100) H 08/23/18 03:48 Lactic Acid 0.70 mmol/L (0.7-2.0) 08/13/18 07:32 Calcium 8.2 mg/dL (8.4-10.2) L 08/23/18 03:48 Phosphorus 2.50 mg/dL (2.5-4.5) 08/18/18 05:49 Magnesium 1.80 mg/dL (1.7-2.3) 08/18/18 05:49 Total Bilirubin 0.20 mg/dL (0.1-1.2) 08/23/18 03:48 AST 79 units/L (5-40) H 08/23/18 03:48 ALT 112 units/L (7-56) H 08/23/18 03:48 Alkaline Phosphatase 107 units/L (35-129) 08/23/18 03:48 Total Protein 5.4 g/dL (6.3-8.2) L 08/23/18 03:48 Albumin 2.9 g/dL (3.9-5) L 08/23/18 03:48 Albumin/Globulin Ratio 1.2 % 08/23/18 03:48 Lipase 12 units/L (13-60) L 08/13/18 06:09 Carcinoembryonic Ag See scanned report 08/13/18 11:39 Urine Color Velia (Yellow) 08/13/18 Unknown Urine Turbidity Hazy (Clear) 08/13/18 Unknown Urine pH 5.0 (5.0-7.0) 08/13/18 Unknown Ur Specific [place] 1.036 (1.003-1.030) H 08/13/18 Unknown Urine Protein 30 mg/dl mg/dL (Negative) 08/13/18 Unknown Urine Glucose (UA) Neg mg/dL (Negative) 08/13/18 Unknown Urine Ketones 80 mg/dL (Negative) 08/13/18 Unknown Urine Blood Mod (Negative) 08/13/18 Unknown Urine Nitrite Neg (Negative) 08/13/18 Unknown Urine Bilirubin Neg (Negative) 08/13/18 Unknown Urine Urobilinogen 4.0 mg/dL (<2.0) 08/13/18 Unknown Ur Leukocyte Esterase Neg (Negative) 08/13/18 Unknown Urine WBC (Auto) 3.0 /HPF (0.0-6.0) 08/13/18 Unknown Urine RBC (Auto) 28.0 /HPF (0.0-6.0) 08/13/18 Unknown U Epithel Cells (Auto) < 1.0 /HPF (0-13.0) 08/13/18 Unknown Urine Mucus 3+ /HPF 08/13/18 Unknown Nutrition/Malnutrition Assess - Dietary Evaluation Nutrition/Malnutrition Findings: Nutrition Notes Start: 08/20/18 14:18 Freq: Status: Active Protocol: Document 08/22/18 12:46 LM (Rec: 08/22/18 13:18 LM [id number]) Co-Sign 08/22/18 12:46 LP Nutrition Notes Initial or Follow up Reassessment Other Pertinent Diagnosis Abdominal surgical wound, Large bowel obstruction, S/P left hemicolectomy Current Diet GI soft Labs/Tests Reviewed Pertinent Medications Reviewed Height 5 ft 9 in Weight 95.6 kg [place] Body Weight (lbs) 160.0 BMI 31.1 Subjective/Other Information Pt stated that he has a good appetite now. Pt ate 75% of his breakfast. Percent of energy/protein needs met: 91%/71% Burn Absent Trauma Absent #1 Nutrition Diagnosis Altered GI function Diagnosis Progress(for reassessment Continues documentation) Is patient on ventilator? No Is Patient Ambulatory and/or Out of Bed Yes REE-(Makanda-. Jeor-ambulatory/OOB) [ 2276.794 NUTR.[id number]] Calculation Used for Recommendations [facility] Additional Notes Protein Needs: 114-143g (1.2-1 .5g/kg) Fluid Needs: 1 ml/kcal Nutrition Intervention Change Diet Order: Continue GI soft Add Supplement/Snack (indicate name/kcal Ensure Enlive vanilla BID /protein ) Provides kCal: 700 Provides Protein (gm) 40 Goal #1 Meet at least 75% of energy and preotein needs Anticipated Discharge Needs: Unable to determine at this time Follow-Up By: 08/26/18 Additional Comments F/U for PO intakes
[2018-08-25] MEDS: NORCO 5/325 PO PRN (21:44)
[2018-08-25] MEDS: LOVENOX SUB-Q SCH (21:48)
--- NOTE | 2018-08-26 07:58 | Hem/Onc Progress Note ---
Assessment and Plan 1. Colon cancer adenocarcinoma. IIIC - will review as OP 2. CEA is surprisingly not elevated. 3. The patient is postop. 4. PET CT will help as an outpatient. 5. Electrolyte issues. 6. The patient would need port placement as most likely chemotherapy options will be looked into. We will also look into genetic testing as an outpatient. 7. Mild anemia, we will follow. B12 level is on the low normal side. 08/23/18 - mma level - will look into b12 inj - pt says he does not want anything now d/w pt reg need for chemo - port placement later anemia - will follow abn LFTs 08/25/2018 - d/w dr Judge sutures - followed by Surgical team 08/26/2018 Port eval as OP - Patient Problems (1) Colon cancer Status: Acute Subjective Date of service: 08/26/18 Principal diagnosis: colon ca Objective - Constitutional Vitals: Last Vital Signs Temp 97.7 F 08/26/18 03:54 Pulse 84 08/26/18 03:54 Resp 16 08/26/18 03:54 BP 111/69 08/26/18 03:54 Pulse Ox 99 08/26/18 03:54 Pain Intensity (0-10): denies any pain General appearance: no acute distress Performance status: 3-limited selfcare - EENT Eyes: EOM intact ENT: clear oral mucosa Lymph node exam: negative cervical, negative supraclavicular - Neck Neck: normal ROM - Respiratory Respiratory effort: Positive: normal Respiratory: bilateral: CTA - Cardiovascular Heart Sounds: Present: S1 & S2 Extremities: No edema - Gastrointestinal General gastrointestinal: Present: soft, other (s/p sx) Rectal Exam: deferred - Genitourinary Male genitourinary: Present: deferred - Integumentary Integumentary: warm - Musculoskeletal Musculoskeletal: strength equal bilaterally - Neurologic Neurologic: moves all extremities Medications & Allergies - Medications Allergies/Adverse Reactions: Allergies No Known Allergies Allergy (Verified 08/13/18 06:05) Home Medications: Home Medications Medication Instructions Recorded Confirmed Last Taken Type Hyoscyamine Subl [Levsin Sl 0.125 0.125 mg SL Q4HR PRN #20 tablet 08/11/18 08/13/18 Unknown Rx TAB] Ondansetron [Zofran ODT TAB] 8 mg PO Q8HR #10 tab.rapdis 08/11/18 08/13/18 Unknown Rx HYDROcodone/APAP 5-325 [[place] 1 each PO BID PRN #10 tablet 08/26/18 Unknown Rx 5-325 mg TAB] Active Medications: Generic Name Dose Route Start Last Admin Trade Name Freq PRN Reason Stop Dose Admin Acetaminophen/Hydrocodone Bitart 2 each 08/21/18 09:55 08/25/18 21:44 [place] 5/325 PO 2 each Q6H PRN Administration Pain, Moderate (4-6) Enoxaparin Sodium 40 mg 08/16/18 22:00 08/25/18 21:48 Lovenox SUB-Q 40 mg QDAY@2200 CK Administration Hydralazine HCl 5 mg 08/13/18 10:20 Apresoline IV Q30MIN PRN Hypertension Hydromorphone HCl 0.5 mg 08/15/18 15:52 08/23/18 21:36 Dilaudid IV 0.5 mg Q3H PRN Administration Pain , Severe (7-10) Lorazepam 2 mg 08/13/18 10:20 Ativan IV Q4H PRN Agitation Ondansetron HCl 4 mg 08/17/18 10:14 Zofran IV Q6H PRN Nausea And Vomiting
[2018-08-26 08:00] LABS: Alanine Aminotransferase 119 units/L (7-56); Albumin 3.2 g/dL (3.9-5); BUN/Creatinine Ratio 18; Blood Urea Nitrogen 9 mg/dL (9-20); Calcium 8.6 mg/dL (8.4-10.2); Hemolysis Index 8
--- NOTE | 2018-08-26 10:51 | Discharge Summary ---
Providers - Providers Date of Admission: 08/13/18 07:59 Date of discharge: 08/26/18 Attending physician: TESSIE LOW 08/13/18 07:27 Consult to Physician [CONS] Routine Comment: DR MICHELE NOTIFIED [id number] Consulting Provider: ELISHA PECK Physician Instructions: Reason For Exam: lbo 08/13/18 09:54 Consult to Physician [CONS] Routine Comment: NOTIFIED PATRICK GARRISON Consulting Provider: MONA GONZALEZ Physician Instructions: Reason For Exam: colon obstruction 08/17/18 15:37 Physical Therapy Evaluation and Treat [CONS] Routine Comment: Reason For Exam: post op, deconditioning 08/21/18 08:22 Consult to Physician [CONS] Routine Comment: Consulting Provider: MARGO SNIDER Physician Instructions: Reason For Exam: colon cancer 08/25/18 17:53 Consult to Physician [CONS] Routine Comment: I spoke with Consulting Provider: MAURI CHAVEZ Physician Instructions: Reason For Exam: Port placement for chemotherapy Primary care physician: RO[employer]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 Hospitalization Reason for admission: abdominal pain Condition: Stable Pertinent studies: CT abdomen and pelvis; abnormal area of luminal narrowing in the descending colon, presence of stricture, inflammation malignant stricture could both present this manner, moderate obstruction, small hiatal hernia, nonspecific and diffuse enlargement of prostate Procedures: s/p Open left hemicolectomy with primary anastomosis 08/15/18 and splenic flexure mobilization, Biopsy report ;adenocarcinoma colon/probably stage III C Hospital course: 63-year-old male w/o any PMH presented to the emergency room with complaints of abdominal pain, CT abdomen showed a large bowel obstruction however he refused admission to the hospital. but Patient came back in 2 dys with worsening abdominal distention along with N/V, GS consulted, s/p s/p left hemicolectomy on 08/15/18 . Biopsy result adenocarcinoma colon IIIC Patient was subsequently evaluated by hematology oncologist, recommend port placement Possible chemotherapy as outpatient, however patient did not feel comfortable and refused the procedure IR Dr. Chavez was consultation for port placement, patient again refused Mild wound infection, surgeon has evaluated, advised dressing Cleared for discharge home with home health, follow-up per schedule upon discharge Today patient is comfortable Ambulatory and tolerating oral nutrition No new complaints Vital signs stable, physical examination unremarkable Hemodynamically and clinically stable at discharge Discharge diagnoses; --Large Bowel obstruction: Present on admission s/p Open left hemicolectomy with primary anastomosis 08/15/18 and splenic flexure mobilization, --Colon cancer /adenocarcinoma colon/probably stage III C Oncologist following, onc advised port placement. Patient refused --Hypokalemia; corrected Stable at discharge Disposition: DC/TX-06 HOME UNDER HOME HL Time spent for discharge: 32 min Core Measure Documentation - Palliative Care Palliative Care/ Comfort Measures: Not Applicable - Core Measures Any of the following diagnoses?: none Exam - Constitutional Vitals: Temp Pulse Resp BP Pulse Ox 97.2 F L 88 16 118/69 98 08/26/18 07:47 08/26/18 07:45 08/26/18 07:47 08/26/18 07:47 08/26/18 07:45 General appearance: Present: no acute distress, well-nourished - EENT Eyes: Present: PERRL, EOM intact - Neck Neck: Present: supple, normal ROM - Respiratory Respiratory effort: normal Respiratory: negative: rales, rhonchi, wheezing - Cardiovascular Rhythm: regular Heart Sounds: Present: S1 & S2 - Extremities Extremities: no ischemia, No edema - Abdominal General gastrointestinal: Present: soft, non-tender, non-distended, normal bowel sounds - Integumentary Integumentary: Present: clear, warm - Musculoskeletal Musculoskeletal: strength equal bilaterally - Psychiatric Psychiatric: appropriate mood/affect, cooperative - Neurologic Neurologic: CNII-XII intact, moves all extremities Plan Activity: advance as tolerated, fall precautions Diet: advance as tolerated (soft diet, advance as tolerated), other Additional Instructions: Wound care per instruction. Advised not to lift heavy weights. Follow-up, surgery, hematology oncology per schedule Follow up with: PRIMARY MD SHAYY [Primary Care Provider] - 7 Days ELISHA PECK MD [Staff Physician] - 7 Days MARGO SNIDER MD [Staff Physician] - 7 Days Prescriptions: HYDROcodone/APAP 5-325 [[place] 5-325 mg TAB] 1 each PO BID PRN #10 tablet PRN Reason: Pain, Moderate (4-6)
--- NOTE | 2018-08-26 13:28 | Event Note ---
Date: 08/26/18 He is 63 year male with new diagnosis of colon adenocarcinoma. Vascular surgery consult requested for port placement for chemotherapy outpatient. Spoke with him in detail about port placement. He declines placement of port during this hospitalization. He states "I need to recover from this (points to abdomen) and I'm ready to get out of the hospital. Again discussed with him, placing the port during current hospitalization would be simple process and could be done today. He could start his chemotherapy regimen with port would be better option for him. He again declined. I gave him card to follow up in office so can be scheduled for port placement outpatient. He acknowledged understanding.
[2018-08-26 17:06] VITALS: BP 144/70
== END 2018-08-26 18:24 | disposition home health service (06) | DRG 330 ==
LOC: ED 05:56 → 3B-SURG 07:59 → EEVIPCON 07:59
PROVIDERS: ADMIT Internal Medicine; ATTEND Internal Medicine
PROC: 0DTG0ZZ Resection of Left Large Intestine, Open Approach (ICD-10-PCS; principal; 2018-08-15)
PROC: 0D9670Z Drainage of Stomach with Drainage Device, Via Natural or Artificial Opening (ICD-10-PCS; 2018-08-18)
DX: C18.9 Malignant neoplasm of colon, unspecified (principal); K56.609 Unspecified intestinal obstruction, unspecified as to partial versus complete obstruction; D62 Acute posthemorrhagic anemia; R65.10 Systemic inflammatory response syndrome (SIRS) of non-infectious origin without acute organ dysfunction; J98.11 Atelectasis; K44.0 Diaphragmatic hernia with obstruction, without gangrene; K44.9 Diaphragmatic hernia without obstruction or gangrene; R10.9 Unspecified abdominal pain; E87.6 Hypokalemia; E86.0 Dehydration; E83.51 Hypocalcemia; Q53.9 Undescended testicle, unspecified; Z79.899 Other long term (current) drug therapy
CPT/HCPCS: 36415; 64450; 80048; 80053; 81001; 82140; 82378; 83690; 83735; 83921; 84100; 85007; 85014; 85018; 85025; 88309; 88341; 88342; 96374; G0378; J0295; J0610; J1100; J1170; J1650; J1885; J2250; J2270; J2405; J2704; J2710; J3010; J3480; J7030; J7042; J7120

== ENCOUNTER 2018-09-30 07:11 | Day surgery (SDC) | payer BC ==
[~2018-09-30 07:11] MED LIST: ANCEF/STERILE WATER 2 GM/20 ML 2 GM/20 ML SYRINGE IV NR; NACL 0.9% 1000 ML 1,000 ML IV SCH
[2018-09-30] MEDS ORDERED: VERSED IV NR (08:00)
[2018-09-30] MEDS ORDERED: PEPCID IV NR (08:00)
--- NOTE | 2018-09-30 08:30 | Anesthesia Day of Surgery ---
Anesthesia Day of Surgery - Day of Surgery Patient Examined: Yes Patient H&P Reviewed: Yes Patient is NPO: Yes (midnight) Beta Blockers: No
--- NOTE | 2018-09-30 08:35 | Anesthesia Consultation ---
Anesthesia Consult and Med Hx Date of service: 09/30/18 - Airway Anesthetic Teeth Evaluation: Good (overbite, with upper permanent bridge, otherwise good dentition ) ROM Head & Neck: Adequate Mental/Hyoid Distance: Adequate Mallampati Class: Class II Intubation Access Assessment: Probably Good - Pulmonary Exam CTA: Yes - Cardiac Exam Cardiac Exam: RRR - Pre-Operative Health Status ASA Pre-Surgery Classification: ASA3 Proposed Anesthetic Plan: General, MAC - Pre-Anesthesia Comment Pre-Anesthesia Comments: prior GETA for hemicolectomy in Aug 2018 - reports post-op L. sided weakness, uses cane and goes to PT but improving; likely due to postitioning in OR during case. otherwise no other problems - Pulmonary Hx Smoking: No Hx Asthma: No Hx Respiratory Symptoms: No SOB: No COPD: No - Cardiovascular System Hx Hypertension: No Hx Coronary Artery Disease: No Hx Angina: No - Central Nervous System Hx Neuromuscular Disorder: No Hx Seizures: No CVA: No Hx Psychiatric Problems: No - Gastrointestinal Hx Gastroesophageal Reflux Disease: No - Other Systems Hx Alcohol Use: No Hx Substance Use: No Hx Cancer: Yes (colon cancer dx. in 2018) - Additional Comments Anesthesia Medical History Comments: healthy 63 y.o.m. s/p hemicolectomy for colon cancer. no other medical issues. here for port placement to initiate nhi motherapy.
[2018-09-30] MEDS ORDERED: SUBLIMAZE IV PRN (08:36)
--- NOTE | 2018-09-30 08:42 | Short Stay Summary ---
Short Stay Documentation Date of service: 09/30/18 - History H&P: obtained from office - Allergies and Medications Current Medications: Allergies No Known Allergies Allergy (Verified 09/29/18 09:48) Home Medications Medication Instructions Recorded Confirmed Last Taken Type No Known Home Medications [No 09/29/18 09/29/18 Unknown History Reported Home Medications] Active Medications Famotidine (Pepcid) 20 mg IV PREOP NR Stop: 09/30/18 10:00 Last Admin: 09/30/18 08:20 Dose: 20 mg Documented by: Fentanyl (Sublimaze) 50 mcg IV Q5MIN PRN PRN Reason: Pain , Severe (7-10) Cefazolin Sodium (Ancef/Sterile Water 2 Gm/20 Ml) 2 gm in 20 mls @ 80 mls/hr IV PREOP NR; Protocol Stop: 09/30/18 23:00 Sodium Chloride (Nacl 0.9% 1000 Ml) 1,000 mls @ 125 mls/hr IV DIRECT CK Last Admin: 09/30/18 08:05 Dose: 125 mls/hr Documented by: Midazolam HCl (Versed) 2 mg IV ONCE NR Stop: 09/30/18 10:00 Last Admin: 09/30/18 08:15 Dose: 2 mg Documented by: - Physical exam General appearance: no acute distress Integumentary: no rash, no abnormal pigmentation Lungs: Normal air movement Neurological: Normal speech - Brief post op/procedure progress note Date of procedure: 09/30/18 (dictation: [id number]) Pre-op diagnosis: colon cancer Post-op diagnosis: same Procedure: US guided port placement Anesthesia: GETA Findings: normal anatomy Surgeon: ELISHA PECK Estimated blood loss: minimal Pathology: none Condition: stable - Hospital course Hospital course: uneventful - Disposition Condition at discharge: Stable Disposition: DC-01 TO HOME OR SELFCARE Short Stay Discharge Plan Activity: no restrictions Diet: regular Wound: open to air, keep clean and dry, other (apply ice to wounds for 10-15min/4-5 times a day. May shower tomorrow. Pat dry wounds. ) Special Instructions: no heavy lifting (for 1 week) Additional Instructions: ACTIVITY: NO RESTRICTIONS. DIET: REGULAR DIET. WOUND CARE: OPEN TO AIR, KEEP CLEAN AND DRY. APPLY ICE TO WOUNDS FOR 10-15 MINS/ 4-5 X A DAY. MAY SHOWER TOMORROW. PAT DRY WOUNDS TO DRY. NO HEAVY LIFTING FOR [address] FOLLOW UP WITH DR. ELISHA PECK IN 7 DAYS. Follow up with: Dionne MELENDEZ MD [Primary Care Provider] - 7 Days MARGO SNIDER MD [Staff Physician] - 7 Days Forms: Outpatient Surgery DC Inst. Prescriptions: HYDROcodone/APAP 5-325 [[place] 5/325] 1 each PO Q6HR PRN #30 tablet PRN Reason: Pain , Severe (7-10)
[2018-09-30] MEDS ORDERED: HEPARIN 10,000 UNITS/10 ML ONE (08:45)
[2018-09-30] MEDS ORDERED: NACL 0.9% 250ML 250 ML ONE (08:45)
[2018-09-30] MEDS ORDERED: MARCAINE 0.5% INFILTRATI ONE (08:45)
[2018-09-30] MEDS ORDERED: XYLOCAINE 1% 20 mL ONE (08:45)
[2018-09-30] MEDS ORDERED: GELFOAM TP ONE (08:46)
[2018-09-30] MEDS ORDERED: XYLOCAINE MPF 2% ONE (08:57)
[2018-09-30] MEDS ORDERED: DILAUDID ONE (08:57)
[2018-09-30] MEDS ORDERED: DIPRIVAN 10 MG/ML IV ONE (08:57)
[2018-09-30] MEDS ORDERED: MARCAINE-EPI 0.5%-1:200,000 INFILTRATI ONE ×3 (09:17→09:38)
[2018-09-30] MEDS ORDERED: XYLOCAINE 1% 20 mL INFILTRATI ONE ×2 (09:38)
[2018-09-30] MEDS ORDERED: HEPARIN IR ONE (09:38)
[2018-09-30] MEDS ORDERED: HEPARIN 10,000 UNITS/10 ML 1,000 UNIT in NACL 0.9% 250ML 250 ML IR ONE (09:39)
[2018-09-30] MEDS ORDERED: NORCO 5/325 PO PRN (10:07)
--- NOTE | 2018-09-30 10:18 | Fluoroscopy Report ---
FLUOROSCOPY CENTRAL VENOUS DEVICE PLACEMENT HISTORY: Colon cancer, left Rjrqyt-p-Luwk placement A left IJ Tciovi-i-Atvr has been inserted which terminates at the cavoatrial junction. No pneumothorax. AP view of the chest demonstrates a normal mediastinal and cardiac contour with clear lungs and normal bony and soft tissue structures. IMPRESSION: Unremarkable AP chest. Left Pdnrtq-n-Ozpy placement.
[2018-09-30 10:47] VITALS: BP 119/72
[2018-09-30] MEDS ORDERED: ZOFRAN ONE (10:47)
--- NOTE | 2018-09-30 11:31 | Post Anesthesia Evaluation ---
- Post Anesthesia Evaluation Patient Participated: Yes Airway Patent: Yes Stable Respiratory Function: Yes Nausea/Vomiting: No Temp > 96.8F: Yes Pain Manageable: Yes Adequeate Hydration: Yes Anesthesia Complications: No
--- NOTE | 2018-09-30 12:43 | Operative Report ---
PREOPERATIVE DIAGNOSIS: Colon cancer. POSTOPERATIVE DIAGNOSIS: Colon cancer. PROCEDURE: 1. Insertion of tunneled centrally inserted central venous access device with subcutaneous port. 2. Ultrasound guidance for vascular access. ATTENDING PHYSICIAN: Abhijeet Teixeira MD ANESTHESIA: General. ESTIMATED BLOOD LOSS: Minimal. FLUIDS: 800 mL. FINDINGS: Normal vascular anatomy. Chest x-ray done postoperatively showed good position of the catheter with no evidence of any pneumothorax or any other complications. IMPLANTS: Smart port. DRAINS: None. COMPLICATIONS: None. DISPOSITION: Stable, transferred to recovery. INDICATIONS: This is a 63-year-old male who recently had a left hemicolectomy for colon cancer. The patient was assessed to be in need for chemotherapy and a request was made for port placement. Procedure, risks, benefits were explained to the patient. Risks included but were not limited to infection, bleeding, pain, injury to surrounding structures, possible need for port replacement or removal, possible need for further procedures in the future. The patient understood and consented. OPERATIVE NOTE: The patient was brought to the operating room and placed on the table in supine position. After adequate general anesthesia was established, a roll was placed along the spine between the shoulder blades to allow the shoulders to fall back. Sterile prep and drape was performed. Time-out was called. Using ultrasound evaluation, I evaluated the left internal jugular and left subclavian vein. Based on the easy collapsibility of the vessels, the patient appeared very dehydrated. I was concerned that the patient was at risk of a through and through needlestick during the initial access; therefore, I felt it would be riskier to do the subclavian even though we are doing under ultrasound guidance that it would be safer to go with internal jugular access. Therefore, I plan to use that site. Timeout was called. Antibiotics had been administered prior to the start of the case. SCDs were in place. The patient was placed in Trendelenburg. A 1% lidocaine and 0.5% Marcaine were used to anesthetize the planned incision site. Small incision was made under ultrasound guidance. I had evaluated the entire internal jugular vein. It was easily compressible. There was no evidence of any clots or any abnormalities. The vein was wide open. I watched the echogenic needle go directly into the vein, we had easy aspiration of blood. I tried passing the guide wire at the first time; however, it got to a point that I could not pass any further and ultimately it was difficult to remove, therefore, I pulled both the needle and the wire out, held pressure and then tried again slightly inferiorly, made another small incision and then watching the echogenic needle going to the vein, I inserted the introducer needle and very easy aspiration of blood. Note, I checked the vein and surrounding area with the ultrasound prior to the second attempt. There was no hematoma in the surrounding tissue. The vein was still widely patent. At this time, the wire passed very easily. We then brought in the fluoroscopy. The guide wire was clearly going to the right side of the heart. We then secured the wire to the drapes and turned our attention to the left chest. Local anesthetic was used for the planned incision site and port placement. Oblique incision was made in the left chest. Blunt dissection was carried out in the subcutaneous tissue. We made sure that the port would easily fit in and it did. There was a small amount of bleeding, which were controlled with electrocautery and pressure. I then anesthetized the planned tunneling site. I tunneled up to the neck where the guide wire was coming out and brought the catheter out there. We then passed the dilator and sheath over the guide wire, checking at various intervals to make sure the guide wire was still easily movable, it was. Once the sheath was completely in, we checked its position with fluoroscopy, appeared to be in a good position. I then removed the dilator and wire. I held my finger over the opening of the sheath to minimize any bleeding or air embolism. We then passed the catheter in, checked its position, going for about 2 vertebral bodies below the priscilla. Once we figured out this aixa which was at about 18 cm, we then planned where we would attach, that was at about 26 cm. We excised the remainder of the catheter at that location. We attached the port and slid the collar over that connection. We placed the port in the pocket. We made sure there were no kinks along the way and then we tested the port using dilute heparinized saline. We had easy aspiration and flush. We checked the entire catheter with fluoroscopy. There were no kinks and no areas of twisting, had a normal path down to the right heart. It was approximately 2 vertebral bodies below the priscilla. I then injected the locking solution. We placed the patient in a reverse Trendelenburg position. Wounds were cleaned. Additional local was injected. I closed the port site with interrupted 3-0 Vicryl in the deep tissue and then 4-0 Monocryl subcuticular stitch in the skin. Skin sites were cleaned and dried. Dermabond was placed. The patient tolerated the procedure well. There were no complications. All counts were correct at the end of the case. Chest x-ray was done prior to leaving the room. The official report showed the catheter to be in good position with no evidence of any complications. JOB# [id number] COOPER/LOBITO QUEZADA
== END 2018-09-30 11:30 | disposition home or self-care (01) ==
LOC: OR 07:11
PROVIDERS: ATTEND Surgery
DX: C18.9 Malignant neoplasm of colon, unspecified (principal); Z79.899 Other long term (current) drug therapy; Z98.890 Other specified postprocedural states
CPT/HCPCS: 36561; 76937; 77001; A4649; C1788; J0690; J1170; J1644; J2250; J2405; J2704; J7030; J7050

== ENCOUNTER 2018-10-02 10:09 | Outpatient (CLI) | payer BC ==
--- NOTE | 2018-10-03 14:50 | PET Report ---
PET/CT:10/02/18 10:09:00 CLINICAL: Colon cancer staging. Status post recent left hemicolectomy. RADIOPHARMACEUTICAL: 12.254mCi F18-FDG. COMPARISON: 08/11/18 CT abdomen and pelvis with contrast. TECHNIQUE- Following intravenous injection of F-18 FDG and an approximately 60 minute uptake period, CT and PET images from the mid skull to the upper thighs were acquired with the patient in the fasted state. No contrast was administered. The CT protocol used for this PET CT study is designed for attenuation correction and anatomic localization of PET abnormalities. This building mover CT is not desired to produce and cannot replace, nejao-ya-zll-art diagnostic CT scans with specific imaging protocols for different body parts and indications. Plasma glucose at the time of this test: 108g/dl. The standardized uptake values (SUV) are normalized to patient body weight and indicate the highest activity concentration (SUV max) in a given disease site. FINDINGS: Brain--Physiologic FDG uptake in the visualized regions of the brain. Neck--Physiologic FDG uptake in mucosal structures. No mass or lymphadenopathy. Chest--Physiologic FDG uptake in mediastinal blood pool and myocardium. Lungs--No abnormal uptake. No pulmonary nodule or mass. Pleura/pericardium--No abnormal uptake. Thoracic nodes--No abnormal uptake. Hepatobiliary--No abnormal uptake. Liver background SUV mean, as a reference for comparing FDG studies, is 3.6 . No liver mass. A questionable tiny calculus in the gallbladder. Spleen--No abnormal uptake. An 8mm splenule in the splenic hilum. Pancreas--No abnormal uptake. Adrenal Glands--No abnormal uptake. Kidneys/Ureters/Bladder--No abnormal uptake. Abdominopelvic Nodes--No abnormal uptake. No lymphadenopathy. Bowel/Peritoneum/Mesentery--No abnormal uptake. A left colon anastomosis with no abnormal uptake at the anastomosis. Pelvic organs--No abnormal uptake. Bones/Soft Tissues--No abnormal uptake and no suspicious bone lesion. IMPRESSION- Negative study with no evidence of metastasis.Status post left hemicolectomy. Possible cholelithiasis.
== END 2018-10-02 10:10 | disposition home or self-care (01) ==
LOC: PET 10:09
PROVIDERS: ATTEND Internal Medicine Hematology & Oncology
DX: C18.9 Malignant neoplasm of colon, unspecified (principal)
CPT/HCPCS: 78815; 82962; A9552

== ENCOUNTER 2019-01-12 08:31 | Outpatient (CLI) | payer BC ==
[2019-01-12 11:31] LABS: Blood Urea Nitrogen 8 mg/dL (9-20)
--- NOTE | 2019-01-12 14:18 | Cat Scan Report ---
CT ABDOMEN PELVIS WITH CONTRAST: HISTORY: Malignant neoplasm of colon, unspecified. COMPARISON: 08/11/18. TECHNIQUE: Helical CT in 1.25mm intervals following IV contrast. Sagittal and coronal reconstructions. FINDINGS: Lung bases: Normal. Liver: Normal. Biliary system: Normal. Pancreas: Normal. Spleen: Mild splenomegaly has developed measuring 14.7 x 5.6 cm in axial plane. This is increased from 11.6 x 4.9 cm on the previous exam. No focal splenic lesion. Kidneys/ureters/bladder: Normal. Adrenal glands: Normal. Aorta: Normal. Intestines: Surgical suture line is identified in the mid descending colon consistent with tumor resection. Bowel obstruction pattern has resolved since the previous exam. No obvious recurrent GI mass, abnormal dilatation or inflammation is identified. Appendix: Normal. Ascites: None. Adenopathy: None. Musculoskeletal: Intact. No suspicious bony lesion or fracture. IMPRESSION: Interval surgical changes in the descending colon consistent with tumor resection and resolution of bowel obstruction since 08/11/18. No evidence for recurrent or metastatic disease on CT. Mild splenomegaly has developed of uncertain clinical significance.
== END 2019-01-12 08:32 | disposition home or self-care (01) ==
LOC: CT 08:31
PROVIDERS: ATTEND Internal Medicine Hematology & Oncology
DX: R16.1 Splenomegaly, not elsewhere classified (principal); C18.9 Malignant neoplasm of colon, unspecified
CPT/HCPCS: 36415; 71260; 74177; 82565; 84520; Q9967

== ENCOUNTER 2019-02-24 09:49 | Outpatient (CLI) | payer BC ==
[2019-02-24 10:38] LABS: Hematocrit 38.1 % (35.5-45.6); Hemoglobin 12.8 gm/dl (11.8-15.2); Mean Corpuscular HGB Conc 34 % (32-34); Mean Corpuscular Volume 90 fl (84-94); Red Blood Count 4.25 M/mm3 (3.65-5.03); Red Cell Distribution Width 18.1 % (13.2-15.2)
[2019-02-24 11:01] LABS: Platelet Count 66 K/mm3 (140-440)
[2019-02-24 11:05] LABS: Alanine Aminotransferase 30 units/L (7-56); Albumin 4.2 g/dL (3.9-5); BUN/Creatinine Ratio 18; Blood Urea Nitrogen 11 mg/dL (9-20); Calcium 9.3 mg/dL (8.4-10.2); Hemolysis Index 1
== END 2019-02-24 09:50 | disposition home or self-care (01) ==
LOC: LAB 09:49
DX: C18.9 Malignant neoplasm of colon, unspecified (principal)
CPT/HCPCS: 36415; 80053; 82378; 85027

== ENCOUNTER 2019-05-07 07:00 | Outpatient (CLI) | payer BC ==
--- NOTE | 2019-05-08 08:41 | PET Report ---
PET/CT HISTORY: C18.9. Restaging of colon cancer TECHNIQUE: The patient's fasting blood glucose was 99. The patient weighed 155 lbs. The patient wa s injected with 14.8 mCi of FDG in the right hand at 0805 hours and imaging was started at 0850 hours . The patient was imaged from the skull base to the thighs. All CT scans at this location are perfor med using CT dose reduction for ALARA by means of automated exposure control. Images were reviewed on a workstation. COMPARISON: 10/02/2018 FINDINGS: IMAGED BRAIN: [Physiologic FDG uptake] NECK: [Physiologic FDG uptake] CHEST WALL: [Physiologic FDG uptake] MEDIASTINUM: [Physiologic FDG uptake] LUNGS: [Physiologic FDG uptake] HEPATOBILIARY: [Physiologic FDG uptake]. 2 tiny gallstones are identified in the fundus of the gallb ladder. PANCREAS: [Physiologic FDG uptake SPLEEN: [Physiologic FDG uptake]. There is mild splenomegaly measuring 15 cm in length. KIDNEYS/BLADDER: [Physiologic FDG uptake] ADRENAL GLANDS: [Physiologic FDG uptake] GI/MESENTERY: [Physiologic FDG uptake]. Partial colectomy changes are noted. PELVIC VISCERA: [Physiologic FDG uptake] LYMPH NODES: [Physiologic FDG uptake] OSSEOUS STRUCTURES: [Physiologic FDG uptake] ADDITIONAL FINDINGS: [None] IMPRESSION: Negative PET CT. No evidence for disease recurrence or metastasis. Signer Name: Chino Vaz Jr, MD Signed: 05/08/2019 8:36 AM Workstation Name: [id number]
== END 2019-05-07 07:01 | disposition home or self-care (01) ==
LOC: PET 07:00
PROVIDERS: ATTEND Internal Medicine Hematology & Oncology
DX: C18.9 Malignant neoplasm of colon, unspecified (principal); K80.80 Other cholelithiasis without obstruction; R16.1 Splenomegaly, not elsewhere classified
CPT/HCPCS: 78815; 82962; A9552

== ENCOUNTER 2019-09-15 09:12 | Outpatient (CLI) | payer BC ==
[2019-09-15 09:45] LABS: Basophils % (Auto) 0.6 % (0.0-1.8); Eosinophils # (Auto) 0.1 K/mm3 (0.0-0.4); Eosinophils % (Auto) 1.4 % (0.0-4.3); Hematocrit 39.2 % (35.5-45.6); Hemoglobin 13.3 gm/dl (11.8-15.2); Lymphocytes # (Auto) 1.3 K/mm3 (1.2-5.4); Lymphocytes % (Auto) 25.2 % (13.4-35.0); Mean Corpuscular HGB Conc 34 % (32-34); Mean Corpuscular Volume 90 fl (84-94); Monocytes # (Auto) 0.5 K/mm3 (0.0-0.8); Monocytes % (Auto) 9.2 % (0.0-7.3); Platelet Count 106 K/mm3 (140-440); Red Blood Count 4.38 M/mm3 (3.65-5.03); Red Cell Distribution Width 15.2 % (13.2-15.2)
[2019-09-15 10:03] LABS: Alanine Aminotransferase 15 units/L (7-56); Albumin 4.3 g/dL (3.9-5); BUN/Creatinine Ratio 14; Blood Urea Nitrogen 13 mg/dL (9-20); Calcium 9.7 mg/dL (8.4-10.2); Hemolysis Index 4
== END 2019-09-15 09:13 | disposition home or self-care (01) ==
LOC: LAB 09:12
PROVIDERS: ATTEND Internal Medicine Hematology & Oncology
DX: D69.59 Other secondary thrombocytopenia (principal); C18.9 Malignant neoplasm of colon, unspecified; D70.2 Other drug-induced agranulocytosis; R16.1 Splenomegaly, not elsewhere classified; D51.3 Other dietary vitamin B12 deficiency anemia
CPT/HCPCS: 36415; 80053; 82378; 85025

== ENCOUNTER 2019-10-29 08:18 | Outpatient (CLI) | payer BC ==
[2019-10-29 08:52] LABS: Blood Urea Nitrogen 12 mg/dL (9-20)
--- NOTE | 2019-10-29 10:28 | Cat Scan Report ---
CT CHEST, ABDOMEN AND PELVIS WITH CONTRAST HISTORY: Colon cancer restaging. COMPARISON: 05/07/2019 PET/CT and 01/12/2019 CT CAP TECHNIQUE: CT images of the chest, abdomen and pelvis were obtained following administration of intra venous contrast. Oral contrast was also given. Note: All CT scans at this location are performed usin g CT dose reduction employed for ALARA by means of automated exposure control. CONTRAST: 100 ml of Omnipaque 300. FINDINGS: CT CHEST: Heart and Pericardium: No significant abnormality.A left Hmrves-h-Aoqr tip is in the right atrium. Vasculature: No significant abnormality. Lymphatics: No lymphadenopathy. Lungs: No significant abnormality. Trachea and Bronchi: No significant abnormality. Osseous Structures: Normal CT ABDOMEN: Liver: No significant abnormality. Biliary: Normal gallbladder and bile ducts. Spleen: Stable mild splenomegaly. The spleen measures 13.7 cm in length. Pancreas: No significant abnormality. Adrenals: No significant abnormality. Kidneys: No significant abnormality. The renal collecting systems and ureters are nondilated. Lymphatics: No lymphadenopathy. Vasculature: No significant abnormality. Bowel/Peritoneum: A normal anastomosis in the mid descending colon. The rest of the colon and small b owel are normal. Normal appendix. CT PELVIS: : No significant abnormality. Osseous Structures: No significant abnormality. Additional Findings: None IMPRESSION: 1. Normal chest with no evidence of metastasis. 2. Negative abdomen with a normal anastomosis of the descending colon. No evidence of disease recurre nce or metastasis. 3. Normal pelvis no evidence of metastasis. Signer Name: David Loza MD Signed: 10/29/2019 10:24 AM Workstation Name: [id number]
== END 2019-10-29 08:19 | disposition home or self-care (01) ==
LOC: CT 08:18
PROVIDERS: ATTEND Internal Medicine Hematology & Oncology
DX: C16.9 Malignant neoplasm of stomach, unspecified (principal); D69.59 Other secondary thrombocytopenia
CPT/HCPCS: 36415; 71260; 74177; 82565; 84520; Q9967

== ENCOUNTER 2020-11-01 08:22 | Outpatient (CLI) | payer BC ==
[2020-11-01 08:47] LABS: Bilirubin,Urine NEG (Negative); Blood,Urine MOD (Negative); Color,Urine Yellow (Yellow); Mucus,Urine FEW /HPF; Protein,Urine <15 mg/dL mg/dL (Negative); Urobilinogen,Urine < 2.0 mg/dL (<2.0)
[2020-11-01 08:49] LABS: Eosinophils # (Auto) 0.1 K/mm3 (0.0-0.4); Eosinophils % (Auto) 2.3 % (0.0-4.3); Hematocrit 39.6 % (35.5-45.6); Hemoglobin 13.5 gm/dl (11.8-15.2); Lymphocytes # (Auto) 1.3 K/mm3 (1.2-5.4); Lymphocytes % (Auto) 25.8 % (13.4-35.0); Mean Corpuscular HGB Conc 34 % (32-34); Mean Corpuscular Volume 90 fl (84-94); Monocytes # (Auto) 0.4 K/mm3 (0.0-0.8); Monocytes % (Auto) 7.9 % (0.0-7.3); Platelet Count 134 K/mm3 (140-440); Red Blood Count 4.38 M/mm3 (3.65-5.03); Red Cell Distribution Width 13.6 % (13.2-15.2)
--- NOTE | 2020-11-01 09:13 | XRay Report ---
CHEST 2 VIEWS INDICATION: MALIGNANT NEOPLASM OF ASCENDING COLON. COMPARISON: CT chest with contrast 10/29/2019 FINDINGS: Support devices: None. Heart: Within normal limits. Lungs/pleura: No acute air space or interstitial disease. No suspicious pulmonary lesion. No pneumoth orax. Additional findings: None. IMPRESSION: No acute findings. Signer Name: Chino Vaz Jr, MD Signed: 11/01/2020 9:09 AM Workstation Name: [id number]
[2020-11-01 09:18] LABS: Alanine Aminotransferase 10 units/L (7-56); Albumin 4.2 g/dL (3.9-5); Blood Urea Nitrogen 10 mg/dL (9-20); Calcium 8.7 mg/dL (8.4-10.2); Hemolysis Index 6
[2020-11-01 09:20] LABS: BUN/Creatinine Ratio 17
[2020-11-01 10:48] LABS: Hepatitis B Surface Antigen Non-Reactive (Negative); Hepatitis C Virus Antibody Non-Reactive (NonReactive)
== END 2020-11-01 08:23 | disposition home or self-care (01) ==
LOC: XRAY 08:22
PROVIDERS: ATTEND Internal Medicine
DX: Z12.5 Encounter for screening for malignant neoplasm of prostate (principal); Z11.59 Encounter for screening for other viral diseases; C18.2 Malignant neoplasm of ascending colon
CPT/HCPCS: 36415; 71046; 80053; 80074; 81001; 82378; 84153; 85025

== ENCOUNTER 2020-12-21 07:27 | Outpatient (CLI) | payer BC ==
--- NOTE | 2020-12-21 08:23 | XRay Report ---
CHEST 2 VIEWS INDICATION / CLINICAL INFORMATION: MALIGNANT NEOPLASM OF COLON,UNSPECIFIED PART OF COLON. COMPARISON: 11/01/2020 FINDINGS: SUPPORT DEVICES: None. HEART / MEDIASTINUM: No significant abnormality. LUNGS / PLEURA: No significant pulmonary or pleural abnormality. No pneumothorax. ADDITIONAL FINDINGS: No significant additional findings. IMPRESSION: 1. No acute findings. Signer Name: Tyler Meraz MD Signed: 12/21/2020 8:19 AM Workstation Name: [id number]
[2020-12-21 08:30] LABS: Blood Urea Nitrogen 9 mg/dL (9-20)
--- NOTE | 2020-12-21 09:42 | Cat Scan Report ---
CT abdomen pelvis w con INDICATION / CLINICAL INFORMATION: Colon cancer restaging TECHNIQUE: Routine CT abdomen pelvis with contrast following 100 mm [address] All [address] scans at this location are performed using CT dose reduction for ALARA by means of automated exposure control. COMPARISON: 10/29/2019 FINDINGS: Abdomen and pelvis: The lower lungs are grossly clear. The liver, gallbladder, spleen, pancreas adrenal glands and kidneys are grossly unremarkable. There i s evidence of partial colonic resection within the left midabdomen. No convincing evidence local recu rrence is identified. No mesenteric or retroperitoneal adenopathy identified. Urinary bladder is unre markable. No free pelvic fluid. The appendix is unremarkable. No free air or free fluid. Scattered at herosclerotic calcification of a nondilated abdominal aorta. Mild thoracolumbar degenerative changes. IMPRESSION: No evidence local recurrence or metastatic disease. No change from 10/29/2019. Signer Name: Carroll Thayer MD Signed: 12/21/2020 9:37 AM Workstation Name: [id number]
== END 2020-12-21 07:28 | disposition home or self-care (01) ==
LOC: CT 07:27
PROVIDERS: ATTEND Internal Medicine Hematology & Oncology
DX: C18.9 Malignant neoplasm of colon, unspecified (principal); I70.0 Atherosclerosis of aorta; M47.815 Spondylosis without myelopathy or radiculopathy, thoracolumbar region
CPT/HCPCS: 36415; 71046; 74177; 82565; 84520; Q9967

== ENCOUNTER 2021-02-01 09:00 | Outpatient (CLI) | payer BC ==
[2021-02-01 09:40] LABS: Basophils % (Auto) 0.9 % (0.0-1.8); Eosinophils # (Auto) 0.1 K/mm3 (0.0-0.4); Eosinophils % (Auto) 2.8 % (0.0-4.3); Hematocrit 36.7 % (35.5-45.6); Lymphocytes % (Auto) 21.4 % (13.4-35.0); Mean Corpuscular HGB Conc 35 % (32-34); Mean Corpuscular Volume 89 fl (84-94); Monocytes # (Auto) 0.4 K/mm3 (0.0-0.8); Monocytes % (Auto) 9.8 % (0.0-7.3); Platelet Count 134 K/mm3 (140-440); Red Blood Count 4.15 M/mm3 (3.65-5.03); Red Cell Distribution Width 13.5 % (13.2-15.2)
[2021-02-01 10:03] LABS: Alanine Aminotransferase 9 units/L (7-56); Albumin 4.5 g/dL (3.9-5); Blood Urea Nitrogen 11 mg/dL (9-20); Calcium 9.2 mg/dL (8.4-10.2); Hemolysis Index 5
[2021-02-01 10:20] LABS: BUN/Creatinine Ratio 18
== END 2021-02-01 09:01 | disposition home or self-care (01) ==
LOC: LAB 09:00
PROVIDERS: ATTEND Internal Medicine Hematology & Oncology
DX: E53.8 Deficiency of other specified B group vitamins (principal)
CPT/HCPCS: 36415; 80053; 82607; 82747; 85025

== ENCOUNTER 2021-12-25 07:45 | Outpatient (CLI) | payer BC ==
[2021-12-25 08:10] LABS: Basophils % (Auto) 0.8 % (0.0-1.8); Eosinophils # (Auto) 0.1 K/mm3 (0.0-0.4); Eosinophils % (Auto) 2.2 % (0.0-4.3); Hematocrit 38.3 % (35.5-45.6); Hemoglobin 13.3 gm/dl (11.8-15.2); Lymphocytes # (Auto) 1.1 K/mm3 (1.2-5.4); Lymphocytes % (Auto) 22.8 % (13.4-35.0); Mean Corpuscular HGB Conc 35 % (32-34); Mean Corpuscular Volume 90 fl (84-94); Monocytes # (Auto) 0.4 K/mm3 (0.0-0.8); Monocytes % (Auto) 9.2 % (0.0-7.3); Platelet Count 125 K/mm3 (140-440); Red Blood Count 4.27 M/mm3 (3.65-5.03); Red Cell Distribution Width 13.5 % (13.2-15.2)
[2021-12-25 08:23] LABS: Bilirubin,Urine NEG (Negative); Blood,Urine MOD (Negative); Color,Urine Yellow (Yellow); Mucus,Urine FEW /HPF; Protein,Urine <15 mg/dL mg/dL (Negative); Urobilinogen,Urine < 2.0 mg/dL (<2.0)
[2021-12-25 08:45] LABS: Alanine Aminotransferase 10 units/L (7-56); Albumin 4.5 g/dL (3.9-5); Blood Urea Nitrogen 15 mg/dL (9-20); Calcium 9.1 mg/dL (8.4-10.2); Chol/HDL Ratio 3.89 %; HDL Cholesterol 55 mg/dL (40-59); Hemolysis Index 26; LDL Cholesterol,Direct 133 mg/dL (50-130)
[2021-12-25 09:01] LABS: BUN/Creatinine Ratio 25
== END 2021-12-25 07:46 | disposition home or self-care (01) ==
LOC: LAB 07:45
PROVIDERS: ATTEND Internal Medicine
DX: Z12.5 Encounter for screening for malignant neoplasm of prostate (principal); E78.2 Mixed hyperlipidemia; C18.2 Malignant neoplasm of ascending colon; Z90.49 Acquired absence of other specified parts of digestive tract
CPT/HCPCS: 36415; 80053; 80061; 81001; 82378; 84153; 85025

== ENCOUNTER 2022-01-04 12:26 | Outpatient (CLI) | payer BC ==
--- NOTE | 2022-01-04 15:30 | Cat Scan Report ---
CT OF CHEST, ABDOMEN, AND PELVIS WITH CONTRAST INDICATION: Restaging colon cancer CONTRAST: 100 cc Omnipaque 300 IV COMPARISON: CT abdomen and pelvis 12/21/2020, CT chest, abdomen, and pelvis 10/29/[address] scans at this location are performed using CT dose reduction for ALARA by means of automated e xposure control. FINDINGS: No significant focal bony lesions. No significant axillary lesions. Moderate right gynecoma stia, an interval change since 2019. No mediastinal or hilar masses. Mild coronary artery calcificati ons. No obvious endobronchial lesions. No pleural effusions. Lung andrade clear. Tiny gallstone is seen without obvious acute abnormality. No biliary dilatation. Liver shows slight f atty infiltration without enlargement. No focal hepatic or splenic lesions are seen. Spleen is at the upper end of the normal range in size but unchanged from prior study. No abdominal masses. No urinar y obstructive changes. No lymphadenopathy. No free fluid. Appendix normal. No bowel obstruction. No f ocal bowel lesions seen.: Surgical changes are again noted. Small fatty umbilical hernia without acut e change. No pelvic masses. IMPRESSION: 1. No evidence of recurrent or metastatic colon cancer 2. Minimal cholelithiasis without acute change seen 3. Development of moderate unilateral right gynecomastia. No mass is seen but I would suggest clinica l correlation. Signer Name: Robert Handy MD Signed: 01/04/2022 3:25 PM Workstation Name: [id number]
== END 2022-01-04 12:27 | disposition home or self-care (01) ==
LOC: CT 12:26
PROVIDERS: ATTEND Internal Medicine
DX: Z08 Encounter for follow-up examination after completed treatment for malignant neoplasm (principal); N62 Hypertrophy of breast; K42.9 Umbilical hernia without obstruction or gangrene; Z85.038 Personal history of other malignant neoplasm of large intestine
CPT/HCPCS: 71260; 74177; Q9967

== ENCOUNTER 2022-03-01 08:59 | Outpatient (CLI) | payer BC | END 2022-03-01 09:00 | disposition home or self-care (01) | LOC: LAB 08:59 | PROVIDERS: ATTEND Internal Medicine | DX: R31.21 Asymptomatic microscopic hematuria (principal) | CPT/HCPCS: 88112 ==